=== PATIENT | female | born 1950 | race Hispanic/Latino ===

== ENCOUNTER 2018-01-26 02:34 | Emergency (ER) | payer BC, OTHER ==
--- OUTSIDE RECORDS SUMMARY | 2018-01-26 02:36 | XMS REPORT ---
:1950 [facility] Address [address] [place] [address] Dr. Roth [address] [place] [address] Care Team Providers Name Role Phone Nilay Robbins Unavailable Unavailable Problems This patient has no known problems. Allergies, Adverse Reactions, Alerts This patient has no known allergies or adverse reactions. Medications This patient has no known medications. Encounters Start End Encounter Admission Attending Care Care Encounter Date/Time Date/Time Type Type Clinicians Facility Department ID 2018-01-10 2018-01-10 Outpatient PALLAVI Robbins [id number] 09:13:00 09:13:00 Nilay 2017-04-12 2017-04-12 Outpatient PALLAVI Robbins [id number] 13:46:00 13:46:00 Nilay 2016-07-30 2016-07-30 Outpatient PALLAVI Robbins [id number] 13:19:00 13:19:00 Nilay
--- OUTSIDE RECORDS SUMMARY | 2018-01-26 02:36 | XMS REPORT | Clinical Summary ---
:1950 Author Organization [facility] Address [address] [place] [address] Care Team Providers Name Role Phone Casey Adkins MD Primary Care Provider Allergies Active Allergy Reactions Severity Noted Date Comments Sulfa (Sulfonamide Antibiotics) 07/09/2015 Medications Medication Sig Dispensed Refills Start End Date Status Date COPAXONE 40 mg/mL Inject 1 mL 3 0 Active syringe times a week by 6 subcutaneous route levothyroxine Take 1 tablet by 30 tablet 5 Active (SYNTHROID, mouth once daily 6 LEVOTHROID) 50 MCG on an empty tabletIndications: stomach Acquired hypothyroidism carvedilol (COREG) Take 1 tablet (25 180 tablet 3 Active 25 MG mg total) by 6 tabletIndications: mouth 2 (two) Essential times a day with hypertension meals. lisinopril Take 1 tablet (20 180 tablet 3 Active (PRINIVIL,ZESTRIL) mg total) by 6 20 MG mouth 2 (two) tabletIndications: times a day. Essential hypertension PARoxetine (PAXIL) Take 1 tablet(s) 90 tablet 3 Active 20 MG every day by oral 6 tabletIndications: route. Depression mometasone [place] 2 spray(s) 51 g 3 Active (NASONEX) 50 every day by 6 mcg/actuation nasal intranasal route. sprayIndications: Allergic rhinitis, unspecified allergic rhinitis type ondansetron Take 4 mg by 0 Active (ZOFRAN) 4 MG mouth every 8 tablet (eight) hours as needed for nausea or vomiting. CETIRIZINE HCL Take 1 tablet by 0 Active (ALLERGY RELIEF, mouth daily. CETIRIZINE, ORAL) esomeprazole 0 Active (NexIUM) 40 MG 8 capsule simethicone (GAS-X Take 1 tablet by 0 Active EXTRA STRENGTH mouth daily. ORAL) glycopyrrolate TAKE 1 TABLET BY 0 11/24/19 Discontinued (ROBINUL) 2 MG MOUTH TWICE A DAY 18 tablet cephalexin (KEFLEX) Take 500 mg by 0 11/24/19 Discontinued 500 MG capsule mouth 3 (three) 18 times a day. omeprazole Take 40 mg by 1 11/24/19 Discontinued (PriLOSEC) 40 MG mouth once daily. 7 18 capsule Active Problems Not on file Encounters Date Type Specialty Care Team Description 12/22/2017 Telephone Gastroenterology Sriram Holbrook MD 12/02/2017 Orders Only Gastroenterology Sriram Holbroko MD 11/28/2017 Telephone Gastroenterology Sriram Holbrook MD 11/25/2017 Telephone Gastroenterology Meseret Donis MA 11/23/2017 Lab Lab Sriram Holbrook, Diarrhea, unspecified MD type 11/23/2017 Office Visit Gastroenterology Sriram Holbrook, Diarrhea, unspecified MD type (Primary Dx) 03/23/2017 Office Visit Gastroenterology Sriram Holbrook PUD (peptic ulcer MD disease) (Primary Dx) after 01/25/2017 Family History Medical History Relation Name Comments No Known Problems Brother No Known Problems Father No Known Problems Maternal Aunt No Known Problems Maternal Grandfather No Known Problems Maternal Grandmother No Known Problems Maternal Uncle No Known Problems Mother No Known Problems Paternal Aunt No Known Problems Paternal Grandfather No Known Problems Paternal Grandmother No Known Problems Paternal Uncle No Known Problems Sister Relation Name Status Comments Brother Father Maternal Aunt Maternal Grandfather Maternal Grandmother Maternal Uncle Mother Paternal Aunt Paternal Grandfather Paternal Grandmother Paternal Uncle Sister Social History Tobacco Use Types Packs/Day Years Used Date Never Smoker Smokeless Tobacco: Never Used Alcohol Use Drinks/Week oz/Week Comments No Sex Assigned at Date Recorded Not on file Job Start Date Occupation Industry Not on file Not on file Not on file Travel History Travel Start Travel End No recent travel history available. 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 Respiratory Rate - - Oxygen Saturation - - Inhaled Oxygen Concentration - - Weight 59.9 kg (132 lb) 11/23/2017 1:34 PM CDT Height 152.4 cm (5') 11/23/2017 1:34 PM CDT Body Mass Index 25.78 11/23/2017 1:34 PM CDT Plan of Treatment Health Maintenance Due Date Last Done Comments BREAST CANCER SCREENING 1998 SHINGRIX VACCINE (1 of 2) 1998 ZOSTER VACCINE 2008 PNEUMOCOCCAL POLYSACCHARIDE VACCINE AGE 65 AND OVER 2013 PNEUMOCOCCAL-13 2013 INFLUENZA VACCINE 09/21/2017 COLON CANCER SCREENING 09/18/2025 09/19/2015 Procedures Procedure Name Priority Date/Time Associated Comments Diagnosis TEST IN QUESTION - NO Routine 12/02/2017 10:16 Results for this TEST FOR CONTAINER AM CDT procedure are in the results section. PDGFRA MUTATION Routine 12/02/2017 10:16 Results for this ANALYSIS AM CDT procedure are in the results section. C-REACTIVE PROTEIN Routine 11/23/2017 1:51 Diarrhea, Results for this PM CDT unspecified type procedure are in the results section. SEDIMENTATION RATE Routine 11/23/2017 1:51 Diarrhea, Results for this PM CDT unspecified type procedure are in the results section. BASIC METABOLIC PANEL Routine 11/23/2017 1:51 Diarrhea, Results for this PM CDT unspecified type procedure are in the results section. CBC HEMOGRAM Routine 11/23/2017 1:51 Diarrhea, Results for this PM CDT unspecified type procedure are in the results section. after 01/25/2017 Results PDGFRA mutation analysis (12/02/2017 10:16 AM CDT) PDGFRA MUTATION ANALYSIS [facility] Comment: [facility] * Test not performed.* * No suitable specimen received. * Narrative Performed At FASTING: [facility]KNOWN [facility] Resulting Agency Comment Performing Organization Information: Site ID: [id number] Name: [facility] [place], Address: [address] [place] [phone] Director: Ni Stoner MD,PhD,RAJIV Performing Organization Address City/[facility] Cent[facility] Phone Number [facility] [address] [place] [address] [phone] [facility] [place] TEST IN QUESTION - NO TEST FOR CONTAINER (12/02/2017 10:16 AM CDT) TEST IN QUESTION - NO [facility] TEST FOR CONTAINER Comment: NO TEST(S) ARE INDICATED ON THE REQUISITION FOR THE FOLLOWING SPECIMEN(S). SPECIMEN(S) RECEIVED: RAW STOOL [facility] Comment [facility] Comment: To prevent further delays in testing, please complete information above and fax to [phone] to resolve this order. NO COLLECTION DATE RECEIVED. WE HAVE USED THE DATE THE SPECIMEN WAS RECEIVED BY THIS LABORATORY THE COLLECTION DATE. IF THIS IS INCORRECT, PLEASE CONTACT CLIENT SERVICES. PHONE NUMBER: [phone] Narrative Performed At FASTING: [facility] Resulting Agency Comment Performing Organization Information: Site ID: [id number] Name: [facility] Address: [address] [place] [phone] Director: Regi Zamudio Performing Organization Address [facility] Phone Number [facility] [address] [address] Sedimentation rate (11/23/2017 1:51 PM CDT) Sedimentation rate 9 < OR=30 mm/h [facility] [place] Specimen Blood Resulting Agency Comment Performing Organization Information: Site ID: [id number] Name: [facility] Address: [address] [place] [phone] Director: Regi Zamudio Performing Organization Address [facility] Phone Number [facility] [address] [address] CBC hemogram (11/23/2017 1:51 PM CDT) WBC 5.9 3.8 - 10.8 Thousand/uL [facility] [place] RBC 4.68 3.80 - 5.10 Million/uL [facility] [place] HGB 14.0 11.7 - 15.5 g/dL [facility] HCT 42.4 35.0 - 45.0 % [facility] [place] MCV 90.6 80.0 - 100.0 fL [facility] [place] MCH 29.9 27.0 - 33.0 pg [facility] [place] MCHC 33.0 32.0 - 36.0 g/dL [facility] [place] RDW 12.3 11.0 - 15.0 % [facility] [place] Platelet count 268 140 - 400 Thousand/uL [facility] [place] MPV 10.6 7.5 - 12.5 fL [facility] [place] Specimen Blood Resulting Agency Comment Performing Organization Information: Site ID: [id number] Name: [facility] Address: [address] [place] [phone] Director: Regi Zamudio Performing Organization Address City/[facility] Phone Number [facility] [address] [address] C-reactive protein (11/23/2017 1:51 PM CDT) CRP 1.0 <8.0 mg/L [facility] [place] Specimen Blood Resulting Agency Comment Performing Organization Information: Site ID: [id number] Name: [facility] Address: [address] [place] [phone] Director: Regi Zamudio Performing Organization Address City/[facility] Phone Number [facility] [address] [address] Basic metabolic panel (11/23/2017 1:51 PM CDT) Glucose 88 65 - 99 mg/dL [facility] Comment: [place] Fasting reference interval BUN, whole blood 16 7 - 25 mg/dL [facility] [place] Creatinine 0.57 0.50 - 0.99 [facility] Comment: mg/dL [place] For patients >49 years of age, the reference limit for Creatinine is approximately 13% higher for people identified as -Australian. EGFR Non-Afr. Australian 95 > OR=60 [facility] mL/min/1.73m2 [place] EGFR 110 > OR=60 [facility] mL/min/1.73m2 [place] BUN/creatinine ratio NOT APPLICABLE 6 - 22 (calc) [facility] [place] Sodium 144 135 - 146 mmol/L [facility] Potassium 4.7 3.5 - 5.3 mmol/L [facility] [place] Chloride 106 98 - 110 mmol/L [facility] [place] CO2 30 20 - 32 mmol/L [facility] [place] Calcium 9.5 8.6 - 10.4 mg/dL [facility] [place] Specimen Blood Resulting Agency Comment Performing Organization Information: Site ID: [id number] Name: [facility] Address: [address] [place] [phone] Director: Regi Zamudio Performing Organization Address City/State/[facility]ode Phone Number [facility] [address] [place] [address] after 01/25/2017 Insurance Payer Benefit Plan / Group Subscriber ID Type Phone Address BCBS BCBS CHOICE PPO/FEDERAL EMPL PPO xxxxxxxxxxxx PPO
--- OUTSIDE RECORDS SUMMARY | 2018-01-26 02:36 | XMS REPORT | Clinical Summary ---
:1950 Author Organization [facility] Address [address] [place] [address] Care Team Providers Name Role Phone Unavailable Primary Care Provider Unavailable Allergies Active Allergy Reactions Severity Noted Date Comments Sulfa (Sulfonamide Antibiotics) Hives 09/18/2015 Medications Medication Sig Dispensed Refills Start Date End Date Status lisinopril Take 20 mg by 0 Active (PRINIVIL,ZESTRIL) 20 mouth daily. MG tablet carvedilol (COREG) 12.5 Take 12.5 mg by 0 Active MG tablet mouth 2 (two) times daily with breakfast and dinner. glycopyrrolate Take 2 mg by 0 Active (ROBINUL) 2 MG tablet mouth 3 (three) times daily. glatiramer (COPAXONE) Inject 0 Active 40 mg/mL Syrg subcutaneously. Active Problems Not on file Social History Tobacco Use Types Packs/Day Years Used Date Former Smoker Quit: 09/17/1977 Alcohol Use Drinks/Week oz/Week Comments No Sex Assigned at Date Recorded Not on file Job Start Date Occupation Industry Not on file Not on file Not on file Travel History Travel Start Travel End No recent travel history available. Last Filed Vital Signs Not on file Plan of Treatment Not on file Results Not on fileafter 01/25/2017 Insurance Payer Benefit Plan / Group Subscriber ID Type Phone Address [employer] - [employer] HMO POS QPOS xxxxxxxxxx HMO/POS
[2018-01-26 03:41] LABS: Absolute Lymphocytes (CBC) 1.6 K/uL (0.7-4.9); Absolute Monocytes 0.4 K/uL (0.1-1.3); Absolute Neutrophil 8.1 K/uL (1.8-8.0); Basophils % 0.8 % (0-1.3); Eosinophils % 0.4 % (0-4.4); Hematocrit 42.5 % (36.0-45.0); Lymphocytes % 15.8 % (15.3-44.8); MCH 30.8 pg (27.0-35.0); MCV 89.5 fL (80-100); Monocytes % 4.3 % (3.3-12.3); RBC Red Blood Cell Count 4.75 M/uL (3.86-4.86)
[2018-01-26 04:06] LABS: ALT/SGPT 33 U/L (12-78); AST/SGOT 18 U/L (15-37); Albumin 3.8 g/dL (3.4-5.0); Alkaline Phosphatase 136 U/L (45-117); BUN Blood Urea Nitrogen 14 mg/dL (7-18); Bicarbonate 27 mmol/L (21-32); Bilirubin Direct 0.1 mg/dL (0-0.2); Bilirubin Total 0.4 mg/dL (0.2-1.0); Glucose Level 151 mg/dL (74-106); Lipase 200 U/L (73-393); Potassium 3.4 mmol/L (3.5-5.1); Protein, Total 7.7 g/dL (6.4-8.2); Sodium Level 137 mmol/L (136-145)
--- NOTE | 2018-01-26 05:38 | ER ---
Nurse's Notes [facility] Name: Ramandeep Gooden Age: 67 yrs Sex: Female : 1950 Arrival Date: 01/26/2018 Time: 02:35 Bed 18 Private MD: Casey Adkins Diagnosis: Anal fissure, unspecified;Left sided colitis Presentation: 01/26 03:14 Presenting complaint: Patient states: rectal pain and bleeding after straining to have aa1 a bowel movement yesterday morning. Reports being seen by Dr. Guerrero and was told to come to the ED if her pain became worse. Pt reports bright red blood mixed with stool. Transition of care: patient was not received from another setting of care. Onset of symptoms was January 25, 2018 at 10:30. Risk Assessment: Do you want to hurt yourself or someone else? Patient reports no desire to harm self or others. Initial Sepsis Screen: Does the patient meet any 2 criteria? No. Patient's initial sepsis screen is negative. Does the patient have a suspected source of infection? No. Patient's initial sepsis screen is negative. Care prior to arrival: None. 03:14 Method Of Arrival: Ambulatory aa1 03:14 Acuity: BLAINE 3 aa1 Historical: - Allergies: 03:23 Sulfa (Sulfonamide Antibiotics); aa1 - Home Meds: 03:23 Lisinopril Oral [Active]; Paxil Oral [Active]; levothyroxine oral [Active]; aa1 - PMHx: 03:23 Diabetes - NIDDM; Multiple Sclerosis; Hypertension; Hypothyroidism; aa1 - PSHx: 03:23 Hysterectomy; Appendectomy; Cholecystectomy; aa1 - Immunization history:: Flu vaccine is up to date. - Social history:: Smoking status: Patient/guardian denies using tobacco. - Ebola Screening: : No symptoms or risks identified at this time. Screenin:24 Abuse screen: Denies threats or abuse. Denies injuries from another. Nutritional aa1 screening: No deficits noted. Tuberculosis screening: No symptoms or risk factors identified. Fall Risk None identified. Assessment: 03:24 General: Appears in no apparent distress. comfortable, Behavior is calm, cooperative, aa1 appropriate for age. Pain: Complains of pain in anus. Neuro: Level of Consciousness is awake, alert, obeys commands, Oriented to person, place, time, situation, Moves all extremities. Respiratory: Airway is patent Respiratory effort is even, unlabored, Respiratory pattern is regular, symmetrical. GI: Abdomen is non-distended, Bowel sounds present X 4 quads. Abd is soft X 4 quads Reports lower abdominal pain, rectal bleeding, bloody stool. : No signs and/or symptoms were reported regarding the genitourinary system. EENT: No signs and/or symptoms were reported regarding the EENT system. Derm: Skin is intact, is healthy with good turgor, Skin is pink, warm \T\ dry. Musculoskeletal: Circulation, motion, and sensation intact. Capillary refill < 3 seconds. 05:16 Reassessment: Patient appears in no apparent distress at this time. Patient and/or aa1 family updated on plan of care and expected duration. Pain level reassessed. Patient is alert, oriented x 3, equal unlabored respirations, skin warm/dry/pink. Awaiting CT results. 06:00 Reassessment: Patient appears in no apparent distress at this time. Patient is alert, aa1 oriented x 3, equal unlabored respirations, skin warm/dry/pink. Discussed d/c \T\ f/u instructions with pt; denies questions or concerns at this time Patient states feeling better. Vital Signs: 03:23 BP 178 / 98; Pulse 88; Resp 18; Temp 98.0; Pulse Ox 98% ; Weight 59.87 kg; Height 5 ft. aa1 0 in. (152.40 cm); 04:42 BP 167 / 88; Pulse 76; Resp 16; Pulse Ox 99% on R/A; aa1 05:14 BP 157 / 91; Pulse 92; Resp 18; Pulse Ox 98% on R/A; aa1 06:00 BP 167 / 89; Pulse 71; Resp 18; Temp 98.1; Pulse Ox 98% on R/A; Pain 0/10; aa1 03:23 Body Mass Index 25.78 (59.87 kg, 152.40 cm) aa1 ED Course: 02:35 Patient arrived in ED. es 02:36 Casey Adkins MD is Private Physician. es 03:01 Arias Marin MD is Attending Physician. gs 03:12 Jasmin Samuels RN is Primary Nurse. aa1 03:15 Served as a toy packer during rectal exam. aa1 03:18 Triage completed. aa1 03:23 Arm band placed on right wrist. aa1 03:24 Patient has correct armband on for positive identification. Placed in gown. Bed in low aa1 position. Call light in reach. Pulse ox on. NIBP on. Warm blanket given. 03:24 Initial lab(s) drawn, by ED staff, sent to lab. Inserted saline lock: 18 gauge in left aa1 antecubital area, using aseptic technique. ,using aseptic technique. by Brandt Quinn RN Blood collected. 03:33 Radiology exam delayed due to lab results not completed at this time. (BUN/Creatinine). 04:50 CT completed. Patient tolerated procedure well. Patient moved to CT via wheelchair. Patient moved back from CT. 05:35 Nicho Guerrero MD is Referral Physician. 06:02 IV discontinued, intact, bleeding controlled, No redness/swelling at site. Pressure aa1 dressing applied. 06:19 CT Abd/Pelvis - W/Contrast In Process Unspecified. EDMS Administered Medications: No medications were administered Outcome: 05:38 Discharge ordered by . 06:02 Discharged to home ambulatory. aa1 06:02 Condition: good 06:02 Discharge instructions given to patient, Instructed on discharge instructions, follow up and referral plans. medication usage, Demonstrated understanding of instructions, follow-up care, medications, Prescriptions given X 1. 06:03 Patient left the ED. aa1 Signatures: Dispatcher [employer] EDMS Jasmin Samuels RN RN aa1 Maryam Peguero Ervin Arias Marin MD MD
--- NOTE | 2018-01-26 05:39 | EDPHYS ---
Physician Documentation [facility] Name: Ramandeep Gooden Age: 67 yrs Sex: Female : 1950 Arrival Date: 01/26/2018 Time: 02:35 Bed 18 Private MD: Casey Adkins ED Physician Arias Marin HPI: 01/26 05:24 This 67 yrs old Female presents to ER via Ambulatory with complaints of Rectal gs Pain, Rectal Bleeding. 05:24 The patient presents to the emergency department with bleeding from the rectum/anus, gs pain in the rectal area. Onset: The symptoms/episode began/occurred today. 05:24 Associate signs and symptoms: Pertinent positives: abdominal pain in the left lower gs quadrant, constipation. The patient has experienced similar episodes in the past, a few times. The patient has been recently seen by a physician: Dr. mcneal. Historical: - Allergies: 03:23 Sulfa (Sulfonamide Antibiotics); aa1 - Home Meds: 03:23 Lisinopril Oral [Active]; Paxil Oral [Active]; levothyroxine oral [Active]; aa1 - PMHx: 03:23 Diabetes - NIDDM; Multiple Sclerosis; Hypertension; Hypothyroidism; aa1 - PSHx: 03:23 Hysterectomy; Appendectomy; Cholecystectomy; aa1 - Immunization history:: Flu vaccine is up to date. - Social history:: Smoking status: Patient/guardian denies using tobacco. - Ebola Screening: : No symptoms or risks identified at this time. ROS: 05:24 All other systems are negative. gs Exam: 05:24 Head/Face: Normocephalic, atraumatic. Eyes: Pupils equal round and reactive to light, gs extra-ocular motions intact. Lids and lashes normal. Conjunctiva and sclera are non-icteric and not injected. Cornea within normal limits. Periorbital areas with no swelling, redness, or edema. ENT: Nares patent. No nasal discharge, no septal abnormalities noted. Tympanic membranes are normal and external auditory canals are clear. Oropharynx with no redness, swelling, or masses, exudates, or evidence of obstruction, uvula midline. Mucous membranes moist. Neck: Trachea midline, no thyromegaly or masses palpated, and no cervical lymphadenopathy. Supple, full range of motion without nuchal rigidity, or vertebral point tenderness. No Meningismus. Chest/axilla: Normal chest wall appearance and motion. Nontender with no deformity. No lesions are appreciated. Cardiovascular: Regular rate and rhythm with a normal S1 and S2. No gallops, murmurs, or rubs. Normal PMI, no JVD. No pulse deficits. Respiratory: Lungs have equal breath sounds bilaterally, clear to auscultation and percussion. No rales, rhonchi or wheezes noted. No increased work of breathing, no retractions or nasal flaring. Skin: Warm, dry with normal turgor. Normal color with no rashes, no lesions, and no evidence of cellulitis. MS/ Extremity: Pulses equal, no cyanosis. Neurovascular intact. Full, normal range of motion. Neuro: Awake and alert, GCS 15, oriented to person, place, time, and situation. Cranial nerves II-XII grossly intact. Motor strength 5/5 in all extremities. Sensory grossly intact. Cerebellar exam normal. Normal gait. 05:24 Constitutional: The patient appears alert, awake. 05:24 Abdomen/GI: Palpation: mild abdominal tenderness, in the left lower quadrant, rebound tenderness, is not appreciated, Rectal exam: tenderness, that is mild, large fissure, the exam is chaperoned by the nurse. Vital Signs: 03:23 BP 178 / 98; Pulse 88; Resp 18; Temp 98.0; Pulse Ox 98% ; Weight 59.87 kg; Height 5 ft. aa1 0 in. (152.40 cm); 04:42 BP 167 / 88; Pulse 76; Resp 16; Pulse Ox 99% on R/A; aa1 05:14 BP 157 / 91; Pulse 92; Resp 18; Pulse Ox 98% on R/A; aa1 06:00 BP 167 / 89; Pulse 71; Resp 18; Temp 98.1; Pulse Ox 98% on R/A; Pain 0/10; aa1 03:23 Body Mass Index 25.78 (59.87 kg, 152.40 cm) aa1 MDM: 03:07 Patient medically screened. 05:24 Differential diagnosis: hemorrhoids, fissure, diverticulitis. Data reviewed: vital gs signs, nurses notes. Response to treatment: the patient's symptoms have markedly improved after treatment, and as a result, I will discharge patient. 01/26 03:08 Order name: Basic Metabolic Panel 01/26 03:08 Order name: CBC with Diff 01/26 03:08 Order name: Creatinine for Radiology 01/26 03:08 Order name: Hepatic Function 01/26 03:08 Order name: Lipase 01/26 04:02 Order name: CBC with Automated Diff; Complete Time: 05:33 EDMS 01/26 03:08 Order name: IV Saline Lock; Complete Time: 03:28 01/26 03:08 Order name: Labs collected and sent; Complete Time: 03:28 01/26 03:08 Order name: CT Abd/Pelvis - W/Contrast 01/26 04:03 Order name: Creatinine (Radiology Only); Complete Time: 05:33 EDMS 01/26 04:07 Order name: Basic Metabolic Panel; Complete Time: 05:33 EDMS 01/26 04:07 Order name: Liver (Hepatic) Function; Complete Time: 05:33 EDMS 01/26 04:07 Order name: Lipase; Complete Time: 05:33 EDMS Administered Medications: No medications were administered Disposition: 01/26/18 05:38 Discharged to Home. Impression: Anal fissure, unspecified, Left sided colitis. - Condition is Stable. - Discharge Instructions: Anal Fissure, Adult, [id number], Colitis. - Prescriptions for Flagyl 500 mg Oral Tablet - take 1 tablet by ORAL route every 12 hours for 7 days; 14 tablet. - Medication Reconciliation Form, Thank You Letter, Antibiotic Education, Prescription Opioid Use form. - Follow up: Nicho Mcneal MD; When: 2 - 3 days; Reason: Re-evaluation by your physician. Signatures: Dispatcher [employer] EDMS Jasmin Samuels RN RN aa1 Arias Marin MD MD Corrections: (The following items were deleted from the chart) 06:03 05:38 01/26/2018 05:38 Discharged to Home. Impression: Anal fissure, unspecified; Left aa1 sided colitis. Condition is Stable. Forms are Medication Reconciliation Form, Thank You Letter, Antibiotic Education, Prescription Opioid Use. Follow up: Nicho Mcneal; When: 2 - 3 days; Reason: Re-evaluation by your physician.
[2018-01-26 06:11] VITALS: O2SAT 98
[2018-01-26 06:12] VITALS: BP 167/89; TEMP 98.1
--- NOTE | 2018-01-26 07:28 | RAD REPORT ---
EXAM DESCRIPTION: CT - Abdomen Pelvis W Contrast - 01/26/2018 5:31 am CLINICAL HISTORY: Abdominal pain, pelvic pain, rectal pain with bloody stool ; prior hysterectomy, a ppendectomy and cholecystectomy. A preliminary report was provided at the time of the study and reviewed prior to final report. COMPARISON: CT study May 2010 TECHNIQUE: Biphasic, helical CT imaging of the abdomen and pelvis was performed following 100 ml non -ionic IV contrast. Oral contrast was given. All CT scans are performed using dose optimization technique as appropriate and may include automated exposure control or mA/KV adjustment according to patient size. FINDINGS: No infiltrate, pleural effusion or acute lung base finding. A 5 millimeter noncalcified no dule is present in the posterior right lung base not clearly seen on the 2010 comparison. No follow-u p is needed if the patient is considered low risk. For a high risk patient, CT study could be perform ed in 12 months. The liver, spleen, and pancreas show no suspicious findings. Cholecystectomy clips are present with n o abnormal biliary tree dilatation. Symmetric renal function is seen with no hydronephrosis or suspicious renal mass. No pyelonephritis o r acute renal parenchymal process. Mostly contracted urinary bladder shows no suspicious findings. Ut erus is absent. Ovaries are absent or atrophic. No gastric dilatation or wall thickening. Stomach is distended but not dilated by retained fluid. Thi s may be a gastro paresis secondary to subsequently detailed colon findings. Gastric outlet is not pinto spected. No acute small bowel finding. Moderate stool volume is seen in the right-side of the colon. No suspicious finding in the right-side of the colon. Transverse colon is mostly decompressed. There is an 11 millimeter rounded low-density area in the mid transverse colon. This is probably focal flui d. A hypodense polyp would be possible and can be correlated with any recent or pending colonoscopy. At the splenic flexure wall thickening and edema are seen in the colon. The circumferential wall thic kening and edema progress along the course of the descending colon sigmoid colon and rectum. Congesti on or edema is seen in the adjacent fatty tissues. No one focal area of masslike density seen. No free air, free fluid or pneumatosis. No mass or bulky lymphadenopathy. Small periumbilical fat onl y hernia seen. This has not change from 2011. No omental thickening. No adrenal abnormality. No suspicious bony findings. IMPRESSION: Nonspecific moderate severity colitis pattern from splenic flexure to distal rectum. Sev erity is less than what was seen in 2011. No focal colon mass identified. Low-density area in the mid transverse colon is probably focal fluid. Mid transverse colon hypodense polyp would be possible and can be correlated with any prior or pendi ng colonoscopy. No abscess, free air or surgically emergent finding. Fluid distended stomach likely a gastro paresis related to the colitis. Gastric outlet obstruction or mass not suspected. Small 5 mm right lung base pulmonary nodule warranting no further follow-up if the patient is low ris k. High risk patient can be re-evaluated with CT in 12 months.
== END 2018-01-26 06:03 | disposition home or self-care (01) ==
LOC: ER 02:34
DX: K60.2 Anal fissure, unspecified (principal); K51.50 Left sided colitis without complications; I10 Essential (primary) hypertension; E11.9 Type 2 diabetes mellitus without complications; E03.9 Hypothyroidism, unspecified; Z88.2 Allergy status to sulfonamides
CPT/HCPCS: 36415; 74177; 80048; 80076; 83690; 85025; 99284; Q9967

== ENCOUNTER 2018-01-26 18:07 | Observation (INO) | payer BC, OTHER ==
--- OUTSIDE RECORDS SUMMARY | 2018-01-26 18:09 | XMS REPORT ---
:1950 [facility] Address [address] [place] [address] Dr. Roth [address] [place] [id number] Care Team Providers Name Role Phone Nilay Robbins Unavailable Unavailable Problems This patient has no known problems. Allergies, Adverse Reactions, Alerts This patient has no known allergies or adverse reactions. Medications This patient has no known medications. Encounters Start End Encounter Admission Attending Care Care Encounter Date/Time Date/Time Type Type Clinicians Facility Department ID 2018-01-10 2018-01-10 Outpatient PALLAVI Robbins [id number] 09:13:00 09:13:00 Nilay 2017-04-12 2017-04-12 Outpatient PALLAVI Robbins [id number] 13:46:00 13:46:00 Nilay 2016-07-30 2016-07-30 Outpatient PALLAVI Robbins [id number] 13:19:00 13:19:00 Nilay
--- OUTSIDE RECORDS SUMMARY | 2018-01-26 18:09 | XMS REPORT | Clinical Summary ---
:1950 Author Organization [facility] Address [address] [place] [id number] Care Team Providers Name Role Phone Unavailable [...]
--- OUTSIDE RECORDS SUMMARY | 2018-01-26 18:09 | XMS REPORT | Clinical Summary ---
:1950 Author Organization [facility] Address [address] [place] [address] Care Team Providers Name Role Phone Casey [...] by oral 6 tabletIndications: route. 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 * Narrative Performed At FASTING: [facility]KNOWN [facility] Resulting Agency Comment Performing Organization Information: Site ID: [id number] Name: [facility], Address: [address] [place] [id number] Director: Ni Stoner MD,PhD,RAJIV Performing Organization Address [facility] Phone Number [facility] [address] [place] [address] [facility] TEST IN [facility] - NO TEST FOR CONTAINER (12/02/2017 10:16 AM CDT) TEST IN [facility] - NO [facility] TEST FOR CONTAINER Comment: NO TEST(S) ARE INDICATED ON THE REQUISITION FOR THE FOLLOWING SPECIMEN(S). SPECIMEN(S) RECEIVED: RAW STOOL [facility] Comment [facility] Comment: To prevent further delays in testing, please complete information above and fax to [phone] to resolve this order. NO COLLECTION DATE RECEIVED. WE HAVE USED THE DATE THE SPECIMEN WAS RECEIVED BY THIS LABORATORY THE COLLECTION DATE. IF THIS IS INCORRECT, PLEASE CONTACT CLIENT SERVICES. PHONE NUMBER: [phone] Narrative Performed At FASTING: [facility] Resulting Agency Comment Performing Organization Information: Site ID: [id number] Name: [facility] Address: [address] [place] [phone] Director: Regi Zamudio Performing Organization Address [facility] Phone Number [facility] [address] [address] Sedimentation rate (11/23/2017 1:51 PM CDT) Sedimentation rate 9 < OR=30 mm/h [facility] Specimen Blood Resulting Agency Comment Performing Organization Information: Site ID: [id number] Name: [facility] Address: [address] [place] [phone] Director: Regi Zamudio Performing Organization Address [facility] Phone Number [facility] [facility] [address] [address] CBC hemogram (11/23/2017 1:51 PM CDT) WBC 5.9 3.8 - 10.8 Thousand/uL [facility] RBC 4.68 3.80 - 5.10 Million/uL [facility] HGB 14.0 11.7 - 15.5 g/dL [facility] HCT 42.4 35.0 - 45.0 % [facility] MCV 90.6 80.0 - 100.0 fL [facility] MCH 29.9 27.0 - 33.0 pg [facility] MCHC 33.0 32.0 - 36.0 g/dL [facility] RDW 12.3 11.0 - 15.0 % [facility] [place] Platelet count 268 140 - 400 Thousand/uL [facility] MPV 10.6 7.5 - 12.5 fL [facility] Specimen Blood Resulting Agency Comment Performing Organization Information: Site ID: [id number] Name: [facility] Address: [address] [place] [phone] Director: Regi Zamudio Performing Organization Address [facility] Phone Number [employer] [address] [address] C-reactive protein (11/23/2017 1:51 PM CDT) CRP 1.0 <8.0 mg/L [facility] Specimen Blood Resulting Agency Comment Performing Organization Information: Site ID: [id number] Name: [facility] Address: [address] [place] [phone] Director: Regi Zamudio Performing Organization Address [facility] Phone Number [facility] [address] [address] Basic metabolic panel (11/23/2017 1:51 PM CDT) Glucose 88 65 - 99 mg/dL [facility] Comment: [facility] Fasting reference interval BUN, whole blood 16 7 - 25 mg/dL [facility] Creatinine 0.57 0.50 - 0.99 [facility] Comment: mg/dL [facility] For patients >49 years of age, the reference limit for Creatinine is approximately 13% higher for people identified as -Maldivian. EGFR Non-Afr. Maldivian 95 > OR=60 [facility] mL/min/1.73m2 [place] EGFR 110 > OR=60 [facility] mL/min/1.73m2 [place] BUN/creatinine ratio NOT APPLICABLE 6 - 22 (calc) [facility] Sodium 144 135 - 146 mmol/L [facility] Potassium 4.7 3.5 - 5.3 mmol/L [facility] [place] Chloride 106 98 - 110 mmol/L [facility] CO2 30 20 - 32 mmol/L [facility] [place] Calcium 9.5 8.6 - 10.4 mg/dL [facility] Specimen Blood Resulting Agency Comment Performing Organization Information: Site ID: [id number] Name: [facility] Address: [address] [place] [phone] Director: Regi Zamudio Performing Organization Address City/[facility] Phone Number [facility] [place] [address] [place] [address] after 01/25/2017 Insurance Payer Benefit Plan / Group Subscriber ID Type Phone Address BCBS BCBS CHOICE PPO/FEDERAL EMPL PPO xxxxxxxxxxxx PPO
[2018-01-26] MEDS ORDERED: MORPHINE 2 MG/ML SYR ONE (19:14)
[2018-01-26] MEDS ORDERED: NA CHLORIDE 0.9% 1,000 ML ONE (19:14)
[2018-01-26 19:32] LABS: ALT/SGPT 36 U/L (12-78); AST/SGOT 18 U/L (15-37); Albumin 3.9 g/dL (3.4-5.0); Alkaline Phosphatase 130 U/L (45-117); BUN Blood Urea Nitrogen 12 mg/dL (7-18); Bicarbonate 27 mmol/L (21-32); Bilirubin Direct < 0.1 mg/dL (0-0.2); Bilirubin Total 0.3 mg/dL (0.2-1.0); Glucose Level 130 mg/dL (74-106); Lipase 204 U/L (73-393); Potassium 3.7 mmol/L (3.5-5.1); Protein, Total 7.8 g/dL (6.4-8.2); Sodium Level 139 mmol/L (136-145)
[2018-01-26 20:07] LABS: Absolute Lymphocytes (CBC) 1.8 K/uL (0.7-4.9); Absolute Monocytes 0.6 K/uL (0.1-1.3); Basophils % 0.6 % (0-1.3); Eosinophils % 0.5 % (0-4.4); Hematocrit 47.1 % (36.0-45.0); Lymphocytes % 17.2 % (15.3-44.8); MCH 30.7 pg (27.0-35.0); MCV 91.9 fL (80-100); MPV 8.6 fL (7.6-11.3); Monocytes % 5.4 % (3.3-12.3); RBC Red Blood Cell Count 5.13 M/uL (3.86-4.86)
[2018-01-26 20:27] LABS: Protime INR 1.01
[2018-01-26 21:02] LABS: Urine Blood 1+ (NEG); Urine Glucose NEGATIVE (NEG); Urine Protein NEGATIVE (NEG)
[2018-01-26] MEDS ORDERED: METRONIDAZOLE 500mg IVPB 500 MG/100 ML BAG IV ONE (21:20)
--- NOTE | 2018-01-26 21:39 | ER ---
Nurse's Notes [facility] Name: Ramandeep Gooden Age: 67 yrs Sex: Female : 1950 Arrival Date: 01/26/2018 Time: 18:08 Bed 27 Private MD: Nicho Guerrero H Diagnosis: Other abdominal pain;Colitis;Gastrointestinal hemorrhage, unspecified Presentation: 01/26 18:40 Presenting complaint: Patient states: PATIENT HAVE A BLOODY STOOL WHICH STARTED rv YESTERDAY. SHE WENT TO CLINIC BUT SENT HERE IN ED. DIAGNOSTICS WERE DONE AND WAS DISCHARGE AT 0600H. SHE TOOK FIRST DOSE OF PRESCRIBED MEDS. SHE STILL COMPLAINS OF ABDOMINAL PAIN AND BLOODY STOOL. Transition of care: patient was not received from another setting of care. Onset of symptoms was January 25, 2018 at 08:00. Risk Assessment: Do you want to hurt yourself or someone else? Patient reports no desire to harm self or others. Initial Sepsis Screen: Does the patient meet any 2 criteria? No. Patient's initial sepsis screen is negative. Does the patient have a suspected source of infection? No. Patient's initial sepsis screen is negative. Care prior to arrival: None. 18:40 Method Of Arrival: Ambulatory rv 18:40 Acuity: BLAINE 3 rv Historical: - Allergies: 18:44 Sulfa (Sulfonamide Antibiotics); rv 18:44 MILK PRODUCTS; rv - Home Meds: 18:44 levothyroxine oral [Active]; lisinopril Oral [Active]; Paxil Oral [Active]; rv - PMHx: 18:44 Diabetes - NIDDM; Hypertension; Hypothyroidism; Multiple Sclerosis; rv - PSHx: 18:44 Hysterectomy; Cholecystectomy; rv - Immunization history:: Adult Immunizations up to date, Flu vaccine is up to date. - Social history:: Smoking status: Patient/guardian denies using tobacco, never smoked. - Ebola Screening: : Patient negative for fever greater than or equal to 101.5 degrees Fahrenheit, and additional compatible Ebola Virus Disease symptoms Patient denies exposure to infectious person Patient denies travel to an Ebola-affected area in the 21 days before illness onset. Screenin:45 Abuse screen: Denies threats or abuse. Denies injuries from another. Nutritional rv screening: No deficits noted. Tuberculosis screening: No symptoms or risk factors identified. Fall Risk None identified. 18:45 Fall Risk No fall in past 12 months (0 pts). Secondary diagnosis (15 points) impaired rv mobility, No IV (0 pts). Ambulatory Aid- Crutches/Cane/Walker (15 pts). Gait- Impaired (20 pts.). Mental Status- Oriented to own ability (0 pts). Total Trinh Fall Scale indicates High Risk Score (45 or more points). Fall prevention measures have been instituted. Side Rails Up X 2 Placed Close to Nursing Station Frequent Obs/Assessments Occuring As available patient and family educated on Fall Prevention Program and Strategies. Assessment: 18:45 General: Appears in no apparent distress. uncomfortable, Behavior is calm, cooperative. rv Pain: Complains of pain in abdomen. Neuro: Level of Consciousness is awake, alert, obeys commands, Oriented to person, place, time, situation. Cardiovascular: Capillary refill < 3 seconds. Respiratory: Airway is patent. GI: Bowel sounds present X 4 quads. Abd is soft and non tender X 4 quads. : No signs and/or symptoms were reported regarding the genitourinary system. EENT: No signs and/or symptoms were reported regarding the EENT system. Derm: Skin is intact. Musculoskeletal: No signs and/or symptoms reported regarding the musculoskeletal system. 20:08 Reassessment: Patient appears in no apparent distress at this time. PAIN HAS IMPROVED rv AFTER MORPHINE. 21:07 Reassessment: Patient appears in no apparent distress at this time. rv 22:14 Reassessment: Patient appears in no apparent distress at this time. Patient is alert, rv oriented x 3, equal unlabored respirations, skin warm/dry/pink. Vital Signs: 18:44 BP 146 / 97; Pulse 89; Resp 16; Pulse Ox 99% on R/A; Weight 55.34 kg (R); rv 18:48 Temp 97.9(O); rv 19:00 BP 133 / 90; Pulse 87; Resp 16; Pulse Ox 97% on R/A; rv 19:30 BP 149 / 94; Pulse 90; Resp 17; Pulse Ox 98% on R/A; rv 20:00 BP 162 / 89; Pulse 92; Resp 15 S; Pulse Ox 98% on R/A; rv 20:30 BP 164 / 99; Pulse 91; Resp 17; Pulse Ox 99% on R/A; rv 21:00 BP 162 / 93; Pulse 94; Resp 16; Pulse Ox 100% on R/A; rv 22:00 BP 158 / 94; Pulse 95; Resp 17; Pulse Ox 100% on R/A; rv 22:13 BP 164 / 89; Pulse 86; Resp 16; Pulse Ox 97% on R/A; rv ED Course: 18:08 Patient arrived in ED. sb2 18:08 Nicho Guerrero MD is Private Physician. sb2 18:30 Patient has correct armband on for positive identification. Bed in low position. Call jp3 light in reach. Side rails up X 1. Side rails up X2. Pulse ox on. NIBP on. 18:30 Warm blanket given. Pillow given. jp3 18:35 Lorenzo Gray PA is PHCP. cp 18:35 Anish Thomas MD is Attending Physician. cp 18:42 Triage completed. rv 18:57 Urine collected: clean catch specimen, clear, estefania colored, Amount Voided: 60mL. jp3 19:00 Inserted saline lock: 20 gauge in right antecubital area, using aseptic technique. rv Blood collected. 19:20 Arias Marin MD is Attending Physician. cp 19:22 Basic Metabolic Panel Sent. rv 19:22 CBC with Diff Sent. rv 19:22 Creatinine for Radiology Sent. rv 19:22 Hepatic Function Sent. rv 19:22 Lipase Sent. rv 19:24 Urine Dipstick--Ancillary (enter results) Sent. rv 19:24 Magnesium Sent. rv 20:09 Patient notified of wait time Emesis basin given. rv 21:34 Casey Adkins MD is Hospitalizing Provider. cp 23:01 No provider procedures requiring assistance completed. Patient admitted, IV remains in rv place. intact. Administered Medications: 19:05 Drug: morphine 2 mg Route: IVP; Site: right antecubital; rv 22:11 Follow up: Response: Pain is decreased rv 19:05 Drug: NS 0.9% 1000 ml Route: IV; Rate: 125 ml/hr; Site: right antecubital; rv 21:20 Drug: metroNIDAZOLE 500 mg Volume: 100 ml; Route: IVPB; Infused Over: 30 mins; Site: rv right antecubital; 21:59 Follow up: IV Status: Completed infusion rv 22:11 Drug: Cipro 400 mg Volume: 200 ml; Route: IVPB; Infused Over: 60 mins; Site: right rv antecubital; Outcome: 21:38 Decision to Hospitalize by Provider. blaise 23:01 Admitted to Med/surg accompanied by tech, via wheelchair, room 228, with chart, Report rv called to VERONICA STEIN 23:01 Condition: good 23:01 Instructed on the need for admit. 23:08 Patient left the ED. rv Signatures: Lorenzo Gray PA PA cp Billeau, Sheri sb2 Jewel Castro, RN RN rv Av Hung jp3
--- NOTE | 2018-01-26 21:39 | EDPHYS ---
Physician Documentation [facility] Name: Ramandeep Gooden Age: 67 yrs Sex: Female : 1950 Arrival Date: 01/26/2018 Time: 18:08 Bed 27 Private MD: Nicho Guerrero H ED Physician Arias Marin HPI: 01/26 19:00 This 67 yrs old Female presents to ER via Ambulatory with complaints of Abd cp Pain > 50 y/o. 19:00 The patient presents with abdominal pain in the left lower quadrant. Associated signs cp and symptoms: Pertinent positives: blood in stools, Pertinent negatives: chest pain, constipation, diarrhea, fever, headache, vomiting. The symptoms are described as waxing/waning. Modifying factors: the symptoms are aggravated by pressure. The patient has been recently seen at the [facility] Emergency Department, yesterday, for similar complaints labs were performed, CT scan was performed, diagnosed with colitis and had f/u with DR Guerrero today. Patient reports she was referred to ED for admission. Historical: - Allergies: 18:44 Sulfa (Sulfonamide Antibiotics); rv 18:44 MILK PRODUCTS; rv - Home Meds: 18:44 levothyroxine oral [Active]; lisinopril Oral [Active]; Paxil Oral [Active]; rv - PMHx: 18:44 Diabetes - NIDDM; Hypertension; Hypothyroidism; Multiple Sclerosis; rv - PSHx: 18:44 Hysterectomy; Cholecystectomy; rv - Immunization history:: Adult Immunizations up to date, Flu vaccine is up to date. - Social history:: Smoking status: Patient/guardian denies using tobacco, never smoked. - Ebola Screening: : Patient negative for fever greater than or equal to 101.5 degrees Fahrenheit, and additional compatible Ebola Virus Disease symptoms Patient denies exposure to infectious person Patient denies travel to an Ebola-affected area in the 21 days before illness onset. ROS: 19:05 Constitutional: Negative for body aches, chills, fever, poor PO intake. cp 19:05 Eyes: Negative for injury, pain, redness, and discharge. cp 19:05 ENT: Negative for drainage from ear(s), ear pain, sore throat, difficulty swallowing, difficulty handling secretions. 19:05 Cardiovascular: Negative for chest pain, edema, palpitations. 19:05 Respiratory: Negative for cough, shortness of breath, wheezing. 19:05 Abdomen/GI: Positive for abdominal pain, nausea, rectal bleeding, Negative for vomiting, diarrhea, constipation. 19:05 Back: Negative for pain at rest, pain with movement, radiated pain. 19:05 : Negative for urinary symptoms, vaginal bleeding. 19:05 Skin: Negative for cellulitis, rash. 19:05 Neuro: Negative for altered mental status, headache, syncope, weakness. 19:05 All other systems are negative. Exam: 19:10 Constitutional: The patient appears in no acute distress, alert, awake, non-toxic, well cp developed, well nourished. 19:10 Head/Face: Normocephalic, atraumatic. cp 19:10 Eyes: Periorbital structures: appear normal, Conjunctiva: normal, no exudate, no injection, Sclera: no appreciated abnormality, Lids and lashes: appear normal, bilaterally. 19:10 ENT: External ear(s): are unremarkable, Nose: is normal, Mouth: Lips: moist, Oral mucosa: pink and intact, moist, Posterior pharynx: is normal, airway is patent, no erythema, no exudate. 19:10 Neck: ROM/movement: is normal, is supple, without pain, no range of motions limitations, no nuchal rigidity. 19:10 Chest/axilla: Inspection: normal, Palpation: is normal, no crepitus, no tenderness. 19:10 Cardiovascular: Rate: normal, Rhythm: regular, Edema: is not appreciated, JVD: is not appreciated. 19:10 Respiratory: the patient does not display signs of respiratory distress, Respirations: normal, no use of accessory muscles, no retractions, no splinting, no tachypnea, labored breathing, is not present, Breath sounds: are clear throughout, no decreased breath sounds, no stridor, no wheezing. 19:10 Abdomen/GI: Inspection: abdomen appears normal, Bowel sounds: active, all quadrants, Palpation: soft, in all quadrants, moderate abdominal tenderness, in the left lower quadrant, rebound tenderness, is not appreciated, voluntary guarding, is not appreciated, involuntary guarding, is not appreciated. 19:10 Back: pain, is absent, ROM is normal. 19:10 Skin: cellulitis, is not appreciated, no rash present. Vital Signs: 18:44 BP 146 / 97; Pulse 89; Resp 16; Pulse Ox 99% on R/A; Weight 55.34 kg (R); rv 18:48 Temp 97.9(O); rv 19:00 BP 133 / 90; Pulse 87; Resp 16; Pulse Ox 97% on R/A; rv 19:30 BP 149 / 94; Pulse 90; Resp 17; Pulse Ox 98% on R/A; rv 20:00 BP 162 / 89; Pulse 92; Resp 15 S; Pulse Ox 98% on R/A; rv 20:30 BP 164 / 99; Pulse 91; Resp 17; Pulse Ox 99% on R/A; rv 21:00 BP 162 / 93; Pulse 94; Resp 16; Pulse Ox 100% on R/A; rv 22:00 BP 158 / 94; Pulse 95; Resp 17; Pulse Ox 100% on R/A; rv 22:13 BP 164 / 89; Pulse 86; Resp 16; Pulse Ox 97% on R/A; rv MDM: 18:35 Patient medically screened. cp 19:00 Differential diagnosis: diverticulitis, pancreatitis, Peptic Ulcer Disease, Perf. cp Duodenal Ulcer, Perf. Gastric Ulcer, Ureterolithiasis, urinary tract infection, colitis. 21:00 Data reviewed: vital signs, nurses notes, old medical records, lab test result(s). 21:25 Counseling: I had a detailed discussion with the patient and/or guardian regarding: the cp historical points, exam findings, and any diagnostic results supporting the discharge/admit diagnosis, lab results, radiology results. 21:25 Response to treatment: the patient's symptoms have markedly improved after treatment. Physician consultation: Casey Adkins MD was called at 21:25, was contacted at 21:25, regarding admission, to the telemetry unit. patient's condition. 01/26 18:46 Order name: Basic Metabolic Panel; Complete Time: 19:40 cp 01/26 19:40 Interpretation: Normal except: GLUC 130. 01/26 18:46 Order name: CBC with Diff; Complete Time: 20:36 cp 01/26 20:36 Interpretation: Normal except: RBC 5.13; HGB 15.7; HCT 47.1; REGINE% 76.3. cp 01/26 18:46 Order name: Creatinine for Radiology; Complete Time: 19:40 cp 01/26 18:46 Order name: Hepatic Function; Complete Time: 19:40 cp 01/26 19:40 Interpretation: Normal except: ALK 130; GLOB 3.9; A/G 1.0. cp / 18:46 Order name: Lipase; Complete Time: 19:40 cp 01/26 18:46 Order name: PT-INR; Complete Time: 20:36 cp 01/26 18:46 Order name: Ptt, Activated; Complete Time: 20:36 cp 01/26 18:48 Order name: Type And Screen; Complete Time: 20:36 cp 01/26 18:48 Order name: Stool Culture 01/26 18:48 Order name: CDIFF 01/26 19:09 Order name: Magnesium; Complete Time: 19:40 EDOK 01/26 19:12 Order name: Urine Dipstick--Ancillary (enter results); Complete Time: 21:10 gm 01/26 21:10 Interpretation: Normal except: UBLD 1+. 01/26 21:47 Order name: Basic Metabolic Panel EDOK 01/26 18:46 Order name: IV Saline Lock; Complete Time: 19:22 cp 01/26 18:46 Order name: Labs collected and sent; Complete Time: 19:22 cp 01/26 21:47 Order name: CONS Physician Consult EDOK 01/26 21:47 Order name: Basic Metabolic Panel EDMS 01/26 21:47 Order name: CBC with Automated Diff EDMS 01/26 21:47 Order name: CBC with Automated Diff EDMS 01/26 21:47 Order name: Lipase EDMS 01/26 21:47 Order name: Lipase EDMS 01/26 21:47 Order name: Liver (Hepatic) Function EDMS 01/26 21:47 Order name: Liver (Hepatic) Function EDMS 01/26 21:49 Order name: Clear Liquid EDMS 01/26 21:53 Order name: ABO/RH no charge EDMS 01/26 18:46 Order name: Urine Dipstick-Ancillary (obtain specimen); Complete Time: 19:23 cp Administered Medications: 19:05 Drug: morphine 2 mg Route: IVP; Site: right antecubital; rv 22:11 Follow up: Response: Pain is decreased rv 19:05 Drug: NS 0.9% 1000 ml Route: IV; Rate: 125 ml/hr; Site: right antecubital; rv 21:20 Drug: metroNIDAZOLE 500 mg Volume: 100 ml; Route: IVPB; Infused Over: 30 mins; Site: rv right antecubital; 21:59 Follow up: IV Status: Completed infusion rv 22:11 Drug: Cipro 400 mg Volume: 200 ml; Route: IVPB; Infused Over: 60 mins; Site: right rv antecubital; Disposition: 01/26/18 21:38 Hospitalization ordered by Casey Adkins for Inpatient Admission. Preliminary diagnosis are Other abdominal pain, Colitis, Gastrointestinal hemorrhage, unspecified. - Bed requested for Telemetry/MedSurg (Inpatient). - Status is Inpatient Admission. rv - Condition is Stable. - Problem is new. - Symptoms have improved. UTI on Admission? No Addendum: 01/30/2018 10:28 Co-signature as Attending Physician, Arias Marin MD. g s Signatures: Dispatcher [employer] EDMS Kalli Marx RN RN fc Lorenzo Gray PA PA cp Arias Marin MD MD Jewel Castro RN RN rv Corrections: (The following items were deleted from the chart) 01/26 19:09 18:49 MAGNESIUM+C.LAB.BRZ ordered. EDMS EDMS 20:36 20:36 Normal except: RBC 5.13; HGB 15.7; HCT 47.1. cp cp 22:27 21:38 Hospitalization Ordered by Casey Adkins MD for Inpatient Admission. Preliminary fc diagnosis is Other abdominal pain. Bed requested for Telemetry/MedSurg (Inpatient). Status is Inpatient Admission. Condition is Stable. Problem is new. Symptoms have improved. UTI on Admission? No. cp 22:28 22:27 01/26/2018 21:38 Hospitalization Ordered by Casey Adkins MD for Inpatient cp Admission. Preliminary diagnosis is Other abdominal pain. Bed requested for Telemetry/MedSurg (Inpatient). Status is Inpatient Admission. Condition is Stable. Problem is new. Symptoms have improved. UTI on Admission? No. fc 23:08 22:28 01/26/2018 21:38 Hospitalization Ordered by Casey Adkins MD for Inpatient rv Admission. Preliminary diagnosis is Other abdominal pain; Colitis; Gastrointestinal hemorrhage, unspecified. Bed requested for Telemetry/MedSurg (Inpatient). Status is Inpatient Admission. Condition is Stable. Problem is new. Symptoms have improved. UTI on Admission? No. cp
[2018-01-26] MEDS ORDERED: MORPHINE 4 MG/ML SYR IV PRN (21:44)
[2018-01-26] MEDS ORDERED: ONDANSETRON 4 MG/2 ML VIAL IV PRN (21:44)
[2018-01-26] MEDS ORDERED: ACETAMINOPHEN 500 MG TAB PO PRN (21:44)
[2018-01-27] MEDS: D5 0.45 NS 1,000 ML IV SCH ×4 (00:31→21:22)
[2018-01-27] MEDS: METRONIDAZOLE 500mg IVPB 500 MG/100 ML BAG IV SCH ×5 (00:52→23:02)
[2018-01-27 01:08] VITALS: BMI 25.2
[2018-01-27 05:11] LABS: Absolute Lymphocytes (CBC) 1.9 K/uL (0.7-4.9); Absolute Monocytes 0.6 K/uL (0.1-1.3); Absolute Neutrophil 6.5 K/uL (1.8-8.0); Basophils % 0.7 % (0-1.3); Eosinophils % 0.7 % (0-4.4); Hematocrit 39.7 % (36.0-45.0); Lymphocytes % 21.4 % (15.3-44.8); MCH 30.9 pg (27.0-35.0); MCV 90.6 fL (80-100); MPV 8.9 fL (7.6-11.3); Monocytes % 6.1 % (3.3-12.3); RBC Red Blood Cell Count 4.38 M/uL (3.86-4.86)
[2018-01-27 05:29] LABS: ALT/SGPT 30 U/L (12-78); AST/SGOT 15 U/L (15-37); Alkaline Phosphatase 97 U/L (45-117); BUN Blood Urea Nitrogen 9 mg/dL (7-18); Bicarbonate 25 mmol/L (21-32); Bilirubin Direct 0.1 mg/dL (0-0.2); Bilirubin Total 0.4 mg/dL (0.2-1.0); Glucose Level 120 mg/dL (74-106); Lipase 184 U/L (73-393); Potassium 3.9 mmol/L (3.5-5.1); Protein, Total 6.1 g/dL (6.4-8.2); Sodium Level 141 mmol/L (136-145)
[2018-01-27] MEDS: CIPROFLOXACIN 400mg IV 400 MG/200 ML BAG IV SCH ×2 (09:47→21:22)
[2018-01-27] MEDS ORDERED: SODIUM CHLORIDE 0.9% 10ML INJ IV PRN (16:12)
[2018-01-28 00:30] VITALS: O2SAT 96
[2018-01-28] MEDS: D5 0.45 NS 1,000 ML IV SCH ×2 (04:00→12:01)
[2018-01-28 05:24] LABS: Absolute Lymphocytes (CBC) 1.8 K/uL (0.7-4.9); Absolute Monocytes 0.5 K/uL (0.1-1.3); Absolute Neutrophil 3.8 K/uL (1.8-8.0); Basophils % 1.1 % (0-1.3); Eosinophils % 2.8 % (0-4.4); Hematocrit 37.1 % (36.0-45.0); Lymphocytes % 27.8 % (15.3-44.8); MCH 30.5 pg (27.0-35.0); MCV 90.9 fL (80-100); MPV 9.1 fL (7.6-11.3); Monocytes % 8.3 % (3.3-12.3); RBC Red Blood Cell Count 4.08 M/uL (3.86-4.86)
[2018-01-28 05:41] LABS: BUN Blood Urea Nitrogen 10 mg/dL (7-18); Bicarbonate 26 mmol/L (21-32); Glucose Level 122 mg/dL (74-106); Potassium 3.6 mmol/L (3.5-5.1); Sodium Level 143 mmol/L (136-145)
[2018-01-28] MEDS: METRONIDAZOLE 500mg IVPB 500 MG/100 ML BAG IV SCH ×2 (06:34→12:00)
[2018-01-28] MEDS: CIPROFLOXACIN 400mg IV 400 MG/200 ML BAG IV SCH (08:01)
[2018-01-28] MEDS ORDERED: PANTOPRAZOLE 40 MG INJ IVP SCH (09:00)
[2018-01-28 12:25] VITALS: BP 161/77; TEMP 97.4
--- NOTE | 2018-01-28 17:14 | PN ---
Date of Progress Note: 01/27/2018 The patient states she feels significantly better today. She has had some gas formation, mainly lowe r abdomen. She states when she passes the gas, there is some small amount of bleeding. Her H and H; however, seem stable. Abdominal examination is within normal limits. Therefore, we will advance he r diet and if tolerated, probably go home in the morning. HR/MODL Voice ID: [id number] Report ID: [id number]
--- NOTE | 2018-01-29 03:07 | HP ---
Date of Admission: 01/26/2018 Chief Complaint: Abdominal pain. History Of Present Illness: Patient was seen in the emergency room the day before this admission. A t that time, she had some abdominal pain. A CT scan revealed possibility of colitis. She was then s een by her yard coupler and she was still having symptoms. She was sent back to the ER and was therefore admitted for more intensive care. Past Medical History: Patient has numerous medical problems over the years, most predominant of whic h is MS, which has been under fair control, she was seen by Neurology. She had some GI problems in t he past as well. Family History: Noncontributory. Social History: Nonsmoker, nondrinker. Physical Examination: General: Patient is an elderly female, in no acute distress. Vital Signs: Stable vital signs. HEENT: Normocephalic. Pupils equal and reactive to light and accommodation. Fundi negative. ENT ne gative. Neck: Trachea midline. Thyroid not palpable. Chest: Clear to P and A. Cardiovascular: PMI in midclavicular line. Heart sounds normal. Peripheral pulses present and equa l bilaterally. Abdomen: No organomegaly. Bowel sounds hyperactive. Minimal tenderness in low abnormal area. No g uarding, rebound, tenderness, or rigidity. Extremities: Good tone and movement bilaterally. Reflexes physiologic. Mildly dehydrated. Rectal: Deferred. Pelvic: Deferred. Impression: Acute colitis, multiple sclerosis by history. Plan: Patient will be admitted, placed on IV antibiotics, IV fluids, dietary control, GI consult jesenia l also be obtained. HR/MODL Voice ID: [id number]
--- NOTE | 2018-01-30 09:17 | PN ---
Date of Progress Note: 01/28/2018 The patient decided to leave the hospital. She did not sign a form. She stated that she felt much b marco and had lost to do and she was leaving, which she then proceeded to do, helped by shlomo barnett nursing staff. HR/CRISTELA Voice ID: [id number] Report ID: [id number]
== END 2018-01-28 14:00 | disposition left against medical advice (07) ==
LOC: ER 18:07 → ERHOLD 21:44 → INTOOBSV 21:44 → 2ND 23:03
PROVIDERS: ADMIT Family Medicine; ATTEND Family Medicine
DX: K52.9 Noninfective gastroenteritis and colitis, unspecified (principal); G35 Multiple sclerosis
CPT/HCPCS: 36415; 74177; 80048; 80076; 81003; 83690; 83735; 85025; 85610; 85730; 86850; 86900; 86901; 96365; 96375; 99284; 99285; C9113; G0378; J0744; J2270; J2405; J7030; Q9967

== ENCOUNTER 2020-02-04 16:27 | Emergency (ER) | payer BC ==
--- OUTSIDE RECORDS SUMMARY | 2020-02-04 16:40 | XMS REPORT | Summary of Care ---
:1950 Author Organization [facility] Address [address] [place] [address] Care Team Providers Name Role Phone Casey Adkins Primary Care Provider Reason for Visit Reason Comments POST-OP Encounter Details Date Type Department Care Team Description 11/08/2019 Office Visit [facility] Maulik Ugarte, Donna ophakia of left [place] JAQUEZ eye (Primary Dx) [facility]. [address] [place] [address] [phone] Allergies Active Allergy Reactions Severity Noted Date Comments Sulfa (Sulfonamide Antibiotics) Rash 7 documented as of this encounter (statuses as of 11/08/2019) Medications Medication Sig Dispensed Refills Start Date End Date Status LISINOPRIL ORAL Take by mouth. 0 Active levothyroxine 50 mcg Take 50 mcg by 0 08/12/2016 Active tablet mouth daily. glycopyrrolate 1 mg TAKE 1 TO 2 0 08/16/2016 Active tablet TABLETS BY MOUTH 2-3 TIMES A DAY glycopyrrolate 2 mg Take 2 mg by 1 08/17/2016 Active tablet mouth daily. carvedilol 25 mg Take 25 mg by 0 08/12/2016 Active tablet mouth daily. glatiramer (COPAXONE) inject 40 mg 36 Syringe 3 10/13/2018 Active 40 mg/mL Syrg under the skin every other day. No more than 3 times a week. bimatoprost (LUMIGAN) Place 1 Drop in 0 Active 0.01 % ophthalmic each eye at drops bedtime. carvediloL (COREG) 25 0 Active mg tablet omeprazole 40 mg 0 05/23/2019 Ac tive capsule mometasone (NASONEX) spray 2 spray by 0 07/09/2015 Active 50 mcg/actuation nasal intranasal route spray every day in each nostril fexofenadine 60 mg 0 A ctive tablet PAROXETINE 20 mg TAKE 1 TABLET BY 30 tablet 3 09/25/2019 Active tablet MOUTH EVERY DAY moxifloxacin 0.5 % Place 1 Drop in 3 mL 0 10/04/2019 Active ophthalmic left eye 4 (four) dropsIndications: times daily. Nuclear senile cataract of both eyes prednisoLONE acetate 1 Place 1 Drop in 5 mL 1 10/04/2019 Active % ophthalmic left eye 4 (four) suspension times daily. dropsIndications: Nuclear senile cataract of both eyes ketorolac 0.5 % Place 1 Drop in 3 mL 0 10/04/2019 Active ophthalmic left eye 4 (four) solutionIndications: times daily. Nuclear senile cataract of both eyes levoFLOXacin 500 mg Take 500 mg by 0 Active tablet mouth every 24 (twenty-four) hours. sacubitriL-valsartan Take 1 tablet by 0 Active (ENTRESTO) 24-26 mg mouth 2 (two) tablet times daily. documented as of this encounter (statuses as of 11/08/2019) Active Problems Problem Noted Date Nuclear senile cataract of both eyes 04/20/2019 Overview: Added automatically from request for elkin campbell [id number] documented as of this encounter (statuses as of 11/08/2019) Social History Tobacco Use Types Packs/Day Years Used Date Former Smoker Smokeless Tobacco: Never Used Alcohol Use Drinks/Week oz/Week Comments No Sex Assigned at Date Recorded Not on file COVID-19 Exposure Response Date Recorded In the last month, have you been in contact with No / Unsure 11/06/2019 10:33 AM CDT someone who was confirmed or suspected to have Coronavirus / COVID-19? documented as of this encounter Last Filed Vital Signs Not on filedocumented in this encounter Patient Instructions Patient InstructionsMaulik Ugarte MD - 11/08/2019 10:00 AM CDTPt educated and instructed on the use of drops. Pt to continue drops as prescribed. Pt to call the office and/or check in the ED if decreased vision, pain or other vision related symptoms arise. Otherwise pt to return in 1 week documented in this encounter Progress Notes Maulik Ugarte MD - 11/08/2019 10:00 AM CDT Cc: POST-OP Ramandeep Beckman is a 69 year old female. HPI Past Medical History: Diagnosis Date Cataract Glaucoma Hypertension Hypothyroidism Multiple sclerosis Review of Systems Reviewed ROS done by the remediation technician during this encounter and there are no changes. Assessment ICD-10-CM ICD-9-CM 1. Pseudophakia of left eye Z96.1 V43.1 Plan Ramandeep was seen today for post-op. Diagnoses and all orders for this visit: Pseudophakia of left eye S/p CEIOL OS POD1. Looks excellent. Start with Vigamox, PF and Ketorolac QID OS. RD precautions Review in 1 week for IOP check documented in this encounter Plan of Treatment Date Type Specialty Care Team Description 11/19/2019 Office Visit Ophthalmology Leah Ugarte MD [address] [place] [address] 77 [phone] 11/30/2019 Office Visit Obstetrics & Gynecology Jeffrey Mata MD [address] [place] [address] [phone] Health Maintenance Due Date Last Done Comments HEPATITIS C (HCV) SCREEN 1950 DTaP,Tdap,and Td Vaccines (1 - Tdap) 11/05/1967 Breast Cancer Screening (MAMMOGRAM) 1988 COLON CANCER SCREENING ANNUAL FIT/FOBT 1998 COLON CANCER SCREENING FIT DNA EVERY 3 YEARS 1998 COLON CANCER SCREENING SIGMOIDOSCOPY EVERY 5 YEARS 1998 COLONOSCOPY 1998 Colorectal Cancer Screening 1998 Zoster Recombinant Vaccine (SHINGRIX) (1 of 2) 1998 LUNG CANCER SCREEN: Recommended for age 55-80 with 30 11/05/2003 + pack year history Medicare Wellness Visit 2013 Osteoporosis Screening 2013 PNEUMOCOCCAL VACCINES 65+ (1 of 1 - PPSV23) 2013 INFLUENZA VACCINE (#1) 2019 Depression Screening 11/06/2020 11/07/2019 documented as of this encounter Implants Implanted Type Area Vegetable Tester Device Shelf Model / Serial Identifier Expiration / Lot Date Lens, Ab #[id number] - [id number] LENS Right: Ab 01/20/2023 [id number] / Implanted: Qty: 1 on 09/26/2019 by Maulik William MD at [facility] Eye [id number] / 0000 Lens, Ab #[id number] - [id number] LENS Left: Eye Ab 11/21/2023 [id number] / Implanted: Qty: 1 on 11/07/2019 by Maulik William MD at [facility] [id number] / 0000 documented as of this encounter Results Not on filedocumented in this encounter Visit Diagnoses Diagnosis Pseudophakia of left eye - Primary Lens replaced by other means documented in this encounter Insurance Payer Benefit Plan Subscriber ID Effective Phone Address Typ e / Group Dates [facility] [id number] 2016-Prese [phone] [address] PPO/POS - OUT OF 87 [id number] [place] [address] MEDICARE MEDICARE PART [id number] 1996-Pres [phone] [address] X Medicare A & B ent 82 [id number] [place] [phone] (Work) documented as of this encounter
--- OUTSIDE RECORDS SUMMARY | 2020-02-04 16:40 | XMS REPORT | Summary of Care ---
:1950 Author Organization [facility] Address [address] [place] [address] Care Team Providers Name Role Phone Casey Adkins Primary Care Provider Reason for Visit Reason Comments POST-OP Encounter Details Date Type Department Care Team Description 11/08/2019 Office Visit [facility] Eye Maulik Ugarte, Donna ophakia of left [place] JAQUEZ eye (Primary Dx) [address] [facility]. [address] [place] [address] 77 [phone] Allergies Active Allergy Reactions Severity Noted Date [...] 04/20/2019 Overview: Added automatically from request for elikn campbell [id number] documented as of this encounter (statuses as [...] of Systems Reviewed ROS done by the registered pharmacy technician during this encounter and there are [...] 11/19/2019 Office Visit Ophthalmology Leah Ugarte MD [address] [place] [address] [phone] 11/30/2019 Office Visit Obstetrics & Gynecology Jeffrey Mata MD [address] [place] [address] 77 [phone] Health Maintenance Due Date Last [...] of this encounter Implants Implanted Type Area Paediatrician Device Shelf Model / Serial Identifier Expiration / Lot Date Lens, Ab #[id number] - [id number] LENS Right: Ab 01/20/2023 [id number] / Implanted: Qty: 1 on 09/26/2019 by Maulik William MD at [facility] Eye [id number] / 0000 Lens, Ab #[id number] - [id number] LENS Left: Eye Ab 11/21/2023 SN60WF / Implanted: Qty: 1 on 11/07/2019 by Maulik William MD at [facility] [id number] / 0000 documented as of this encounter Results Not on filedocumented in this encounter Visit Diagnoses Diagnosis Pseudophakia of left eye - Primary Lens replaced by other means documented in this encounter Insurance Payer Benefit Plan Subscriber ID Effective Phone Address Typ e / Group Dates [facility] [id number] 2016-Prese [phone] [address] PPO/POS - OUT OF 87 [id number] [place] [address] MEDICARE MEDICARE PART [id number] 1996-Pres [phone] [address] A[address] X Medicare A & B ent 82 [id number] [place] [phone] (Work) documented as of this encounter
--- OUTSIDE RECORDS SUMMARY | 2020-02-04 16:40 | XMS REPORT | Clinical Summary ---
:1950 Author Organization [facility] Address [address] [place] [address] Care Team Providers Name Role Phone Casey Adkins MD Primary Care Provider Allergies Active Allergy Reactions Severity Noted Date Comments Paroxetine 10/26/2018 Sulfa (Sulfonamide Antibiotics) 6 Medications Medication Sig Dispensed Refills Start Date End Date Status COPAXONE 40 mg/mL Inject 1 mL 3 0 06/17/2015 Active syringe times a week by subcutaneous route levothyroxine Take 1 tablet by 30 tablet 5 07/09/2015 Active (SYNTHROID, mouth once daily LEVOTHROID) 50 MCG on an empty tabletIndications: stomach Acquired hypothyroidism carvedilol (COREG) 25 Take 1 tablet (25 180 tablet 3 6 Active MG tabletIndications: mg total) by mouth Essential 2 (two) times a hypertension day with meals. lisinopril Take 1 tablet (20 180 tablet 3 07/09/2015 Active (PRINIVIL,ZESTRIL) 20 mg total) by mouth MG tabletIndications: 2 (two) times a Essential day. hypertension PARoxetine (PAXIL) 20 Take 1 tablet(s) 90 tablet 3 07/09/2015 Active MG tabletIndications: every day by oral Depression route. mometasone (NASONEX) [place] 2 spray(s) 51 g 3 07/09/2015 Active 50 mcg/actuation every day by nasal intranasal route. sprayIndications: Allergic rhinitis, unspecified allergic rhinitis type ondansetron (ZOFRAN) Take 4 mg by mouth 0 Active 4 MG tablet every 8 (eight) hours as needed for nausea or vomiting. CETIRIZINE HCL Take 1 tablet by 0 Active (ALLERGY RELIEF, mouth daily. CETIRIZINE, ORAL) esomeprazole (NexIUM) 0 11/12/2017 Active 40 MG capsule simethicone (GAS-X Take 1 tablet by 0 Active EXTRA STRENGTH ORAL) mouth daily. Active Problems Not on file Surgical History Surgery Date Site/Laterality Comments APPENDECTOMY HYSTERECTOMY COLONOSCOPY CHOLECYSTECTOMY Medical History Medical History Date Comments Depression Hypertension Pre-diabetes Hypothyroid Multiple sclerosis (HCC) Anxiety Family History Medical History Relation Name Comments [...] Assigned at Date Recorded Not on file Last Filed Vital Signs Not on file Plan of Treatment Health Maintenance Due Date Last Done Comments BREAST CANCER SCREENING 1998 COLONOSCOPY SCREENING 1998 SHINGLES VACCINES (#1) 1998 65+ PNEUMOCOCCAL VACCINE (1 of 1 - PPSV23) 2013 INFLUENZA VACCINE 09/22/2019 Results Not on fileafter 02/03/2019 Insurance Payer Benefit Plan / Subscriber ID Effective Dates Phone Addre ss Type Group BCBS BCBS CHOICE [id number] 2016-Present PPO PPO/FEDERAL EMPL PPO MEDICARE MEDICARE PART A [id number] 1996-Present [place], [place] Medicare AND B
--- OUTSIDE RECORDS SUMMARY | 2020-02-04 16:40 | XMS REPORT | Summary of Care ---
:1950 Author Organization [facility] - Health Address [address] [place] [address] Care Team Providers Name Role Phone Casey Adkins Primary Care Provider Encounter Details Date Type Department Care Team Description 11/07/2019 Orders Only [facility] Doctor Unassigned, No 301 [facility] [address] [address] [place] [address] Allergies Active Allergy Reactions Severity Noted Date Comments Sulfa (Sulfonamide Antibiotics) Rash 7 documented as of this encounter (statuses as of 11/14/2019) Medications Medication Sig Dispensed Refills Start Date [...] as of this encounter (statuses as of 11/14/2019) Active Problems Problem Noted Date Nuclear senile cataract of both eyes 04/20/2019 Overview: Added automatically from request for elkin campbell [id number] documented as of this encounter (statuses as of 11/14/2019) Social History Tobacco Use Types Packs/Day Years [...] Signs Not on filedocumented in this encounter Plan of Treatment Date Type Specialty Care Team Description 11/19/2019 Office Visit Ophthalmology Leah Ugarte MD [address] [place] [address] 77 555 11/30/2019 Office Visit Obstetrics & Gynecology Jeffrey Mata MD [address] [place] [address] 77 555 Health Maintenance Due Date Last [...] of this encounter Implants Implanted Type Area Whizzer Device Shelf Model / Serial Identifier Expiration / Lot Date Lens, Ab #Sn60wf - [id number] LENS Right: Ab 01/20/2023 SN60WF / Implanted: Qty: 1 on 09/26/2019 by Maulik William MD at [facility] Eye [id number] / 0000 Lens, Ab #Sn60wf - [id number] LENS Left: Eye Ab 11/21/2023 SN60WF / Implanted: Qty: 1 on 11/07/2019 by Maulik William MD at [facility] [id number] / 0000 documented as of this encounter Procedures Procedure Name Priority Date/Time Associated Diagnosis Comme DAY SURGERY - [place] Routine 11/07/2019 12:01 AM CDT documented in this encounter Results Not on filedocumented in this encounter Additional Health Concerns Infection Onset Date Last Indicated Resolved Time COVID-19 Rule Out 11/07/2019 11/07/2019 11/07/2019 10: 32 AM CDT documented as of this encounter Insurance Payer Benefit Plan Subscriber ID Effective Phone Address Typ e / Group Dates [facility] [id number] 2016-Tracie [phone] [address] PPO/POS - OUT OF 87 [id number] [place] [address] MEDICARE MEDICARE PART [id number] 1996-Pres [phone] [address] A[address]NTH X Medicare A & B [facility] [id number] [place] [phone] documented as of this encounter
--- OUTSIDE RECORDS SUMMARY | 2020-02-04 16:40 | XMS REPORT | Clinical Summary ---
:1950 Author Organization [facility] Address [address] [place] [address] Care Team Providers Name Role Phone Unavailable Primary Care Provider Unavailable Allergies Active Allergy Reactions Severity Noted Date Comments Sulfa (Sulfonamide Antibiotics) Hives 6 Medications Medication Sig Dispensed Refills Start Date End Date Status lisinopril Take 20 mg by 0 Activ e (PRINIVIL,ZESTRIL) 20 mouth daily. MG tablet carvedilol (COREG) 12.5 Take 12.5 mg by 0 Active MG tablet mouth 2 (two) times daily with breakfast and dinner. glycopyrrolate Take 2 mg by 0 Ac tive (ROBINUL) 2 MG tablet mouth 3 (three) times daily. glatiramer (COPAXONE) Inject 0 Active 40 mg/mL Syrg subcutaneously. Active Problems Not on file Social History Tobacco Use Types Packs/Day Years Used Date Former Smoker Quit: 09/17/18 78 Alcohol Use Drinks/Week oz/Week Comments No Sex Assigned at Date Recorded Not on file Last Filed Vital Signs Not on file Plan of Treatment Not on file Results Not on fileafter 02/03/2019 Insurance Payer Benefit Plan / Subscriber ID Effective Dates Phone Addre ss Type Group AETNA - MGD AETNA HMO POS [id number] 2014-Present HMO/POS CARE QPOS
--- OUTSIDE RECORDS SUMMARY | 2020-02-04 16:40 | XMS REPORT | Summary of Care ---
:1950 Author Organization [facility] Address [address] [place] [address] Care Team Providers Name Role Phone Casey Adkins Primary Care Provider Reason for Visit Reason Onset Date Comments POST-OP 11/07/2019 Encounter Details Date Type Department Care Team Description 11/07/2019 Nurse Triage [facility] Kathya Templeton, POST-OP 301 [facility] [place] [address] 301 [facility] [phone] [place] [address] Allergies Active Allergy Reactions Severity Noted Date Comments Sulfa (Sulfonamide Antibiotics) Rash 7 documented as of this encounter (statuses as of 11/07/2019) Medications Medication Sig Dispensed Refills Start Date [...] as of this encounter (statuses as of 11/07/2019) Active Problems Problem Noted Date Nuclear senile cataract of both eyes 04/20/2019 Overview: Added automatically from request for elkin campbell [id number] documented as of this encounter (statuses as of 11/07/2019) Social History Tobacco Use Types Packs/Day Years [...] Signs Not on filedocumented in this encounter Miscellaneous Notes Telephone Encounter - Kathya Templeton RN - 11/07/2019 8:36 PM JOSE RAFAELTSmarlene Beckman is a 69 year old female [facility] Center Nurse Note: Patient is calling post cataract surgery today with concern of pain 7-8/10, constant watering of the eye, and the feeling that something is in the eye. Pain is unrelieved by Ibuprofen. Advised that I will call the wire preparation machine tender provider. 2049: Page to ophthalmology wire preparation machine tender 2056: Call returned by Dr. Acosta, report of above information given, he will contact patient to discuss symptoms and recommendations. Kathya Templeton RN Triage Nurse Reason for Disposition [1] Caller has URGENT question AND [2] triager unable to answer question Protocols used: POST-OP SYMPTOMS AND [id number] Telephone Encounter - Kathya Templeton RN - 11/07/2019 8:36 PM CDTAdult Triage Assessment Last Clinic Visit: Today cataract surgery Primary Symptom: pain, "I feel like something is in it" Onset / Duration: Since discharge Location / Description: left eye Pain / Severity: 7-8/10 Associated Symptoms: Constant watering "dripping" Fever / Method: None Hydration: Drinking and urinating as normal Treatment so far: Motrin 400 mg 1700 Effect on ADL's: Very painful LMP: NA Pre-existing condition / Immunocompromised: None elephone Encounter - Kathya Templeton RN - 11/07/2019 8:36 PM CDTRegarding: left eye surgery today, feels like there's something still in her eye and pain with everyblink ----- Message from Amanda Ordonez sent at 11/07/2019 8:35 PM CDT ----- Ramandeep Becmkan is a 69 year old female documented in this encounter Plan of Treatment Date Type Specialty Care Team Description 11/08/2019 Office Visit Ophthalmology Leah Ugarte MD [address] [place] [address] 77 555 11/19/2019 Office Visit Ophthalmology Leah Ugarte MD [address] [place] [address] 77 555 Health Maintenance Due Date Last [...] of this encounter Implants Implanted Type Area Conduit Worker Device Shelf Model / Serial Identifier Expiration / Lot Date Lens, Ab #Sn60wf - [id number] LENS Right: Ab 01/20/2023 SN60WF / Implanted: Qty: 1 on 09/26/2019 by Maulik William MD at [facility] Eye [id number] / 0000 Lens, Ab #Sn60wf - [id number] LENS Left: Eye Ab 11/21/2023 SN60WF / Implanted: Qty: 1 on 11/07/2019 by Maulik William MD at [facility] [id number] / 0000 documented as of this encounter Results Not on filedocumented in this encounter Additional Health Concerns Infection Onset Date Last Indicated Resolved Time COVID-19 Rule Out 11/07/2019 11/07/2019 11/07/2019 10: 32 AM CDT documented as of this encounter Insurance Payer Benefit Plan Subscriber ID Effective Phone Address Typ e / Group Dates [facility] [id number] 2016-Tracie [phone] [address] PPO/POS - OUT OF nt 87 [id number] [place] [address] MEDICARE MEDICARE PART [id number] 1996-Pres [phone] P[address] ANANTH X Medicare A & B ent 82 [id number] [place] [address] documented as of this encounter
--- OUTSIDE RECORDS SUMMARY | 2020-02-04 16:40 | XMS REPORT | Continuity of Care Document ---
:1950 Author Organization [facility] t Address [address] [place] [address] Care Team Providers Name Role Phone Lucille JAQUEZ Primary Care Physician Alesia DNP, SPOT WELDER LINE, CNP-BC, N Attending Clinician Rola Robbins Attending Clinician Unavailable Problems This patient has no known problems. Allergies, Adverse Reactions, Alerts Allergy Allergy Status Severity Reaction(s) Onset Inactive Treating Comm ents Source Name Type Date Date Clinician Paroxeti Propensi Active Deeto n ne ty to 9-05 Methodi adverse 00:00: st reaction 00 s to drug Sulfa Drug Active Hives [facility] (Sulfona Allergy 7-28 [facility] 00:[facility]: Medical Antibiot 00 Center ics) Sulfa Propensi Active [place] (Sulfona ty to 5-18 Methodi mide adverse 00:00: st Antibiot reaction 00 ics) s to drug Family History Family Member Diagnosis Comments Start Date Stop Date Source Natural brother No Known Problems [facility] Natural father No Known Problems [place] [facility] Maternal aunt No Known Problems [place] [employer] Maternal grandfather No Known Problems [place] [employer] Maternal grandmother No Known Problems [place] [employer] Maternal uncle No Known Problems [place] stoana [employer] Natural mother No Known Problems [place] stoana [facility] Paternal aunt No Known Problems [place] [employer] Paternal grandfather No Known Problems [place] [employer] Paternal grandmother No Known Problems [place] [employer] Paternal uncle No Known Problems [place] Bealist Natural sister No Known Problems [place] coronado [facility] Social History Social Habit Start Date Stop Date Quantity Comments Source Sex Assigned At [facility] ethodist Tobacco use and 2018-10-26 2018-10-26 Never used [facility] ethodist exposure 00:00:00 00:00:00 Alcohol intake 2018-10-26 2018-10-26 Current [facility] thodist 00:00:00 00:00:00 non-drinker of alcohol (finding) History of 1977-09-[address] [facility] - tobacco use 00:00:00 Medical Jovanni r Smoking Status Start Date Stop Date Source Never smoker [place] Rachel t Former smoker 2015-09-19 00:00:00 2015-09-19 00:00:[address] [facility] Medications Ordered Filled Start Stop Current Ordering Indication Dosage Frequency Signature Comments Components Source Medication Medication Date Date Medication? Clinician (SIG) Name Name sean 2017-02 Yes 1{tbl} QD Take 1 [place] (GAS-X 0-03 tablet by [facility] EXTRA 13:34: mouth st STRENGTH 50 daily. ORAL) ondansetron 2017-02 Yes 4mg Q8H Take 4 mg [place] (ZOFRAN) 4 0-03 by mouth Metho di MG tablet 13:32: every 8 st 14 (eight) hours as needed for nausea or vomiting. CETIRIZINE 2017-02 Yes 1{tbl} QD Take 1 [place] st[place] HCL 0-03 tablet by Methodi (ALLERGY 13:32: mouth st RELIEF, 14 daily. CETIRIZINE, ORAL) esomeprazol Yes [place] (NexIUM) 9-22 [facility] 40 MG 00:00: st capsule 00 lisinopril Yes 20mg QD Take [address] (PRINIVIL,Z 7-29 by mouth Luke s - ESTRIL) 20 09:14: daily. Medic al MG tablet 23 Center carvedilol Yes 12.5mg Take 12.[address] (COREG) 7-29 mg by [facility] - 12.5 MG 09:14: mouth 2 Medical tablet 23 (two) Center times daily with breakfast and dinner. glycopyrrol Yes 2mg Q.[id number] Take [address] ate 09-18 [id number] by mouth 3 Yaa es - (ROBINUL) 2 09:14: 3D (three) Med ical MG tablet 23 times Center daily. glatiramer Yes Inject [facility] t (COPAXONE) 09-18 subcutaneo Yaa es - 40 mg/mL 09:14: usly. Medical Syrg 23 Center levothyroxi Yes Acquired Take 1 [place] ne 5-18 hypothyroid tablet by Met gregorio (SYNTHROID, 00:00: ism mouth once st LEVOTHROID) 00 daily on 50 MCG an empty tablet stomach carvedilol Yes Essential 25mg Q.5D Take 1 [place] (COREG) 25 5-18 hypertensio tablet (25 Methodi MG tablet 00:00: n mg total) st 00 by mouth 2 (two) times a day with meals. lisinopril Yes Essential 20mg Q.5D Take 1 [place] (PRINIVIL,Z 5-18 hypertensio tablet (20 Methodi ESTRIL) 20 00:00: n mg total) st MG tablet 00 by mouth 2 (two) times a day. PARoxetine Yes Depression Take 1 [place] (PAXIL) 20 5-18 tablet(s) Meth david MG tablet 00:00: every day st 00 by oral route. mometasone Yes Allergic [place] 2 [place] (NASONEX) 5-18 rhinitis, spray(s) M ethodi 50 00:00: unspecified every day s t mcg/actuati 00 allergic by on nasal rhinitis intranasal spray type route. COPAXONE 40 Yes Inject 1 [place] mg/mL 4-26 mL 3 times [facility] syringe 00:00: a week by st 00 subcutaneo us route Procedures This patient has no known procedures. Plan of Care Planned Activity Planned Date Details Comments Source Future Scheduled 2019-09-22 INFLUENZA VACCINE [place] [facility] 00:00:00 [code = INFLUENZA VACCINE] Future Scheduled 2013 65+ PNEUMOCOCCAL [place] [facility] 00:00:00 VACCINE (1 of 1 - PPSV23) [code = 65+ PNEUMOCOCCAL VACCINE (1 of 1 - PPSV23)] Future Scheduled 1998 BREAST CANCER [facility] thodist Test 00:00:00 SCREENING [code = BREAST CANCER SCREENING] Future Scheduled 1998 COLONOSCOPY SCREENING [facility] 00:00:00 [code = COLONOSCOPY SCREENING] Future Scheduled 1998 SHINGLES VACCINES (#1) [facility] 00:00:00 [code = SHINGLES VACCINES (#1)] Encounters Start End Encounter Admission Attending Care Care Encounter Source Date/Time Date/Time Type Type Clinicians Facility Department ID 2020-01-07 2020-01-07 Office Alesia [facility] [id number] 13:33:39 15:30:37 Visit [facility] [id number] [place] [id number] [place] [address] [id number] [place] 394018 Office Building 2018-01-10 2018-01-10 Outpatient PALLAVI Robbins [id number] [facility] 09:13:00 09:13:00 Nilay Hodge 2017-04-12 2017-04-12 Outpatient PALLAVI Robbins [id number] [facility] 13:46:00 13:46:00 Nilay Hodge 2016-07-30 2016-07-30 Outpatient PALLAVI Robbins [id number] [facility] 13:19:00 13:19:00 Nilay Hodge Results This patient has no known results.
--- OUTSIDE RECORDS SUMMARY | 2020-02-04 16:41 | XMS REPORT | Summary of Care ---
:1950 Author Organization [facility] - Health Address [address] [place] [address] Care Team Providers Name Role Phone Casey Adkins Primary Care Provider Encounter Details Date Type Department Care Team Description 12/03/2019 Orders Only [facility] Doctor Unassigned, No 301 [facility] [place] [address] [address] [place] [address] Allergies Active Allergy Reactions Severity Noted Date Comments Sulfa (Sulfonamide Antibiotics) Rash 7 documented as of this encounter (statuses as of 12/03/2019) Medications Medication Sig Dispensed Refills Start Date [...] as of this encounter (statuses as of 12/03/2019) Active Problems Problem Noted Date Nuclear senile cataract of both eyes 04/20/2019 Overview: Added automatically from request for elkin campbell [id number] documented as of this encounter (statuses as of 12/03/2019) Social History Tobacco Use Types Packs/Day Years Used Date Former Smoker Smokeless Tobacco: Never Used Alcohol Use Drinks/Week oz/Week Comments No Sex Assigned at Date Recorded Not on file COVID-19 Exposure Response Date Recorded In the last month, have you been in contact with Yes 11/20/2019 11:18 AM CDT someone who was confirmed or suspected to have Coronavirus / COVID-19? documented as of this encounter Last Filed Vital Signs Not on filedocumented in this encounter Plan of Treatment Date Type Specialty Care Team Description 12/28/2019 Office Visit Obstetrics & Gynecology Robert Dumas DNP, MICHAEL, JARED -BC [address] [place] [address] 01/04/2020 Office Visit Obstetrics & Gynecology Robert Dumas DNP, MICHAEL, JARED -BC [address] [place] [phone] Health Maintenance Due Date Last Done Comments [...] of this encounter Implants Implanted Type Area Bus Driver School Device Shelf Model / Serial Identifier Expiration / Lot Date Lens, Ab #Sn60wf - [id number] LENS Right: Ab 01/20/2023 SN60WF / Implanted: Qty: 1 on 09/26/2019 by Maulik William MD at [facility] Eye [id number] / 0000 Lens, Ab #Sn60wf - [id number] LENS Left: Eye Ab 11/21/2023 SN60WF / Implanted: Qty: 1 on 11/07/2019 by Maulik William MD at [facility] [id number] / 0000 documented as of this encounter Procedures Procedure Name Priority Date/Time Associated Diagnosis Comme nts EXTERNAL PROVIDER Routine 12/03/2019 12:01 AM CDT RECORDS documented in this encounter Results Not on filedocumented in this encounter Insurance Payer Benefit Plan Subscriber ID Effective Phone Address Typ e / Group Dates [facility] [id number] 2016-Prese [phone] [address] PPO/POS - OUT OF nt 87 [id number] [place] [address] MEDICARE MEDICARE PART [id number] 1996-Pres [phone] P[address] O[address] ANANTH X Medicare A & B ent 82 [id number] [place] [address] documented as of this encounter
--- OUTSIDE RECORDS SUMMARY | 2020-02-04 16:41 | XMS REPORT | Summary of Care ---
:1950 Author Organization [facility] - Health Address [address] [place] [address] Care Team Providers Name Role Phone Casey Adkins Primary Care Provider Encounter Details Date Type Department Care Team Description 11/20/2019 Letter (Out) [facility] [employer] Message s Doctor Unassigned, No 301 [facility] [place] [place] [address] 301 [facility] [phone] [place] [address] Allergies Active Allergy Reactions Severity Noted Date Comments Sulfa (Sulfonamide Antibiotics) Rash 7 documented as of this encounter (statuses as of 11/20/2019) Medications Medication Sig Dispensed Refills Start Date [...] as of this encounter (statuses as of 11/20/2019) Active Problems Problem Noted Date Nuclear senile cataract of both eyes 04/20/2019 Overview: Added automatically from request for elkin campbell [id number] documented as of this encounter (statuses as of 11/20/2019) Social History Tobacco Use Types Packs/Day Years [...] Treatment Date Type Specialty Care Team Description 11/20/2019 Laboratory Only [facility] Lab, Adc Americo Pob I 11/30/2019 Office Visit Obstetrics & Gynecology Jeffrey Mata MD [address] [place] [address] 555 Health Maintenance Due Date Last Done [...] of this encounter Implants Implanted Type Area Mainframe Developer Device Shelf Model / Serial Identifier Expiration / Lot Date Lens, Ab #Sn60wf - [id number] LENS Right: Ab 01/20/2023 SN60WF / Implanted: Qty: 1 on 09/26/2019 by Maulik William MD at [facility] Eye [id number] / 0000 Lens, Ab #Sn60wf - [id number] LENS Left: Eye Ab 11/21/2023 SN60WF / Implanted: Qty: 1 on 11/07/2019 by Maulik William MD at [facility] [id number] / 0000 documented as of this encounter Results Not on filedocumented in this encounter Insurance Payer Benefit Plan Subscriber ID Effective Phone Address Typ e / Group Dates [facility] [id number] 2016-Prese [phone] [address] PPO/POS - OUT OF nt 87 [id number] [place] [address] MEDICARE MEDICARE PART [id number] 1996-Pres [phone] P. O. ANANTH X Medicare A & B ent 82 [id number] [place] [phone] documented as of this encounter
--- OUTSIDE RECORDS SUMMARY | 2020-02-04 16:41 | XMS REPORT | Summary of Care ---
:1950 Author Organization [facility] Address [address] [place] [address] Care Team Providers Name Role Phone Casey Adkins Primary Care Provider Reason for Visit Reason Comments Rx Concern/Question Notification Encounter Details Date Type Department Care Team Description 11/19/2019 Telephone [facility] Eye Maulik Ugarte, Rx Co ncern/Question; [facility] Notification [address] [facility]. [address] [place] [address] 77 555 [phone] Allergies Active Allergy Reactions Severity Noted Date Comments Sulfa (Sulfonamide Antibiotics) Rash 7 documented as of this encounter (statuses as of 11/21/2019) Medications Medication Sig Dispensed Refills Start Date [...] as of this encounter (statuses as of 11/21/2019) Active Problems Problem Noted Date Nuclear senile cataract of both eyes 04/20/2019 Overview: Added automatically from request for elkin campbell [id number] documented as of this encounter (statuses as of 11/21/2019) Social History Tobacco Use Types Packs/Day Years [...] this encounter Miscellaneous Notes Telephone Encounter - Agata Dutta - 11/21/2019 11:36 AM CDTTelevisit scheduled with Dr. Ugarte for 11/29/19 at 3:330PM elephone Encounter - Denisha Stubbs - 11/19/2019 2:29 PM CDTRouting to PSS to schedule. Denisha Stubbs 11/19/2019 2:30 PM Telephone Encounter - Maulik Ugarte MD - 11/19/2019 2:25 PM CDTYes, please reschedule. I can do a telehealth visit next week with her. elephone Encounter - Denisha Stubbs - 11/19/2019 1:[address] Ugarte. Denisha Stubbs 11/19/2019 1:51 PM Telephone Encounter - Sandra Dumas - 11/19/2019 12:22 PM CDTSanthonyjesus Beckman is a 69 year old female calling stating her spouse has fever/covid symptoms and is scheduled to get tested. Pt is scheduled for 1 wk po on today 11/19/19 and will need to r/s due to possible covid-19 exposure. Please contact to advise: [phone] (home). documented in this encounter Plan of Treatment Date Type Specialty Care Team Description 11/29/2019 Telemedicine Visit Ophthalmology Maulik Ugarte MD [address] [place] [address] 77 555 11/30/2019 Office Visit Obstetrics & Gynecology Jeffrey Mata MD [address] [place] [address] 77 555 Health Maintenance Due Date Last [...] of this encounter Implants Implanted Type Area Relay Technician Device Shelf Model / Serial Identifier Expiration / Lot Date Lens, Ab #Sn60wf - [id number] LENS Right: Ab 01/20/2023 SN60WF / Implanted: Qty: 1 on 09/26/2019 by Maulik William MD at [facility] Eye [id number] / 0000 Lens, Ab #Sn60wf - [id number] LENS Left: Eye Ab 11/21/2023 SN60WF / Implanted: Qty: 1 on 11/07/2019 by Maulik William MD at [facility] [id number] / 0000 documented as of this encounter Results Not on filedocumented in this encounter Additional Health Concerns Infection Onset Date Last Indicated Resolved Time COVID-19 Rule Out 11/20/2019 11/20/2019 11/21/2019 12: 25 AM CDT documented as of this encounter Insurance Payer Benefit Plan Subscriber ID Effective Phone Address Typ e / Group Dates [facility] [id number] 2016-Prese [phone] [address] PPO/POS - OUT OF 87 [id number] [place], [place] [address] MEDICARE MEDICARE PART [id number] 1996-Pres [phone] P[address] O[address] ANANTH X Medicare A & B ent 82 [id number] [place] [address] documented as of this encounter
--- OUTSIDE RECORDS SUMMARY | 2020-02-04 16:41 | XMS REPORT | Summary of Care ---
:1950 Author Organization [facility] Address [address] [place] [address] Care Team Providers Name Role Phone LucilleCasey Primary Care Provider Reason for Visit Reason Comments LAB covid Encounter Details Date Type Department Care Team Description 11/20/2019 Laboratory Only [facility] Family AnneGracie FNP [address] [place] [id number] Suspected Covid-19 [facility], Adc Fam Pob I Virus Infection [address] [place] [address] (Primary D x) [place] [address] Allergies Active Allergy Reactions Severity Noted Date [...] Added automatically from request for elkin campbell [id number] documented as of this encounter (statuses as [...] Signs Not on filedocumented in this encounter Nursing Notes May Muhammad RN - 11/20/2019 11:20 AM Raya Beckman is a 69 year old female here for COVID Screening with a Nasopharyngeal Swab All droplet and contact precautions taken with appropriate PPE worn while interacting with patient. ? Goggles ? N95 Mask ? Gloves ? Gown RR 16 Pulse Ox 97% Patient educated on plan of care for visit, swabbing technique, risks and benefits of test and length of time to receive results. Verbal consent obtained to perform test. CDC Fact Sheet for Patients nCoV Diagnostic Panel dated 05/06/2019 and Factsheet What to Do if Sick with COVID 19 04/16/19 provided. Patient swabbed per appropriate nasopharyngeal technique, and patient tolerated well. Patient was discharged from the testing clinic in stable condition. May Muhammad RN 11/20/2019 11:19 AM documented in this encounter Plan of Treatment Date Type Specialty Care Team Description 11/30/2019 Office Visit Obstetrics & Gynecology Jeffrey Mata MD [address] [place] [address] 555 Name Type Priority Associated Diagnoses Order S chedule COVID-19 (PCR MOLECULAR LAB Routine Suspected Covid-1 9 Virus Expected: 11/20/2019, TESTING) Infection Expires: 2020 Health Maintenance Due Date Last Done Comments [...] of this encounter Implants Implanted Type Area Interior Horticulturist Device Shelf Model / Serial Identifier Expiration / Lot Date Lens, Ab #Sn60wf - [id number] LENS Right: Ab 01/20/2023 SN60WF / Implanted: Qty: 1 on 09/26/2019 by Maulik William MD at [facility] [id number] / 0000 Lens, Ab #[id number] - [id number] LENS Left: Eye Ab 11/21/2023 SN60WF / Implanted: Qty: 1 on 11/07/2019 by Maulik William MD at [facility] [id number] / 0000 documented as of this encounter Results Not on filedocumented in this encounter Visit Diagnoses Diagnosis Suspected COVID-19 virus infection - [facility] documented in this encounter Insurance Payer Benefit Plan Subscriber ID Effective Phone Address Typ e / Group Dates [facility] [id number] 2016-Prese [phone] [address] PPO/POS - OUT OF nt [id number] [place] [address] MEDICARE MEDICARE PART [id number] 1996-Pres [phone] [address] A[address] X Medicare A & B ent 82 [id number] [place] [phone] (Work) documented as of this encounter
--- OUTSIDE RECORDS SUMMARY | 2020-02-04 16:41 | XMS REPORT | Summary of Care ---
:1950 Author Organization [facility] Address [address] [place] [address] Care Team Providers Name Role Phone Casey Adkins Primary Care Provider Reason for Visit Reason Comments Incontinence fecal and bowel Encounter Details Date Type Department Care Team Description 11/30/2019 Office Visit [facility] Pelvic Jeffrey Mata MD Incontinence of feces, unspecified fecal incontinence type (Primary Dx); [facility]- [address] [place] [address] lvd Mixed stress [place] [address] [place] [address] [facility] [place] [address] Allergies Active Allergy Reactions Severity Noted Date [...] Added automatically from request for elkin campbell [id number] documented as of this encounter (statuses as [...] of this encounter Last Filed Vital Signs Vital Sign Reading Time Taken Comments Blood Pressure 140/90 11/30/2019 2:03 PM CDT Pulse 74 11/30/2019 2:00 PM CDT Temperature - - Respiratory Rate 18 11/30/2019 2:00 PM CDT Oxygen Saturation 99% 11/30/2019 2:00 PM CDT Inhaled Oxygen Concentration - - Weight 57.8 kg (127 lb 6.4 oz) 11/30/2019 2:00 PM CDT Height 152.4 cm (5') 11/30/2019 2:00 PM CDT Body Mass Index 24.88 11/30/2019 2:00 PM CDT documented in this encounter Progress Notes Nesha Olivas MD - 11/30/2019 1:30 PM CDT 11/30/2019 Visit Type: Clinic Note / History and Physical Primary M.D.: Casey Beckman is a 69 year old female with complaints of fecal incontinence and urinary incontinence. She reports that her main issue is with fecal incontinence. She has PMHx of multiple sclerosis. She reports that her previous partner used her with anal intercourse. She subsequently found a new partner and has been happily for the past 25 years. During that time she has two children () and has been having issues with fecal incontinence throughout all this time. She reports having a surgery by a physician in [facility] approximately 2 years ago for what sounds like sphincte roplasty but reports there was no improvement. She did not like this physician and decided not to goback to him. She reports having to wear pads due to fecal incontinence. She reports seeing leakage in her pads throughout the day. She takes lomotil to the point of having constipation to avoid having leakage. She reports her bowel movements are soft and occur frequently. She has been evaluated with colonoscopy in the past. Her first colonoscopy found 3 polyps that were benign. She then had a follow up colonoscopy 5 years later that was negative. She is now due to another colonoscopy for which she is scheduled for in the next few weeks. She does report having a bladder suspension at the time of her hysterectomy about 30 years ago. She reports that after this time, she has had issues with leakage of urine with coughing and laughing. She reports having a strong urge to urinate and goes to the bathroom about 12x/day. She states that about 1-2x/day she leaks urine on the way to the bathroom. She reports having to use the restroom at night about 3-4x/night. She reports having to change her pads during the day about 5 times and 1-2 timesat night. She reports drinking about 8 cups of water per day and reports she specifically drinks decaf coffee and avoids caffeine at all costs to avoid further urinary or fecal incontinence. She denies having any contents coming out of the vagina or having to replace anything back into the vagina. She denies feeling pelvic pressures. She denies having dysuria or hematuria. She is not currently sexually active and does not desire to be. She does report vaginal dryness and using vaginal estrogen in the past when she was sexually active due to dyspareunia. MEDICATIONS Patient's Medications START taking these medications No medications on file CONTINUE taking these medications which have NOT CHANGED BIMATOPROST (LUMIGAN) 0.01 % OPHTHALMIC DROPS Place 1 Drop in each eye at bedtime. CARVEDILOL (COREG) 25 MG TABLET CARVEDILOL 25 MG TABLET Take 25 mg by mouth daily. FEXOFENADINE 60 MG TABLET GLATIRAMER (COPAXONE) 40 MG/ML SYRG inject 40 mg under the skin every other day. No more than 3 times a week. GLYCOPYRROLATE 1 MG TABLET TAKE 1 TO 2 TABLETS BY MOUTH 2-3 TIMES A DAY GLYCOPYRROLATE 2 MG TABLET Take 2 mg by mouth daily. KETOROLAC 0.5 % OPHTHALMIC SOLUTION Place 1 Drop in left eye 4 (four) times daily. LEVOFLOXACIN 500 MG TABLET Take 500 mg by mouth every 24 (twenty-four) hours. LEVOTHYROXINE 50 MCG TABLET Take 50 mcg by mouth daily. LISINOPRIL ORAL Take by mouth. MOMETASONE (NASONEX) 50 MCG/ACTUATION NASAL SPRAY spray 2 spray by intranasal route every day in each nostril MOXIFLOXACIN 0.5 % OPHTHALMIC DROPS Place 1 Drop in left eye 4 (four) times daily. OMEPRAZOLE 40 MG CAPSULE PAROXETINE 20 MG TABLET TAKE 1 TABLET BY MOUTH EVERY DAY PREDNISOLONE ACETATE 1 % OPHTHALMIC SUSPENSION DROPS Place 1 Drop in left eye 4 (four) times daily. SACUBITRIL-VALSARTAN (ENTRESTO) 24-26 MG TABLET Take 1 tablet by mouth 2 (two) times daily. START taking Modified Medications as Prescribed No medications on file STOP taking these medications No medications on file HISTORY Allergies Allergen Reactions Sulfa (Sulfonamide Antibiotics) Rash Social History Tobacco Use Smoking status: Former Smoker Smokeless tobacco: Never Used Substance Use Topics Alcohol use: No Drug use: No No family history on file. Past Medical History: Diagnosis Date Cataract Glaucoma Hypertension Hypothyroidism Multiple sclerosis Past Surgical History: Procedure Laterality Date PHACOEMULSIFICATION OF CATARACT WITH INTRAOCULAR LENS IMPLANT Right 09/26/2019 Surgeon: Maulik Ugarte MD; Location: [facility] OR Location PHACOEMULSIFICATION OF CATARACT WITH INTRAOCULAR LENS IMPLANT Left 11/07/2019 Surgeon: Maulik Ugarte MD; Location: [facility] OR Location Review of Systems Constitutional: Negative for chills, fatigue, fever, weight gain and weight loss. HENT: Negative for trouble swallowing. Eyes: Negative for photophobia. Respiratory: Negative for cough, choking, chest tightness and shortness of breath. Breasts: Negative for discharge, mass and pain. Cardiovascular: Positive for palpitations. Negative for chest pain and leg swelling. Gastrointestinal: Positive for constipation and diarrhea. Negative for abdominal distention, abdominal pain, nausea and vomiting. Genitourinary: Positive for bladder incontinence, urgency, frequency and nocturia. Negative for dysuria, hematuria, flank pain, decreased urine volume, vaginal bleeding, vaginal discharge, difficulty urinating, genital sores, vaginal pain and pelvic pain. Musculoskeletal: Negative for back pain. Skin: Negative for pallor. Neurological: Positive for weakness. Negative for facial asymmetry, speech difficulty, light-headedness, numbness and headaches. Psychiatric/Behavioral: Positive for dysphoric mood. The patient is not nervous/anxious. Hematological: Negative for cold intolerance and heat intolerance. Does not bruise/bleed easily. Endocrine: Negative for hair loss, cold intolerance, heat intolerance, weight gain and weight loss. Vitals: 11/30/19 1400 11/30/19 1403 BP: (!) 163/96 (!) 140/90 Pulse: 74 Resp: 18 SpO2: 99% Weight: 127 lb 6.4 oz (57.8 kg) Height: 5' (1.524 m) Physical Exam Vitals reviewed. Constitutional: She is oriented to person, place, and time. She appears well- developed, well-nourished and well-groomed. Her body habitus is normal. Cardiovascular: No peripheral edema present. Pulmonary/Chest: Normal inspiratory effort. Abdominal: Abdomen is soft. No mass palpated. No tenderness present. There is no hepatosplenomegaly.There is no rigidity and no guarding. Neuro/Psychiatric: She has a normal mood and affect. She is oriented to person, place, and time. Rectal: Rectal exam with abnormal anal tone. Anus orifice has baseline loss of tone. Minimal to no tone when asked to strain. Dried feces present around the anus and along the buttock from previous incontinence prior to exam. External genitalia: Normal hair distribution. No labial lesion. Urethral meatus: Normal urethral meatus size, location and no lesion. No prolapse present. Normal urethral meatus Urethra: Normal urethra. No urethral tenderness, no mass and no urethral scarring palpated. Vagina:No lesion inspected. Abnormal estrogen effect. No abnormal vaginal discharge found. No lesions in the vagina. Vaginal atrophy and dryness noted. Decreased size in perineal body and genital hiatus. No prolapse appreciable Cervix: Cervix absent. Uterus: Uterus absent. PVR: 36 cc POP-Q EXAM Not Done ASSESSMENT/PLAN Incontinence of feces, unspecified fecal incontinence type (primary encounter diagnosis) Comment: patient reports taking anti-diarrheal medications to the point of having constipation all to avoid fecal incontinence. She has previously had sphincteroplasty approximately 2 years that did not help with her symptoms. She has significant decrease in quality of life due to her fecal incontinence that requires her to change out her pads multiple times a day and affects her daily life. She has been evaluated for colonoscopy in the past and was negative for malignancy and will have another in the next few weeks for which she will bring her records of the results. Also discussed with the patient her multiple sclerosis most likely has a very large role to play in both her urinary and bowel symptoms along with the anal intercourse and vaginal deliveries in the past. Plan: Discussed with the patient that she has failed medical and surgical management in the past andthus would be a great candidate for PNE (peripheral nerve evaluation). Discussed the risks and benefits of this procedure and patient was happy to hear that something could be done for her symptoms. She was given pamphlets of information for her to look over and discussed filling out both the bowel and urinary diaries prior to her appointment date set for December 27. Discussed with the patient thata temporary treatment would occur and to record symptoms after treatment and if 50% improvement or greater, would move forward for more assisted therapy. Mixed stress and urge urinary incontinence Comment: patient reporting both symptoms of leakage with coughing or laughing as well as having issues making it to the bathroom in time before leaking. She states requiring to wear pads due to this leakage and has significant decrease in quality of life due to this. Plan: Discussed with patient that PNE would also help with these symptoms and plan to move forward with this treatment modality Return to clinic on December 27 to see BENITEZ Dumas for PNE. Request of records from physician who performed sphincteroplasty. Record bladder and bowel symptoms 3 days prior to PNE appointment to compare symptoms after treatment. Total time of visit: 60 minutes I spent more than 50% of the visit counseling with the patient regarding fecal and urinary incontinence, treatment options, testing, and follow up. I actively participated in the decision-making process. Please see the resident's note for additional details. Jeffrey Mata MD 12/03/2019 12:19 PM documented in this encounter Plan of Treatment Date Type Specialty Care Team Description 12/28/2019 Office Visit Obstetrics & Gynecology Robert Dumas, MAVERICK, MICHAEL, [facility] - [address] [place] [address] [phone] 01/04/2020 Office Visit Obstetrics & Gynecology Robert Dumas DNP, MICHAEL, [facility] - [address] [place] [address] [phone] Health Maintenance Due Date Last Done Comments [...] of this encounter Implants Implanted Type Area Right Of Way Manager Device Shelf Model / Serial Identifier Expiration / Lot Date Lens, Ab #Sn60wf - [id number] LENS Right: Ab 01/20/2023 SN60WF / Implanted: Qty: 1 on 09/26/2019 by Maulik William MD at [facility] [id number] / 0000 Lens, Ab #[id number] - [id number] LENS Left: Eye Ab 11/21/2023 SN60WF / Implanted: Qty: 1 on 11/07/2019 by Maulik William MD at [facility] [id number] / 0000 documented as of this encounter Results Not on filedocumented in this encounter Visit Diagnoses Diagnosis Incontinence of feces, unspecified fecal incontinence type - Primary Mixed stress and urge urinary incontinen ce Mixed incontinence urge and stress (male )(female) documented in this encounter Insurance Payer Benefit Plan Subscriber ID Effective Phone Address Typ e / Group Dates [facility] [id number] 2016-Tracie [phone] [address] PPO/POS - OUT OF 87 [id number] [place] [address] MEDICARE MEDICARE PART [id number] 1996-Pres [phone] [address] A[address] X Medicare A & B ent [id number] [place] [phone] (Work) documented as of this encounter
--- OUTSIDE RECORDS SUMMARY | 2020-02-04 16:41 | XMS REPORT | Summary of Care ---
:1950 Author Organization [facility] Address [address] [place] [address] Care Team Providers Name Role Phone Casey Adkins Primary Care Provider Reason for Visit Reason Comments Incontinence fecal and bowel Encounter Details Date Type Department Care Team Description 11/30/2019 Office Visit [facility] Pelvic Jeffrey Mata MD Incontinence of feces, unspecified fecal incontinence type (Primary Dx); [facility]- [address] [place] [address] lvd Mixed stress [place] [address] [place] [address] [facility] [place] [address] Allergies Active Allergy Reactions Severity [...] Added automatically from request for elkin campbell [id number] documented as of this encounter (statuses as [...] having a surgery by a physician in [facility] approximately 2 years ago for what sounds [...] Right 09/26/2019 Surgeon: Maulik Ugarte MD; Location: [facility] OR Location PHACOEMULSIFICATION OF CATARACT WITH INTRAOCULAR LENS IMPLANT Left 11/07/2019 Surgeon: Maulik Ugarte MD; Location: [facility] OR Location Review of Systems Constitutional: Negative [...] or greater, would move forward for more long-term therapy. Mixed stress and urge urinary incontinence [...] Obstetrics & Gynecology Robert Dumas, MAVERICK, MICHAEL, [facility] - [address] [place] [address] [phone] 01/04/2020 Office Visit Obstetrics & Gynecology Robert Dumas DNP, MICHAEL, [facility] - [address] [place] [address] [phone] Health Maintenance Due Date Last Done Comments [...] of this encounter Implants Implanted Type Area Wedding Decorator Device Shelf Model / Serial Identifier Expiration / Lot Date Lens, Ab #Sn60wf - [id number] LENS Right: Ab 01/20/2023 SN60WF / Implanted: Qty: 1 on 09/26/2019 by Maulik William MD at [facility] [id number] / 0000 Lens, Ab #Sn60wf - [id number] LENS Left: Eye Ab 11/21/2023 SN60WF / Implanted: Qty: 1 on 11/07/2019 by Maulik William MD at [facility] [id number] / 0000 documented as of this encounter Results Not on filedocumented in this encounter Visit Diagnoses Diagnosis Incontinence of feces, unspecified fecal incontinence type - Primary Mixed stress and urge urinary incontinen ce Mixed incontinence urge and stress (male )(female) documented in this encounter Insurance Payer Benefit Plan Subscriber ID Effective Phone Address Typ e / Group Dates [facility] [id number] 2016-Tracie [phone] [address] PPO/POS - OUT OF 87 [id number] [place] [address] MEDICARE MEDICARE PART [id number] 1996-Pres [phone] [address] X Medicare A & B ent 82 [id number] [place] [phone] (Work) documented as of this encounter
--- OUTSIDE RECORDS SUMMARY | 2020-02-04 16:41 | XMS REPORT | Summary of Care ---
:1950 Author Organization [facility] Address [address] [place] [address] Care Team Providers Name Role Phone Lucille Casey Primary Care Provider Reason for Visit Reason Comments POST-OP Encounter Details Date Type Department Care Team Description 11/29/[address] [facility] [place], Pseudo phakia of right eye (Primary Dx); Clinic- [facility] [place] Pseudophakia of left eye; [facility] [address] [place] [address] [facility], [place] [phone] Allergies Active Allergy Reactions Severity Noted Date Comments Sulfa (Sulfonamide Antibiotics) Rash 7 documented as of this encounter (statuses as of 11/29/2019) Medications Medication Sig Dispensed Refills Start Date [...] as of this encounter (statuses as of 11/29/2019) Active Problems Problem Noted Date Nuclear senile cataract of both eyes 04/20/2019 Overview: Added automatically from request for elkin campbell [id number] documented as of this encounter (statuses as of 11/29/2019) Social History Tobacco Use Types Packs/Day Years [...] Patient Instructions Patient InstructionsMaulik Ugarte MD - 11/29/2019 3:30 PM CDTPt educated and instructed on the use of drops. Pt to continue drops as prescribed. Pt to call the office and/or check in the ED if decreased vision, pain or other vision related symptoms arise. Otherwise pt to return in 3 months. documented in this encounter Progress Notes Maulik Ugarte MD - 11/29/2019 3:30 PM CDT Cc: POST-OP Ramandeep Beckman is a 69 year old female. HPI Past Medical History: Diagnosis Date Cataract Glaucoma Hypertension Hypothyroidism Multiple sclerosis Review of Systems Reviewed ROS done by the water treatment technician during this encounter and there are no changes. Assessment ICD-10-CM ICD-9-CM 1. Pseudophakia of right eye Z96.1 V43.1 2. Pseudophakia of left eye Z96.1 V43.1 3. Dry eye H04.129 375.15 Shantel Sabillon was seen today for post-op. Diagnoses and all orders for this visit: Pseudophakia of right eye S/p CEIOL OD . Patient doing fine, very pleased with vision Taper off eye drops as recommended Pseudophakia of left eye RD precautions Dry eye AT's PRN OU TELEHEALTH NOTE Verbal consent obtained from Patient: Ramandeep Beckman due to the COVID-19 pandemic for telehealth services provided below. Communication with patient was conducted via Telephone due to patient unable to obtain video call option. Location of Patient: Home Location of Provider: Clinic Date of Service: 11/29/2019 Chief Complaint: s/p CEIOL OD HPI: Ramandeep Beckman is a 69 year old female with Past Medical History: Diagnosis Date Cataract Glaucoma Hypertension Hypothyroidism Multiple sclerosis MEDICATIONS: Current Outpatient Medications Medication Sig Dispense Refill levoFLOXacin 500 mg tablet Take 500 mg by mouth every 24 (twenty-four) hours. sacubitriL-valsartan (ENTRESTO) 24-26 mg tablet Take 1 tablet by mouth 2 (two) times daily. ketorolac 0.5 % ophthalmic solution Place 1 Drop in left eye 4 (four) times daily. 3 mL 0 moxifloxacin 0.5 % ophthalmic drops Place 1 Drop in left eye 4 (four) times daily. 3 mL 0 prednisoLONE acetate 1 % ophthalmic suspension drops Place 1 Drop in left eye 4 (four) times daily. 5 mL 1 PAROXETINE 20 mg tablet TAKE 1 TABLET BY MOUTH EVERY DAY 30 tablet 3 fexofenadine 60 mg tablet carvediloL (COREG) 25 mg tablet mometasone (NASONEX) 50 mcg/actuation nasal spray spray 2 spray by intranasal route every day in each nostril omeprazole 40 mg capsule bimatoprost (LUMIGAN) 0.01 % ophthalmic drops Place 1 Drop in each eye at bedtime. glatiramer (COPAXONE) 40 mg/mL Syrg inject 40 mg under the skin every other day. No more than 3 times a week. 36 Syringe 3 carvedilol 25 mg tablet Take 25 mg by mouth daily. 0 glycopyrrolate 1 mg tablet TAKE 1 TO 2 TABLETS BY MOUTH 2-3 TIMES A DAY 0 glycopyrrolate 2 mg tablet Take 2 mg by mouth daily. 1 levothyroxine 50 mcg tablet Take 50 mcg by mouth daily. 0 LISINOPRIL ORAL Take by mouth. No current facility-administered medications for this visit. ROS S/p CEIOL both eyes, doing great as per patient TELEHEALTH EXAM Unable today, patients states vision is great over the phone and eyes are comfortable ASSESSMENT/ PLAN Ramandeep Beckman is a 69 year old female with PMH as above presenting with: 1. Pseudophakia of right eye RD precautions 2. Pseudophakia of left eye RD precautions 3. Dry eye AT's PRN OU After visit summary (AVS ) documentation will be available [facility] this encounter. A total of 10 minutes was spent on the Telephone due to patient unable to obtain video call option. Maulik Ugarte MD Review in 2-3 months for IOP check and DFE both eyes documented in this encounter Plan of Treatment Date Type Specialty Care Team Description 11/30/2019 Office Visit Obstetrics & Gynecology Jeffrey Mata MD [address] [place] [address] 555 Health Maintenance Due Date Last Done [...] of this encounter Implants Implanted Type Area Crossbar Switch Adjuster Device Shelf Model / Serial Identifier Expiration / Lot Date Lens, Ab #Sn60wf - [id number] LENS Right: Ab 01/20/2023 SN60WF / Implanted: Qty: 1 on 09/26/2019 by Maulik William MD at [facility] Eye [id number] / 0000 Lens, Ab #[id number] - [id number] LENS Left: Eye Ab 11/21/2023 SN60WF / Implanted: Qty: 1 on 11/07/2019 by Maulik William MD at [facility] [id number] / 0000 documented as of this encounter Results Not on filedocumented in this encounter Visit Diagnoses Diagnosis Pseudophakia of right eye - Primary Lens replaced by other means Pseudophakia of left eye Lens replaced by other means Dry eye documented in this encounter Insurance Payer Benefit Plan Subscriber ID Effective Phone Address Typ e / Group Dates [facility] [id number] 2016-Tracie [phone] [address] PPO/POS - OUT OF nt 87 [id number] [place] [address] MEDICARE MEDICARE PART [id number] 1996-Pres [phone] [address] X Medicare A & B ent 82 [id number] [place] [phone] (Work) documented as of this encounter
--- OUTSIDE RECORDS SUMMARY | 2020-02-04 16:42 | XMS REPORT | Summary of Care ---
:1950 Author Organization [facility] Address [address] [place] [address] Care Team Providers Name Role Phone Janusz Adkinsey Primary Care Provider Reason for Visit Reason Onset Date Comments POST-OP 12/31/2019 vomiting Encounter Details Date Type Department Care Team Description 12/31/2019 Nurse Triage [facility] Stephanie Dempsey RN POST-OP (vomiting) [address] [place] [phone] Allergies Active Allergy Reactions Severity Noted Date Comments Sulfa (Sulfonamide Antibiotics) Rash 7 documented as of this encounter (statuses as of 12/31/2019) Medications Medication Sig Dispensed Refills Start Date [...] as of this encounter (statuses as of 12/31/2019) Active Problems Problem Noted Date Nuclear senile cataract of both eyes 04/20/2019 Overview: Added automatically from request for elkin campbell [id number] documented as of this encounter (statuses as of 12/31/2019) Social History Tobacco Use Types Packs/Day Years Used Date Former Smoker Smokeless Tobacco: Never Used Alcohol Use Drinks/Week oz/Week Comments No Sex Assigned at Date Recorded Not on file documented as of this encounter Last Filed Vital Signs Not on filedocumented in this encounter Miscellaneous Notes Telephone Encounter - Stephanie Dempsey RN - 12/31/2019 8:51 PM CSTAdult Triage Assessment Last Clinic Visit: 12/31/2019 - PNE procedure Primary Symptom: Nausea, vomited x1, chills Onset / Duration: Began after procedure. Patient states she went out for lunch after leaving the doctors office. Location / Description: Vomiting x1, chills Pain / Severity: 0/10 Associated Symptoms: Chills and vomiting x1. Denies shortness or breath. Fever / Method: Denies Hydration: Drinking water well today Treatment so far: nothing done Effect on ADL's: some LMP: n/a Pre-existing condition / Immunocompromised: HTN, MS Reason for Disposition [1] Vomiting AND [2] present < 4 hours Protocols used: POST-OP SYMPTOMS AND [id number]-SP Patient calls stating that she had a PNE procedure done today and when she left the procedure she went to lunch. Patient states when she got home she vomited x1 and was unsure if it was related to theprocedure. RN reviews Post-Op Symptoms And Questions-Adult Protocol and gives patient some home care advice as well as call back warnings. Patient states she is having some diarrhea as well and is going to take Imodium tonight as directed by her doctor. RN notifies patient that she is going to route this encounter to the clinic for follow-up in the morning and patient is agreeable. elephone Encounter - Stephanie Dempsey RN - 12/31/2019 8:51 PM CSTRegarding: PNE procedure in uro/superintendent nonselling clinic today, now has chills, nausea and vomited once ----- Message from Betty Palma sent at 12/31/2019 8:49 PM MASTER BAKER ----- Ramandeep Beckman is a 69 year old female PT is calling stating she had a procedure - PNE - in the uro[facility]superintendent nonselling clinic and ever since has been feeling nauseas, vomited once and has the chills and is wanting to to know if this has something to do with the PNE documented in this encounter Plan of Treatment Date Type Specialty Care Team Description 01/07/2020 Office Visit Obstetrics & Gynecology Robert Dumas, DNP, DRY PRESS OPERATOR, WHCNP -BC [address] [place] [address] Health Maintenance Due Date Last Done Comments [...] of this encounter Implants Implanted Type Area Podiatric Assistant Device Shelf Model / Serial Identifier Expiration / Lot Date Lens, Ab #Sn60wf - [id number] LENS Right: Ab 01/20/2023 SN60WF / Implanted: Qty: 1 on 09/26/2019 by Maulik William MD at [facility] Eye [id number] / 0000 Lens, Ab #Sn60wf - [id number] LENS Left: Eye Ab 11/21/2023 SN60WF / Implanted: Qty: 1 on 11/07/2019 by Maulik William MD at [facility] [id number] / 0000 documented as of this encounter Results Not on filedocumented in this encounter Insurance Payer Benefit Plan Subscriber ID Effective Phone Address Typ e / Group Dates [facility] [place] [id number] 2016-Prese [phone] [address] PPO/POS - OUT OF nt 87 [id number] [place] [address] MEDICARE MEDICARE PART [id number] 1996-Pres [phone] [address] A[address] X Medicare A & B ent 82 [id number] [place] [phone] documented as of this encounter
--- OUTSIDE RECORDS SUMMARY | 2020-02-04 16:42 | XMS REPORT | Summary of Care ---
:1950 Author Organization [facility] Address [address] [place] [address] Care Team Providers Name Role Phone Casey Adkins Primary Care Provider Reason for Visit Reason Comments Follow-up PNE Encounter Details Date Type Department Care Team Description 12/31/2019 Office Visit [facility] Women[facility] Jan Dumas In continence of feces, unspecified fecal incontinence type (Primary Dx); Health Care, Clear N, DNP, SECURITY ASSURANCE SPECIALIST, Mixed st ress and urge [facility] [address] [place] [address] [address] [place] [phone] Allergies Active Allergy Reactions Severity Noted Date [...] Overview: Added automatically from request for elkin shannan [id number] documented as of this encounter (statuses as of 12/31/2019) Social History Tobacco Use Types Packs/Day Years Used Date Former Smoker Smokeless Tobacco: Never Used Alcohol Use Drinks/Week oz/Week Comments No Sex Assigned at Date Recorded Not on file documented as of this encounter Last Filed Vital Signs Vital Sign Reading Time Taken Comments Blood Pressure 139/85 12/31/2019 3:15 PM GROUND SOURCE HEAT PUMP TECHNICIAN Pulse 61 12/31/2019 3:15 PM GROUND SOURCE HEAT PUMP TECHNICIAN Temperature 36.7 C (98 F) 12/31/2019 3:15 PM GROUND SOURCE HEAT PUMP TECHNICIAN Respiratory Rate 18 12/31/2019 3:15 PM GROUND SOURCE HEAT PUMP TECHNICIAN Oxygen Saturation 97% 12/31/2019 3:15 PM GROUND SOURCE HEAT PUMP TECHNICIAN Inhaled Oxygen Concentration - - Weight 58.2 kg (128 lb 6.4 oz) 12/31/2019 3:15 PM GROUND SOURCE HEAT PUMP TECHNICIAN Height 152.4 cm (5') 12/31/2019 3:15 PM GROUND SOURCE HEAT PUMP TECHNICIAN Body Mass Index 25.08 12/31/2019 3:15 PM GROUND SOURCE HEAT PUMP TECHNICIAN documented in this encounter Progress Notes Jan Dumas, DNP, SECURITY ASSURANCE SPECIALIST, WHCNP-BC - 12/31/2019 2:00 PM Danyelle Beckman is a 69 year old female here for Basic Evaluation (PNE) without fluoroscopy. Patient has fecal incontinence and urge incontinence Patient was properly identified and placed in prone position. Pillows were placed under the abdomen to flatten sacrum and under shins to allow the toes to dangle freely. A ground pad was placed on the bottom of the patients foot and the long test stimulation cable was connected to the ground pad and the external test stimulator. Patient was prepped and draped in usual sterile fashion. The sciatic notches and sacral midline were identified via palpation. The level of S3 was identifiedby measuring 9 cm from the tip of the coccyx. Local injection of 0.5 ml was administered at the foramen needle entry point located 2 cm lateral to the sacral midline and 2 cm cephalad of sciatic notch level. A (3.5) foramen needle was introduced at an approximate 60 degree angle, feeling for the foraminal margins until S3 was identified. Proper needle position was confirmed by the patient identifying location of stimulation sensation; and direct observation of the lifting of the perineum of bellowing , and plantar flexion of the great toe utilizing the j-hook patient cable and the external test stimulator. The foramen needle stylet was removed and a percutaneous lead was inserted to proper depth identified by markers on the lead. The lead was tested by connecting the j-hook patient cable to the proximal lead electrode and the external test stimulator. Upon response confirmation, the foramen needle was re moved by sliding over the percutaneous lead. The foramen needle and lead stylet were removed while securing lead location. Retesting to confirm appropriate lead response was completed. The same procedure was unsuccessful on the left side. The leads were connected to the short test stimulation cables which were connected to ground pads placed on the patients lower back. Patient was cleaned and external cabling was secured covering with transparent/paper dressing. Estimated blood was minimal. Post procedure, the patient was programmed with the external test stimulator to optimum sensation via the lead and provided utilization instructions prior to discharge. Patient will complete a voiding diary during testing period to help document results of this procedure. Incontinence of feces, unspecified fecal incontinence type (primary encounter diagnosis) Comment: PNE performed unilaterally today on patient right side. Patient given demonstration and instructions on how to use controller. Plan: RTC in one week for results. Mixed stress and urge urinary incontinence Comment: see above Plan: see above documented in this encounter Plan of Treatment Date Type Specialty Care Team Description 01/07/2020 Office Visit Obstetrics & Gynecology Robert Dumas DNP, MICHAEL, JARED -RICO [address] [place] [phone] Health Maintenance Due Date Last Done Comments [...] of this encounter Implants Implanted Type Area Museum Informatics Specialist Device Shelf Model / Serial Identifier Expiration / Lot Date Lens, Ab #Sn60wf - [id number] LENS Right: Ab 01/20/2023 SN60WF / Implanted: Qty: 1 on 09/26/2019 by Maulik William MD at [facility] Eye [id number] / 0000 Lens, Ab #Sn60wf - [id number] LENS Left: Eye Ab 11/21/2023 SN60WF / Implanted: Qty: 1 on 11/07/2019 by Maulik William MD at [facility] [id number] / 0000 documented as of this encounter Results Not on filedocumented in this encounter Visit Diagnoses Diagnosis Incontinence of feces, unspecified fecal incontinence type - Primary Mixed stress and urge urinary incontinen ce Mixed incontinence urge and stress (male )(female) documented in this encounter Insurance Payer Benefit Plan Subscriber ID Effective Phone Address Typ e / Group Dates [facility] [id number] 2016-Prese [phone] [address] PPO/POS - OUT OF 87 [id number] [place] [address] MEDICARE MEDICARE PART [id number] 1996-Pres [phone] [address] A[address] X Medicare A & B ent 82 [id number] [place] [phone] (Work) documented as of this encounter
--- OUTSIDE RECORDS SUMMARY | 2020-02-04 16:42 | XMS REPORT | Summary of Care ---
:1950 Author Organization [facility] Address [address] [place] [address] Care Team Providers Name Role Phone Casey Adkins Primary Care Provider Reason for Visit Reason Comments Follow-up PNE Encounter Details Date Type Department Care Team Description 12/31/2019 Office Visit [facility] Jan Dumas In continence of feces, unspecified fecal incontinence type (Primary Dx); Health Care, Clear N, DNP, PARCEL POST TRUCK DRIVER, Mixed st ress and urge [facility] [address] [place] [address] [address] [place] [phone] Allergies Active Allergy Reactions [...] Added automatically from request for elkin shannan [id number] documented as of this encounter (statuses as of 12/31/2019) Social History Tobacco Use Types Packs/Day Years Used Date Former Smoker Smokeless Tobacco: Never Used Alcohol Use Drinks/Week oz/Week Comments No Sex Assigned at Date Recorded Not on file documented as of this encounter Last Filed Vital Signs Vital Sign Reading Time Taken Comments Blood Pressure 139/85 12/31/2019 3:15 PM DIE REPAIRER STAMPING Pulse 61 12/31/2019 3:15 PM DIE REPAIRER STAMPING Temperature 36.7 C (98 F) 12/31/2019 3:15 PM DIE REPAIRER STAMPING Respiratory Rate 18 12/31/2019 3:15 PM DIE REPAIRER STAMPING Oxygen Saturation 97% 12/31/2019 3:15 PM DIE REPAIRER STAMPING Inhaled Oxygen Concentration - - Weight 58.2 kg (128 lb 6.4 oz) 12/31/2019 3:15 PM DIE REPAIRER STAMPING Height 152.4 cm (5') 12/31/2019 3:15 PM DIE REPAIRER STAMPING Body Mass Index 25.08 12/31/2019 3:15 PM DIE REPAIRER STAMPING documented in this encounter Progress Notes Jan uDmas, DNP, PARCEL POST TRUCK DRIVER, WHCNP-BC - 12/31/2019 2:00 PM Danyelle Beckman [...] MICHAEL, JARED -RICO [address] [place] [phone] Health Maintenance Due Date Last Done Comments [...] of this encounter Implants Implanted Type Area Fleet Dispatch Manager Device Shelf Model / Serial Identifier Expiration / Lot Date Lens, Ab #Sn60wf - [id number] LENS Right: Ab 01/20/2023 SN60WF / Implanted: Qty: 1 on 09/26/2019 by Maulik William MD at [facility] Eye [id number] / 0000 Lens, Ab #Sn60wf - [id number] LENS Left: Eye Ab 11/21/2023 SN60WF / Implanted: Qty: 1 on 11/07/2019 by Maulik William MD at [facility] [id number] / 0000 documented as of this encounter Results Not on filedocumented in this encounter Visit Diagnoses Diagnosis Incontinence of feces, unspecified fecal incontinence type - Primary Mixed stress and urge urinary incontinen ce Mixed incontinence urge and stress (male )(female) documented in this encounter Insurance Payer Benefit Plan Subscriber ID Effective Phone Address Typ e / Group Dates [facility] [id number] 2016-Prese [phone] [address] PPO/POS - OUT OF 87 [id number] [place] [address] MEDICARE MEDICARE PART [id number] 1996-Pres [phone] P[address] ANANTH X Medicare A & B ent 82 [id number] [place] [phone] (Work) documented as of this encounter
--- OUTSIDE RECORDS SUMMARY | 2020-02-04 16:42 | XMS REPORT | Summary of Care ---
:1950 Author Organization [facility] Address [address] [place] [address] Care Team Providers Name Role Phone Casey Adkins Primary Care Provider Reason for Visit Reason Comments Letters Encounter Details Date Type Department Care Team Description 12/12/2019 Telephone [facility] Family Medicine - Lab, Adc Fa m Pob I Letters [address] [place] [address] Allergies Active Allergy Reactions Severity Noted Date Comments Sulfa (Sulfonamide Antibiotics) Rash 7 documented as of this encounter (statuses as of 12/12/2019) Medications Medication Sig Dispensed Refills Start Date [...] as of this encounter (statuses as of 12/12/2019) Active Problems Problem Noted Date Nuclear senile cataract of both eyes 04/20/2019 Overview: Added automatically from request for elkin campbell [id number] documented as of this encounter (statuses as of 12/12/2019) Social History Tobacco Use Types Packs/Day Years [...] this encounter Miscellaneous Notes Telephone Encounter - Raymundo Pierre RN - 12/12/2019 12:28 PM CDTCalled patient "I need a letter of my covid results from last month" Informed patient of negative covid result Patient requesting letter mailed to home. Confirmed mailing address on file with patient ALESHA Palmer, RN [facility] Access Center elephone Encounter - Isela Lee - 12/12/2019 12:06 PM JOSE RAFAELBuzz Beckman is a 69 year old female Pt calling requesting a letter regarding her COVID 19 results she took last month, Patient states no one never called her nor did she receive a letter in the mail. Please contact patient [phone] (home) documented in this encounter Plan of Treatment Date Type Specialty Care Team Description 12/21/2019 Office Visit Obstetrics & Gynecology DrydenRobert, MAVERICK, CUSTOMER SUPPORT MANAGER, [facility] -[facility] [address] [place] [address] 12/28/2019 Office Visit Obstetrics & Gynecology DrydenRobert DNP, CUSTOMER SUPPORT MANAGER, [facility] [address] [place] [address] Health Maintenance Due Date Last [...] of this encounter Implants Implanted Type Area Lifestyle Block Farmer Device Shelf Model / Serial Identifier Expiration / Lot Date Lens, Ab #Sn60wf - [id number] LENS Right: Ab 01/20/2023 SN60WF / Implanted: Qty: 1 on 09/26/2019 by Maulik William MD at [facility] Eye [id number] / 0000 Lens, Ab #Sn60wf - [id number] LENS Left: Eye Ab 11/21/2023 SN60WF / Implanted: Qty: 1 on 11/07/2019 by Maulik William MD at [facility] [id number] / 0000 documented as of this encounter Results Not on filedocumented in this encounter Insurance Payer Benefit Plan Subscriber ID Effective Phone Address Typ e / Group Dates [facility] [id number] 2016-Tracie [phone] [address] PPO/POS - OUT OF 87 [id number] [place] [address] MEDICARE MEDICARE PART [id number] 1996-Pres [phone] P[address] ANANTH X Medicare A & B [facility] 82 [id number] [place] [phone] documented as of this encounter
--- OUTSIDE RECORDS SUMMARY | 2020-02-04 16:42 | XMS REPORT | Summary of Care ---
:1950 Author Organization [facility] Address [address] [place] [address] Care Team Providers Name Role Phone Casey Adkins Primary Care Provider Encounter Details Date Type Department Care Team Description 12/13/2019 Letter (Out) ACCESS CENTER Asmita Sahni RN [address] [place] [phone] [place] [address] Allergies Active Allergy Reactions Severity Noted Date Comments Sulfa (Sulfonamide Antibiotics) Rash 7 documented as of this encounter (statuses as of 12/13/2019) Medications Medication Sig Dispensed Refills Start Date [...] as of this encounter (statuses as of 12/13/2019) Active Problems Problem Noted Date Nuclear senile cataract of both eyes 04/20/2019 Overview: Added automatically from request for elkin campbell [id number] documented as of this encounter (statuses as of 12/13/2019) Social History Tobacco Use Types Packs/Day Years [...] Description 12/21/2019 Office Visit Obstetrics & Gynecology Robert Dumas DNP, MICHAEL, JARED -BC [address] [place] [phone] 12/28/2019 Office Visit Obstetrics & Gynecology Robert Dumas DNP, MICHAEL, WHCNP -BC [address] [place] [address] [phone] Health Maintenance Due Date Last Done Comments [...] of this encounter Implants Implanted Type Area Lining Inserter Device Shelf Model / Serial Identifier Expiration / Lot Date Lens, Ab #Sn60wf - [id number] LENS Right: Ab 01/20/2023 SN60WF / Implanted: Qty: 1 on 09/26/2019 by Maulik William MD at [facility] Eye [id number] / 0000 Lens, Ab #[id number] - [id number] LENS Left: Eye Ab 11/21/2023 SN60WF / Implanted: Qty: 1 on 11/07/2019 by Maulik William MD at [facility] [id number] / 0000 documented as of this encounter Results Not on filedocumented in this encounter Insurance Payer Benefit Plan Subscriber ID Effective Phone Address Typ e / Group Dates [facility] [id number] 2016-Tracie [phone] [address] PPO/POS - OUT OF nt 87 [id number] [place] [address] MEDICARE MEDICARE PART [id number] 1996-Pres [phone] P. O. BO X Medicare A & B [facility] [id number] [place] [address] documented as of this encounter
--- OUTSIDE RECORDS SUMMARY | 2020-02-04 16:42 | XMS REPORT | Summary of Care ---
:1950 Author Organization [facility] Address [address] [place] [address] Care Team Providers Name Role Phone Casey Adkins Primary Care Provider Reason for Visit Reason Comments Follow-up PNE Encounter Details Date Type Department Care Team Description 12/31/2019 Office Visit [facility] Jan Dumas In continence of feces, unspecified fecal incontinence type (Primary Dx); Health Care, Clear N, DNP, ENROLLMENT ELIGIBILITY REPRESENTATIVE, Mixed st ress and urge [facility] [address] [place] [address] [address] [place] [phone] Allergies Active Allergy Reactions [...] Added automatically from request for elkin shannan [id number] documented as of this encounter (statuses as of 12/31/2019) Social History Tobacco Use Types Packs/Day Years Used Date Former Smoker Smokeless Tobacco: Never Used Alcohol Use Drinks/Week oz/Week Comments No Sex Assigned at Date Recorded Not on file documented as of this encounter Last Filed Vital Signs Vital Sign Reading Time Taken Comments Blood Pressure 139/85 12/31/2019 3:15 PM STEAMTABLE WORKER Pulse 61 12/31/2019 3:15 PM STEAMTABLE WORKER Temperature 36.7 C (98 F) 12/31/2019 3:15 PM STEAMTABLE WORKER Respiratory Rate 18 12/31/2019 3:15 PM STEAMTABLE WORKER Oxygen Saturation 97% 12/31/2019 3:15 PM STEAMTABLE WORKER Inhaled Oxygen Concentration - - Weight 58.2 kg (128 lb 6.4 oz) 12/31/2019 3:15 PM STEAMTABLE WORKER Height 152.4 cm (5') 12/31/2019 3:15 PM STEAMTABLE WORKER Body Mass Index 25.08 12/31/2019 3:15 PM STEAMTABLE WORKER documented in this encounter Progress Notes Ana Rader RN - 12/31/2019 2:00 PM CSTAssisted provider with PNE placement. an Dumas, MAVERICK, ENROLLMENT ELIGIBILITY REPRESENTATIVE, WHCNP-BC - 12/31/2019 2:00 PM Danyelle Beckman [...] MICHAEL, JARED -RICO [address] [place] [address] Health Maintenance Due Date Last Done Comments [...] of this encounter Implants Implanted Type Area Agricultural Pilot Device Shelf Model / Serial Identifier Expiration / Lot Date Lens, Ab #Sn60wf - [id number] LENS Right: Ab 01/20/2023 SN60WF / Implanted: Qty: 1 on 09/26/2019 by Maulik William MD at [facility] Eye [id number] / 0000 Lens, Ab #Sn60wf - [id number] LENS Left: Eye Ab 11/21/2023 SN60WF / Implanted: Qty: 1 on 11/07/2019 by Maulik William MD at [facility] [id number] / 0000 documented as of this encounter Results Not on filedocumented in this encounter Visit Diagnoses Diagnosis Incontinence of feces, unspecified fecal incontinence type - Primary Mixed stress and urge urinary incontinen ce Mixed incontinence urge and stress (male )(female) documented in this encounter Insurance Payer Benefit Plan Subscriber ID Effective Phone Address Typ e / Group Dates [facility] [id number] 2016-Prese [phone] [address] PPO/POS - OUT OF 87 [id number] [place] [address] MEDICARE MEDICARE PART [id number] 1996-Pres [phone] P. O. ANANTH X Medicare A & B ent 82 [id number] [place] [phone] (Work) documented as of this encounter
--- OUTSIDE RECORDS SUMMARY | 2020-02-04 16:42 | XMS REPORT | Summary of Care ---
:1950 Author Organization [facility] Address [address] [place] [address] Care Team Providers Name Role Phone Janusz Adkinsey Primary Care Provider Encounter Details Date Type Department Care Team Description 12/18/2019 Letter (Out) ACCESS CENTER Vinny Badillo MD [address] [place] [phone] [place], [place] [phone] Allergies Active Allergy Reactions Severity Noted Date Comments Sulfa (Sulfonamide Antibiotics) Rash 7 documented as of this encounter (statuses as of 12/18/2019) Medications Medication Sig Dispensed Refills Start Date [...] as of this encounter (statuses as of 12/18/2019) Active Problems Problem Noted Date Nuclear senile cataract of both eyes 04/20/2019 Overview: Added automatically from request for elkin campbell [id number] documented as of this encounter (statuses as of 12/18/2019) Social History Tobacco Use Types Packs/Day Years [...] 12/21/2019 Office Visit Obstetrics & Gynecology Robert Dumas, DNP, MANAGER OF MEDICAL, CNP -BC [address] [place] [phone] 12/28/2019 Office Visit Obstetrics & Gynecology Robert Dumas, DNP, MANAGER OF MEDICAL, WHCNP -BC [address] [place] [address] Health Maintenance Due Date Last [...] of this encounter Implants Implanted Type Area Director Of Anesthesia Services Device Shelf Model / Serial Identifier Expiration / Lot Date Lens, Ab #Sn60wf - [id number] LENS Right: Ab 01/20/2023 SN60WF / Implanted: Qty: 1 on 09/26/2019 by Maulik William MD at [facility] Eye [id number] / 0000 Lens, Ab #Sn60wf - [id number] LENS Left: Eye Ab 11/21/2023 SN60WF / Implanted: Qty: 1 on 11/07/2019 by Maulik William MD at [facility] [id number] / 0000 documented as of this encounter Results Not on filedocumented in this encounter Insurance Payer Benefit Plan Subscriber ID Effective Phone Address Typ e / Group Dates [facility] [id number] 2016-Tracie [phone] [address] PPO/POS - OUT OF nt 87 [id number] [place] [address] MEDICARE MEDICARE PART [id number] 1996-Pres [phone] P[address] ANANTH X Medicare A & B [facility] [id number] [place] [address] documented as of this encounter
--- OUTSIDE RECORDS SUMMARY | 2020-02-04 16:42 | XMS REPORT | Summary of Care ---
:[address] [facility] Address [address] [place] [address] Care Team Providers Name Role Phone Janusz Adkinsey Primary Care Provider Reason for Visit Reason Onset Date Comments POST-OP 12/31/2019 vomiting Encounter Details Date Type Department Care Team Description 12/31/2019 Nurse Triage ACCESS CENTER Stephanie Dempsey RN POST-OP (vomiting) [address] [place] [phone] Allergies Active Allergy Reactions Severity Noted Date Comments Sulfa (Sulfonamide Antibiotics) Rash 7 documented as of this encounter (statuses as of 01/01/2020) Medications Medication Sig Dispensed Refills Start Date [...] as of this encounter (statuses as of 01/01/2020) Active Problems Problem Noted Date Nuclear senile cataract of both eyes 04/20/2019 Overview: Added automatically from request for elkin campbell [id number] documented as of this encounter (statuses as of 01/01/2020) Social History Tobacco Use Types Packs/Day Years [...] 4 hours Protocols used: POST-OP SYMPTOMS AND [id number] Patient calls stating that she had a [...] 12/31/2019 8:51 PM CSTRegarding: PNE procedure in uro/climate change risk assessor clinic today, now has chills, nausea and vomited once ----- Message from Betty Palma sent at 12/31/2019 8:49 PM ADVERTISING SPECIALIST ----- Ramandeep Beckman is a 69 year old female PT is calling stating she had a procedure - PNE - in the uro/climate change risk assessor clinic and ever since has been feeling nauseas, vomited once and has the chills and is wanting to to know if this has something to do with the PNE documented in this encounter Plan of Treatment Date Type Specialty Care Team Description 01/07/2020 Office Visit Obstetrics & Gynecology Robert Dumas, DNP, HEALTH CARE / MEDICAL JOB TITLES, WHCNP -BC [address] [place] [address] Health Maintenance Due Date Last [...] of this encounter Implants Implanted Type Area Tire Balancer Device Shelf Model / Serial Identifier Expiration / Lot Date Lens, Ab #Sn60wf - [id number] LENS Right: Ab 01/20/2023 SN60WF / Implanted: Qty: 1 on 09/26/2019 by Maulik William MD at [facility] Eye [id number] / 0000 Lens, Ab #Sn60wf - [id number] LENS Left: Eye Ab 11/21/2023 SN60WF / Implanted: Qty: 1 on 11/07/2019 by Maulik William MD at [facility] [id number] / 0000 documented as of this encounter Results Not on filedocumented in this encounter Insurance Payer Benefit Plan Subscriber ID Effective Phone Address Typ e / Group Dates [facility] [id number] 2016-Prese [phone] [address] PPO/POS - OUT OF nt 87 [id number] [place] [address] MEDICARE MEDICARE PART [id number] 1996-Pres [phone] P. O[address] ANANTH X Medicare A & B ent 82 [id number] [place] [phone] documented as of this encounter
--- OUTSIDE RECORDS SUMMARY | 2020-02-04 16:43 | XMS REPORT | Summary of Care ---
:1950 Author Organization [facility] Address [address] [place] [address] Care Team Providers Name Role Phone Casey Adkins Primary Care Provider Reason for Visit Reason Comments Assessment Encounter Details Date Type Department Care Team Description 01/03/[address] [facility] nda N, Assessment Center- [facility] DNP, STEEL BUFFER, WHCNP- 2240 [facility] [address] [place], [place] [phone] [address] [phone] [place] [address] Allergies Active Allergy Reactions Severity Noted Date Comments Sulfa (Sulfonamide Antibiotics) Rash 7 documented as of this encounter (statuses as of 01/03/2020) Medications Medication Sig Dispensed Refills Start Date [...] as of this encounter (statuses as of 01/03/2020) Active Problems Problem Noted Date Nuclear senile cataract of both eyes 04/20/2019 Overview: Added automatically from request for elkin campbell [id number] documented as of this encounter (statuses as of 01/03/2020) Social History Tobacco Use Types Packs/Day Years Used Date Former Smoker Smokeless Tobacco: Never Used Alcohol Use Drinks/Week oz/Week Comments No Sex Assigned at Date Recorded Not on file documented as of this encounter Last Filed Vital Signs Not on filedocumented in this encounter Miscellaneous Notes Telephone Encounter - Sam Meadows RN - 01/03/2020 10:55 AM CSTRouted to uro bounty trapper pool elephone Encounter - Domonique Fontaine - 01/03/2020 10:45 AM HOME HEALTH AIDE Ramandeep Beckman is a 69 year old female patient calling not sure what she is suppose to do until herappointment on Tuesday. Please call [phone] documented in this encounter Plan of Treatment Date Type Specialty Care Team Description 01/07/2020 Office Visit Obstetrics & Gynecology Robert Dumas, DNP, STEEL BUFFER, WHCNP -BC [address] [facility] [place] [address] Health Maintenance Due Date Last [...] of this encounter Implants Implanted Type Area Surgical Lead Device Shelf Model / Serial Identifier Expiration / Lot Date Lens, Ab #Sn60wf - [id number] LENS Right: Ab 01/20/2023 SN60WF / Implanted: Qty: 1 on 09/26/2019 by Maulik William MD at [facility] Eye [id number] / 0000 Lens, Ab #Sn60wf - [id number] LENS Left: Eye Ab 11/21/2023 SN60WF / Implanted: Qty: 1 on 11/07/2019 by Maulik William MD at [facility] [id number] / 0000 documented as of this encounter Results Not on filedocumented in this encounter Insurance Payer Benefit Plan Subscriber ID Effective Phone Address Typ e / Group Dates [facility] [id number] 2016-Prese [phone] [address] PPO/POS - OUT OF 87 [id number] [place] [address] MEDICARE MEDICARE PART [id number] 1996-Pres [phone] P. O. ANANTH X Medicare A & B [facility] 82 [id number] [place] [phone] documented as of this encounter
--- OUTSIDE RECORDS SUMMARY | 2020-02-04 16:43 | XMS REPORT | Summary of Care ---
:1950 Author Organization [facility] Address [address] [place] [address] Care Team Providers Name Role Phone Casey Adkins Primary Care Provider Encounter Details Date Type Department Care Team Description 12/31/2019 Orders Only [facility] Doctor Unassigned, [address] [facility] [place] [address] [address] [place] [address] Allergies Active Allergy Reactions Severity Noted Date [...] Added automatically from request for elkin shannan [id number] documented as of this encounter (statuses as of 01/03/2020) Social History Tobacco Use Types Packs/Day Years Used Date Former Smoker Smokeless Tobacco: Never Used Alcohol Use Drinks/Week oz/Week Comments No Sex Assigned at Date Recorded Not on file documented as of this encounter Last Filed Vital Signs Not on filedocumented in this encounter Plan of Treatment Date Type Specialty Care Team Description 01/03/2020 Office Visit Obstetrics & Gynecology Robert Dumas DNP, BAGGING MACHINE OPERATOR, [facility] -BC [address] [place] [phone] 01/07/2020 Office Visit Obstetrics & Gynecology Robert Dumas DNP, MICHAEL, [facility] [address] [place] [phone] Health Maintenance Due Date Last Done Comments [...] of this encounter Implants Implanted Type Area Reinsurance Claims Analyst Device Shelf Model / Serial Identifier Expiration / Lot Date Lens, Ab #Sn60wf - [id number] LENS Right: Ab 01/20/2023 SN60WF / Implanted: Qty: 1 on 09/26/2019 by Maulik William MD at [facility] Eye [id number] / 0000 Lens, Ab #Sn60wf - [id number] LENS Left: Eye Ab 11/21/2023 SN60WF / Implanted: Qty: 1 on 11/07/2019 by Maulik William MD at [facility] [id number] / 0000 documented as of this encounter Procedures Procedure Name Priority Date/Time Associated Diagnosis Comme nts DISCLOSURE AND CONSENT, Routine 12/31/2019 12:01 AM MEDICAL AND SURGICAL ORGANIZATIONAL DEVELOPMENT DIRECTOR PROCEDURES documented in this encounter Results Not on filedocumented in this encounter Insurance Payer Benefit Plan Subscriber ID Effective Phone Address Typ e / Group Dates [employer] [place] [employer] [place] [id number] 2016-Tracie [phone] [address] PPO/POS - OUT OF nt 87 [id number] [place] [address] MEDICARE MEDICARE PART [id number] 1996-Pres [phone] P[address] ANANTH X Medicare A & B ent 82 [id number] [place] [phone] documented as of this encounter
--- OUTSIDE RECORDS SUMMARY | 2020-02-04 16:43 | XMS REPORT | Summary of Care ---
:1950 Author Organization [facility] Address [address] [place] [address] Care Team Providers Name Role Phone Casey Adkins Primary Care Provider Reason for Visit Reason Comments Follow-up PNE pull Encounter Details Date Type Department Care Team Description [facility] urge Health Care, Clear N, DNP, ORE MIXER, [facility] [address] [place] [address] [address] [place] [phone] Allergies Active Allergy Reactions Severity Noted Date Comments Sulfa (Sulfonamide Antibiotics) Rash 7 documented as of this encounter (statuses as of 01/16/2020) Medications Medication Sig Dispensed Refills Start Date [...] mg mouth 2 (two) tablet times daily. trospium 20 mg Take 1 tablet by 40 tablet 2 01/07/2020 Active tabletIndications: mouth 2 (two) Mixed stress and urge times daily. urinary incontinence documented as of this encounter (statuses as of 01/16/2020) Active Problems Problem Noted Date Nuclear senile cataract of both eyes 04/20/2019 Overview: Added automatically from request for elkin shannan [id number] documented as of this encounter (statuses as of 01/16/2020) Social History Tobacco Use Types Packs/Day Years Used Date Former Smoker Smokeless Tobacco: Never Used Alcohol Use Drinks/Week oz/Week Comments No Sex Assigned at Date Recorded Not on file COVID-19 Exposure Response Date Recorded In the last month, have you been in contact with No / Unsure 01/07/2020 2:29 PM CAMPUS DIRECTOR someone who was confirmed or suspected to have Coronavirus / COVID-19? documented as of this encounter Last Filed Vital Signs Vital Sign Reading Time Taken Comments Blood Pressure 138/76 01/07/2020 2:30 PM CAMPUS DIRECTOR Pulse 63 01/07/2020 2:30 PM CAMPUS DIRECTOR Temperature 36.4 C (97.6 F) 01/07/2020 2:30 PM CAMPUS DIRECTOR Respiratory Rate 18 01/07/2020 2:30 PM CAMPUS DIRECTOR Oxygen Saturation 98% 01/07/2020 2:30 PM CAMPUS DIRECTOR Inhaled Oxygen Concentration - - Weight 58.2 kg (128 lb 3.2 oz) 01/07/2020 2:30 PM CAMPUS DIRECTOR Height 154.9 cm (5' 1") 01/07/2020 2:30 PM CAMPUS DIRECTOR Body Mass Index 24.22 01/07/2020 2:30 PM CAMPUS DIRECTOR documented in this encounter Progress Notes Jan Dumas DNP, MICHAEL, SOFIA - 01/07/2020 2:30 PM Danyelle Beckman is a 69 year old female here for PNE lead removal. Pt had basic evaluation implant on 12/31/19 with PNE lead placement. Her baseline bladder summary was: Voids per day- 10 Voids per night- 5 Urgency(1-5)- 5 Leaks per day- 5 Pads per day-5 REVIEW OF SYSTEMS: Denies chest pain, shortness of breath, nausea, vomiting, diarrhea, fever or chills PHYSICAL EXAM: Alert, oriented and no apparent distress HEENT: pupils equal, round and reactive to light Respiratory: respirations even and unlabored Abomen: soft, nondistended Extremities: no clubbing, cyanosis or edema Skin: no rash or skin breakdown at lead sites, skin irritation from adhesive to the right of midline Procedure: test kitchen home economist removed without difficulty Band-Aid applied to site. A/P Mixed incontinence Comment: Discussed results of evaluation with patient. Results of Basic evaluation: Voids per day- 5 Voids per night- 5 Urgency(1-5)- 5 Leaks per day- 5 Pads per day- 5 Overall less than than 50 % improvement. Plan: After multiple attempts with granulizing machine operator, patient does not report improvement with PNE. Will not move forward with rechargeable/charge free system. Plan for trial of sanctura 20mg BID. Patient to keep voiding diary and return to clinic in 1 month. Agata Graf - 01/07/2020 2:30 PM CSTPer order Post void residual by bladder scan = 14 ml, results reported to provider. documented in this encounter Plan of Treatment Date Type Specialty Care Team Description 02/04/2020 Office Visit Obstetrics & Gynecology Robert Dumas, DNP, ORE MIXER, WHCNP -BC [address] [place] [address] Health Maintenance Due Date Last [...] of this encounter Implants Implanted Type Area Awning Hanger Helper Device Shelf Model / Serial Identifier Expiration / Lot Date Lens, Ab #Sn60wf - [id number] LENS Right: Ab 01/20/2023 SN60WF / Implanted: Qty: 1 on 09/26/2019 by Maulik William MD at [facility] Eye [id number] / 0000 Lens, Ab #Sn60wf - [id number] LENS Left: Eye Ab 11/21/2023 SN60WF / Implanted: Qty: 1 on 11/07/2019 by Maulik William MD at [facility] [id number] / 0000 documented as of this encounter Procedures Procedure Name Priority Date/Time Associated Diagnosis Comme nts POCT URINALYSIS Routine 01/07/2020 3:05 PM Mixed stress and u rge Results for this CAMPUS DIRECTOR urinary incontinence procedu re are in the results section. documented in this encounter Results POCT URINALYSIS W SPECIFIC GRAVITY (01/07/2020 3:05 PM CAMPUS DIRECTOR) Pathologist Sig nature POCT U SP GRAV 1.005 1.005 - 1.025 mg/dl POCT PH U 7 5 - 8 mg/dl POCT U LEUK EST neg Negative - Negative POCT U NIT neg Negative - Negative POCT U PROT neg Negative - Negative POCT U GLU normal Negative - Negative POCT U KETONE neg Negative - Negative POCT U UROBILI normal 0.2 - 1 mg/dl POCT U BILI neg Negative - Negative POCT U BLD neg Negative - Negative POCT U COLOR colorless POCT U APPEAR clear Specimen Urine - URINE, CLEAN CATCH documented in this encounter Visit Diagnoses Diagnosis Mixed stress and urge urinary incontinen ce - Primary Mixed incontinence urge and stress (male )(female) documented in this encounter Insurance Payer Benefit Plan Subscriber ID Effective Phone Address Typ e / Group Dates [facility] [id number] 2016-Prese [phone] [address] PPO/POS - OUT OF nt [id number] [place] [address] MEDICARE MEDICARE PART [id number] 1996-Pres [phone] P. O[address] ANANTH X Medicare A & B ent 82 [id number] [place] [phone] (Work) documented as of this encounter
--- OUTSIDE RECORDS SUMMARY | 2020-02-04 16:43 | XMS REPORT | Summary of Care ---
:1950 Author Organization [facility] Address [address] [place] [address] Care Team Providers Name Role Phone Casey Adkins Primary Care Provider Reason for Visit Reason Comments Follow-up PNE pull Encounter Details Date Type Department Care Team Description [facility]/07[facility] Health Care, Clear N, DNP, TECHNICAL SUPPORT TECHNICIAN, [facility] [address] [place] [address] [address] [place] [phone] Allergies Active Allergy Reactions [...] Added automatically from request for elkin shannan [id number] documented as of this encounter (statuses as of 01/16/2020) Social History Tobacco Use Types Packs/Day Years Used Date Former Smoker Smokeless Tobacco: Never Used Alcohol Use Drinks/Week oz/Week Comments No Sex Assigned at Date Recorded Not on file COVID-19 Exposure Response Date Recorded In the last month, have you been in contact with No / Unsure 01/07/2020 2:29 PM COMMUNICATION SPECIALIST someone who was confirmed or suspected to have Coronavirus / COVID-19? documented as of this encounter Last Filed Vital Signs Vital Sign Reading Time Taken Comments Blood Pressure 138/76 01/07/2020 2:30 PM COMMUNICATION SPECIALIST Pulse 63 01/07/2020 2:30 PM COMMUNICATION SPECIALIST Temperature 36.4 C (97.6 F) 01/07/2020 2:30 PM COMMUNICATION SPECIALIST Respiratory Rate 18 01/07/2020 2:30 PM COMMUNICATION SPECIALIST Oxygen Saturation 98% 01/07/2020 2:30 PM COMMUNICATION SPECIALIST Inhaled Oxygen Concentration - - Weight 58.2 kg (128 lb 3.2 oz) 01/07/2020 2:30 PM COMMUNICATION SPECIALIST Height 154.9 cm (5' 1") 01/07/2020 2:30 PM COMMUNICATION SPECIALIST Body Mass Index 24.22 01/07/2020 2:30 PM COMMUNICATION SPECIALIST documented in this encounter Progress Notes Jan [...] adhesive to the right of midline Procedure: fuel cell test engineer removed without difficulty Band-Aid applied to site. A/P Mixed incontinence Comment: Discussed results of evaluation with patient. Results of Basic evaluation: Voids per day- 5 Voids per night- 5 Urgency(1-5)- 5 Leaks per day- 5 Pads per day- 5 Overall less than than 50 % improvement. Plan: After multiple attempts with bright cutter, patient does not report improvement with PNE. [...] Visit Obstetrics & Gynecology Robert Dumas, DNP, TECHNICAL SUPPORT TECHNICIAN, WHCNP -BC [address] [place] [address] Health Maintenance Due Date Last [...] of this encounter Implants Implanted Type Area Power Plant Operations Manager Device Shelf Model / Serial Identifier Expiration / Lot Date Lens, Ab #Sn60wf - [id number] LENS Right: Ab 01/20/2023 SN60WF / Implanted: Qty: 1 on 09/26/2019 by Maulik William MD at [facility] Eye [id number] / 0000 Lens, Ab #Sn60wf - [id number] LENS Left: Eye Ab 11/21/2023 SN60WF / Implanted: Qty: 1 on 11/07/2019 by Maulik William MD at [facility] [id number] / 0000 documented as of this encounter Procedures Procedure Name Priority Date/Time Associated Diagnosis Comme nts POCT URINALYSIS Routine 01/07/2020 3:05 PM Mixed stress and u rge Results for this COMMUNICATION SPECIALIST urinary incontinence procedu re are in the results section. documented in this encounter Results POCT URINALYSIS W SPECIFIC GRAVITY (01/07/2020 3:05 PM COMMUNICATION SPECIALIST) Pathologist Sig nature POCT U SP GRAV [...] Phone Address Typ e / Group Dates [facility] [id number] 2016-Prese [phone] [address] PPO/POS - OUT OF nt 87 [id number] [place] [address] MEDICARE MEDICARE PART [id number] 1996-Pres [phone] [address] A[address] X Medicare A & B ent 82 [id number] [place] [phone] (Work) documented as of this encounter
--- OUTSIDE RECORDS SUMMARY | 2020-02-04 16:43 | XMS REPORT | Summary of Care ---
:1950 Author Organization [facility] Address [address] [place] [address] Care Team Providers Name Role Phone Casey Adkins Primary Care Provider Reason for Visit Reason Comments Assessment Encounter Details Date Type Department Care Team Description 01/03/2020 Telephone [facility] nda N, Assessment Center- [facility] DNP, FOUNDATION DIRECTOR, WHCNP- [facility] [address] [place], [place] [phone] IRIS N [phone] [place] [address] Allergies Active Allergy Reactions Severity [...] Added automatically from request for elkin campbell [id number] documented as of this encounter (statuses as of 01/03/2020) Social History Tobacco Use Types Packs/Day Years Used Date Former Smoker Smokeless Tobacco: Never Used Alcohol Use Drinks/Week oz/Week Comments No Sex Assigned at Date Recorded Not on file documented as of this encounter Last Filed Vital Signs Not on filedocumented in this encounter Miscellaneous Notes Telephone Encounter - Ana Rader RN - 01/03/2020 11:21 AM CSTIdentified patient by name and . Patient reports her PNE device is not turning and it started given a communication error. States she went to the bathroom and the cord to the device came off and shetried to connect it back, but unsure if she did it right. Notified provider and instructed for patient to come in today to be evaluated. Informed patient and states she can come into clinic at 3:30pm. S cheduled patient. elephone Encounter - Sam Meadows RN - 01/03/2020 10:55 AM CSTRouted to uro rental clerk tool and equipment pool elephone Encounter - Domonique Fontaine - 01/03/2020 10:45 AM Danyelle Beckman is a 69 year old female patient calling not sure what she is suppose to do until herappointment on Tuesday. Please call [phone] signed by Domonique Fontaine at 01/03/2020 10:47 AM GROUP BURNER MACHINE documented in this encounter Plan of Treatment Date Type Specialty Care Team Description 01/03/2020 Office Visit Obstetrics & Gynecology Robert Dumas, MAVERICK, MICHAEL, [facility] - [address] [place] [phone] 01/07/2020 Office Visit Obstetrics & Gynecology Robert Dumas DNP, MICHAEL, [facility] - [address] [place] [phone] Health Maintenance Due Date Last Done Comments [...] of this encounter Implants Implanted Type Area Sheet Sewer Device Shelf Model / Serial Identifier Expiration / Lot Date Lens, Ab #Sn60wf - [id number] LENS Right: Ab 01/20/2023 SN60WF / Implanted: Qty: 1 on 09/26/2019 by Maulik William MD at [facility] Eye [id number] / 0000 Lens, Ab #Sn60wf - [id number] LENS Left: Eye Ab 11/21/2023 SN60WF / Implanted: Qty: 1 on 11/07/2019 by Maulik William MD at [facility] [id number] / 0000 documented as of this encounter Results Not on filedocumented in this encounter Insurance Payer Benefit Plan Subscriber ID Effective Phone Address Typ e / Group Dates [facility] [id number] 2016-Tracie [phone] [address] PPO/POS - OUT OF 87 [id number] [place] [address] MEDICARE MEDICARE PART [id number] 1996-Pres [phone] [address] ANANTH X Medicare A & B [facility] 82 [id number] [place] [phone] documented as of this encounter
--- OUTSIDE RECORDS SUMMARY | 2020-02-04 16:43 | XMS REPORT | Summary of Care ---
:1950 Author Organization [facility] Address [address] [place] [address] Care Team Providers Name Role Phone Janusz Adkinsey Primary Care Provider Reason for Visit Reason Onset Date Comments POST-OP 12/31/2019 vomiting Encounter Details Date Type Department Care Team Description 12/31/2019 Nurse Triage [facility] Stephanie Dempsey RN POST-OP (vomiting) [address] [place] [phone] Allergies Active Allergy Reactions Severity Noted Date [...] Added automatically from request for elkin campbell [id number] documented as of this encounter (statuses as of 01/01/2020) Social History Tobacco Use Types Packs/Day Years Used Date Former Smoker Smokeless Tobacco: Never Used Alcohol Use Drinks/Week oz/Week Comments No Sex Assigned at Date Recorded Not on file documented as of this encounter Last Filed Vital Signs Not on filedocumented in this encounter Miscellaneous Notes Telephone Encounter - Jan Dumas, DNP, SIX SIGMA PROJECT MANAGER, WHCNP-BC - 12/31/2019 8:51 PM CSTCalled patient and id'd by name and . She reports she felt nauseas. She states she went to lunch and she went home and vomited. She also states she is also having diarrhea until 0100 this morning. She reports she took some imodium and the diarrhea subsided. She also reports she turned the device off and was able to sleep. She states she is feeling better. She states she desires to turn the device back on to assess if her symptoms are being caused by the SNM. Patient also reports having MS and her symptoms may be caused by that. Patient told she can turn the device back on but if N/V sx restart she can come in to clinic to havethe SNM temporary lead removed. Patient verbally understands and agrees. elephone Encounter - Stephanie Dempsey RN - [...] 4 hours Protocols used: POST-OP SYMPTOMS AND [id number] Patient calls stating that she had a [...] 12/31/2019 8:51 PM CSTRegarding: PNE procedure in uro/unarmed security officer clinic today, now has chills, nausea and vomited once ----- Message from Betty Palma sent at 12/31/2019 8:49 PM PUBLISHER ASSISTANT ----- Ramandeep Beckman is a 69 year old female PT is calling stating she had a procedure - PNE - in the uro/unarmed security officer clinic and ever since has been feeling nauseas, vomited once and has the chills and is wanting to to know if this has something to do with the PNE documented in this encounter Plan of Treatment Date Type Specialty Care Team Description 01/07/2020 Office Visit Obstetrics & Gynecology Robert Dumas, DNP, SIX SIGMA PROJECT MANAGER, WHCNP -BC [address] [place] [address] Health Maintenance Due Date Last [...] of this encounter Implants Implanted Type Area Family Preservation Officer Device Shelf Model / Serial Identifier Expiration / Lot Date Lens, Ab #Sn60wf - [id number] LENS Right: Ab 01/20/2023 SN60WF / Implanted: Qty: 1 on 09/26/2019 by Maulik William MD at [facility] Eye [id number] / 0000 Lens, Ab #Sn60wf - [id number] LENS Left: Eye Ab 11/21/2023 SN60WF / Implanted: Qty: 1 on 11/07/2019 by Maulik William MD at [facility] [id number] / 0000 documented as of this encounter Results Not on filedocumented in this encounter Insurance Payer Benefit Plan Subscriber ID Effective Phone Address Typ e / Group Dates [facility] [id number] 2016-Prese [phone] [address] PPO/POS - OUT OF 87 [id number] [place] [address] MEDICARE MEDICARE PART [id number] 1996-Pres [phone] P[address] ANANTH X Medicare A & B ent 82 [id number] [place] [phone] documented as of this encounter
--- OUTSIDE RECORDS SUMMARY | 2020-02-04 16:43 | XMS REPORT | Summary of Care ---
:1950 Author Organization [facility] Address [address] [place] [address] Care Team Providers Name Role Phone Casey Adkins Primary Care Provider Reason for Visit Reason Comments Other PNE Complications Encounter Details Date Type Department Care Team Description 01/04/[address] [facility] AlesiaJan gannon In continence of feces, unspecified fecal incontinence type (Primary Dx); Health Care, Clear N, DNP, EVENT PLANNER, Mixed st ress and urge urinary incontinence [facility] [address] [place] [address] [address] [place] [phone] Allergies Active Allergy Reactions Severity Noted Date Comments Sulfa (Sulfonamide Antibiotics) Rash 7 documented as of this encounter (statuses as of 01/11/2020) Medications Medication Sig Dispensed Refills Start Date [...] as of this encounter (statuses as of 01/11/2020) Active Problems Problem Noted Date Nuclear senile cataract of both eyes 04/20/2019 Overview: Added automatically from request for elkin shannan [id number] documented as of this encounter (statuses as of 01/11/2020) Social History Tobacco Use Types Packs/Day Years Used Date Former Smoker Smokeless Tobacco: Never Used Alcohol Use Drinks/Week oz/Week Comments No Sex Assigned at Date Recorded Not on file COVID-19 Exposure Response Date Recorded In the last month, have you been in contact with No / Unsure 01/07/2020 2:29 PM SENIOR AIR DIRECTOR someone who was confirmed or suspected to have Coronavirus / COVID-19? documented as of this encounter Last Filed Vital Signs Vital Sign Reading Time Taken Comments Blood Pressure 158/90 01/04/2020 9:08 AM SENIOR AIR DIRECTOR Pulse 56 01/04/2020 9:08 AM SENIOR AIR DIRECTOR Temperature 36.6 C (97.8 F) 01/04/2020 9:08 AM SENIOR AIR DIRECTOR Respiratory Rate 18 01/04/2020 9:08 AM SENIOR AIR DIRECTOR Oxygen Saturation 97% 01/04/2020 9:08 AM SENIOR AIR DIRECTOR Inhaled Oxygen Concentration - - Weight 57.4 kg (126 lb 9.6 oz) 01/04/2020 9:08 AM SENIOR AIR DIRECTOR Height 152.4 cm (5') 01/04/2020 9:08 AM SENIOR AIR DIRECTOR Body Mass Index 24.72 01/04/2020 9:08 AM SENIOR AIR DIRECTOR documented in this encounter Progress Notes Jan Dumas DNP, MICHAEL, SOFIA - 01/04/2020 9:00 AM Danyelle Beckman is a 69 year old female here for PNE lead assessment. Patient called and stated she was unable to get device powered back on and she thought she pulled the lead out. Upon assessment, lead in place and dressing intact. External battery disconnected from cord and powered off. Device reconnected and powered on. Patient feeling stimulation in bicycle seat area comfortably. REVIEW OF SYSTEMS: Denies Chest pain, Shortness of breath, nausea, vomiting, diarrhea, fever or chills PHYSICAL EXAM: Alert, oriented and no apparent distress HEENT: pupils equal, round and reactive to light CV: Regular rate and rhythm Respiratory: Respirations even and unlabored Abomen: soft, nondistended Extremities: No clubbing, cyanosis or edema Skin: No rash or skin breakdown at lead sites, A/P Mixed incontinence Comment: SNM remain in place at this time to complete 7 day trial. Plan: RTC on Tuesday for results and POC. Ana Price RN - 01/04/2020 9:00 AM CSTPatient to get Cardiac Clearance from Neonatal Specialist. Patient has appointment scheduled for . Provided Cardiology Clearance letter for patient to provide to Neonatal Specialist. [facility] [address] [email or web address] signed by Ana Rader RN at 01/04/2020 12:08 PM CSTdocumented in this encounter Plan of Treatment Date Type Specialty Care Team Description 02/04/2020 Office Visit Obstetrics & Gynecology Robert Dumas, DNP, EVENT PLANNER, WHCNP -BC [address] [place] [address] Health Maintenance Due Date Last [...] of this encounter Implants Implanted Type Area Silo Operator Device Shelf Model / Serial Identifier Expiration / Lot Date Lens, Ab #Sn60wf - [id number] LENS Right: Ab 01/20/2023 SN60WF / Implanted: Qty: 1 on 09/26/2019 by Maulik William MD at [facility] Eye [id number] / 0000 Lens, Ab #Sn60wf - [id number] LENS Left: Eye Ab 11/21/2023 SN60WF / Implanted: Qty: 1 on 11/07/2019 by Maulik William MD at [facility] [id number] / 0000 documented as of this encounter Results Not on filedocumented in this encounter Visit Diagnoses Diagnosis Incontinence of feces, unspecified fecal incontinence type - Primary Mixed stress and urge urinary incontinen ce Mixed incontinence urge and stress (male )(female) documented in this encounter Insurance Payer Benefit Plan Subscriber ID Effective Phone Address Typ e / Group Dates [facility] [id number] 2016-Prese [phone] [address] PPO/POS - OUT OF nt 87 [id number] [place] [address] MEDICARE MEDICARE PART [id number] 1996-Pres [phone] P[address] ANANTH X Medicare A & B ent 82 [id number] [place] [phone] (Work) documented as of this encounter
--- OUTSIDE RECORDS SUMMARY | 2020-02-04 16:43 | XMS REPORT | Summary of Care ---
:1950 Author Organization [facility] Address [address] [place] [address] Care Team Providers Name Role Phone Casey Adkins Primary Care Provider Reason for Visit Reason Comments Other PNE Complications Encounter Details Date Type Department Care Team Description 01/04/2020 Office Visit [facility] Women's AlesiaJan gannon In continence of feces, unspecified fecal incontinence type (Primary Dx); Health Care, Clear N, DNP, INDEPENDENT DISTRIBUTOR, Mixed st ress and urge [facility]ence [facility] [address] [place] [address] [address] [place] [phone] Allergies Active Allergy Reactions [...] Added automatically from request for elkin shannan [id number] documented as of this encounter (statuses as of 01/11/2020) Social History Tobacco Use Types Packs/Day Years Used Date Former Smoker Smokeless Tobacco: Never Used Alcohol Use Drinks/Week oz/Week Comments No Sex Assigned at Date Recorded Not on file COVID-19 Exposure Response Date Recorded In the last month, have you been in contact with No / Unsure 01/07/2020 2:29 PM RESPIRATORY THERAPY ASSISTANT someone who was confirmed or suspected to have Coronavirus / COVID-19? documented as of this encounter Last Filed Vital Signs Vital Sign Reading Time Taken Comments Blood Pressure 158/90 01/04/2020 9:08 AM RESPIRATORY THERAPY ASSISTANT Pulse 56 01/04/2020 9:08 AM RESPIRATORY THERAPY ASSISTANT Temperature 36.6 C (97.8 F) 01/04/2020 9:08 AM RESPIRATORY THERAPY ASSISTANT Respiratory Rate 18 01/04/2020 9:08 AM RESPIRATORY THERAPY ASSISTANT Oxygen Saturation 97% 01/04/2020 9:08 AM RESPIRATORY THERAPY ASSISTANT Inhaled Oxygen Concentration - - Weight 57.4 kg (126 lb 9.6 oz) 01/04/2020 9:08 AM RESPIRATORY THERAPY ASSISTANT Height 152.4 cm (5') 01/04/2020 9:08 AM RESPIRATORY THERAPY ASSISTANT Body Mass Index 24.72 01/04/2020 9:08 AM RESPIRATORY THERAPY ASSISTANT documented in this encounter Progress Notes Jan [...] AM CSTPatient to get Cardiac Clearance from Demographer. Patient has appointment scheduled for . Provided Cardiology Clearance letter for patient to provide to Demographer. [facility] [address] [email or web address] signed by Ana Rader RN at 01/04/2020 12:08 PM CSTdocumented in this encounter Plan of Treatment Date Type Specialty Care Team Description 02/04/2020 Office Visit Obstetrics & Gynecology Robert Dumas, DNP, INDEPENDENT DISTRIBUTOR, WHCNP -BC [address] [place] [address] Health Maintenance Due Date Last [...] of this encounter Implants Implanted Type Area Supply Controller Device Shelf Model / Serial Identifier Expiration / Lot Date Lens, Ab #Sn60wf - [id number] LENS Right: Ab 01/20/2023 SN60WF / Implanted: Qty: 1 on 09/26/2019 by Maulik William MD at [facility] Eye [id number] / 0000 Lens, Ab #Sn60wf - [id number] LENS Left: Eye Ab 11/21/2023 SN60WF / Implanted: Qty: 1 on 11/07/2019 by Maulik William MD at [facility] [id number] / 0000 documented as of this encounter Results Not on filedocumented in this encounter Visit Diagnoses Diagnosis Incontinence of feces, unspecified fecal incontinence type - Primary Mixed stress and urge urinary incontinen ce Mixed incontinence urge and stress (male )(female) documented in this encounter Insurance Payer Benefit Plan Subscriber ID Effective Phone Address Typ e / Group Dates [facility] [id number] 2016-Prese [phone] [address] PPO/POS - OUT OF nt 87 [id number] [place] [address] MEDICARE MEDICARE PART [id number] 1996-Pres [phone] P[address] ANANTH X Medicare A & B ent 82 [id number] [place] [phone] (Work) documented as of this encounter
--- NOTE | 2020-02-04 17:05 | RAD REPORT ---
EXAM DESCRIPTION: CT - [id number] - 02/04/2020 4:57 pm CLINICAL HISTORY: Trauma, head and neck injury. fall COMPARISON: No comparisons TECHNIQUE: Axial 5 mm thick images of the head were obtained. Axial 2 mm thick images of the cervical spine were obtained with sagittal and coronal reconstruction images generated and reviewed. All CT scans are performed using dose optimization technique as appropriate and may include automated exposure control or mA/KV adjustment according to patient size. FINDINGS: CT HEAD WITHOUT CONTRAST: No acute hemorrhage, hydrocephalus or extra-axial collection is identified.Advanced generalized brain atrophy is present with moderate periventricular and deep white matter chronic microvascular ischemi c changes.No areas of brain edema or midline shift. The paranasal sinuses and mastoids are clear.The calvarium is intact. CT CERVICAL SPINE WITHOUT CONTRAST: No fracture or subluxation.Moderate midcervical degenerative change.No prevertebral soft tissues swel ling is identified. IMPRESSION: No acute intracranial or cervical spine findings.
--- NOTE | 2020-02-04 17:24 | EDPHYS ---
Physician Documentation [facility] Name: Ramandeep Gooden Age: 69 yrs Sex: Female : 1950 Arrival Date: 02/04/2020 Time: 16:28 Bed 7 Private MD: ED Physician Farhat Walker HPI: 02/03 17:21 This 69 yrs old Female presents to ER via EMS with complaints of Fall Injury. jmm 17:21 Details of fall: The patient fell from an upright position. Onset: The symptoms/episode jmm began/occurred acutely, just prior to arrival. Associated injuries: The patient sustained injury to the head. The patient has not experienced similar symptoms in the past. Patient states she slipped backwards when attempting to pull open a door. Denies LOC, vomiting, behavior change. . Historical: - Allergies: 16:30 MILK PRODUCTS; jl7 16:30 Sulfa (Sulfonamide Antibiotics); jl7 - Home Meds: 16:56 levothyroxine oral [Active]; lisinopril Oral [Active]; Paxil Oral [Active]; jl7 - PMHx: 16:30 Diabetes - NIDDM; Hypertension; Hypothyroidism; Multiple Sclerosis; jl7 - PSHx: 16:30 Hysterectomy; Cholecystectomy; jl7 - Immunization history:: Adult Immunizations up to date. - Immunization history: Last tetanus immunization: unknown. - Social history:: Smoking status: Patient denies any tobacco usage or history of. ROS: 17:21 Constitutional: Negative for fever, chills, and weight loss, Cardiovascular: Negative jmm for chest pain, palpitations, and edema, Respiratory: Negative for shortness of breath, cough, wheezing, and pleuritic chest pain. 17:21 Neuro: Positive for headache. 17:21 All other systems are negative. Exam: 17:21 Constitutional: This is a well developed, well nourished patient who is awake, alert, jmm and in no acute distress. 17:21 Eyes: EOMI, no conjunctival erythema appreciated ENT: Moist Mucus Membranes Neck: Trachea midline, Supple Chest/axilla: Normal chest wall appearance and motion. Cardiovascular: Regular rate and rhythm. No edema appreciated Respiratory: Normal respirations, no respiratory distress appreciated Abdomen/GI: Non distended, soft Back: Normal ROM Skin: General appearance color normal MS/ Extremity: Moves all extremities, no obvious deformities appreciated, no edema noted to the lower extremities 17:21 Head/face: small hematoma noted to the post scalp, no active bleeding, small puncture. 17:21 Neuro: Orientation: is normal, Mentation: is normal, Memory: is normal. 17:21 Psych: Behavior/mood is pleasant, anxious. Vital Signs: 16:31 BP 160 / 80; Pulse 62; Resp 14; Temp 97.7(TE); Pulse Ox 100% on R/A; jl7 17:15 BP 144 / 82; Pulse 60; Resp 17; Pulse Ox 100% ; jl7 Macario Coma Score: 16:31 Eye Response: spontaneous(4). Verbal Response: oriented(5). Motor Response: obeys jl7 commands(6). Total: 15. Trauma Score (Adult): 16:31 Eye Response: spontaneous(1); Verbal Response: oriented(1); Motor Response: obeys jl7 commands(2); Systolic BP: > 89 mm Hg(4); Respiratory Rate: 10 to 29 per min(4); [place] Score: 15; Trauma Score: 12 MDM: 17:18 Patient medically screened. [facility] 17:22 Data reviewed: vital signs, nurses notes. Counseling: I had a detailed discussion with jennifer the patient and/or guardian regarding: the historical points, exam findings, and any diagnostic results supporting the discharge/admit diagnosis, radiology results, the need for outpatient follow up, to return to the emergency department if symptoms worsen or persist or if there are any questions or concerns that arise at home. ED course: CT negative. Patient given head injury return precautions. Patient understood and agrees with the plan of care. . 02/03 16:34 Order name: CT Head C Spine; Complete Time: 17:13 [facility] Administered Medications: No medications were administered Disposition: 17:57 Co-signature as Attending Physician, Farhat Walker MD Did not see or evaluate patient. ps1 Available for consultation during the patient encounter. Signature for administrative purposes. . Disposition: 02/04/20 17:23 Discharged to Home. Impression: Unspecified injury of head. - Condition is Stable. - Discharge Instructions: Head Injury, Adult. - Medication Reconciliation Form, Thank You Letter, Antibiotic Education, Prescription Opioid Use form. - Follow up: Private Physician; When: 2 - 3 days; Reason: Recheck today's complaints, Continuance of care, Re-evaluation by your physician. Signatures: Dispatcher [employer] EDMS Berlin Navas PA PA jmm Leal, Jahala, RN RN jl7 Farhat Walker MD MD ps1 Corrections: (The following items were deleted from the chart) 17:32 17:23 02/04/2020 17:23 Discharged to Home. Impression: Unspecified injury of head. jl7 Condition is Stable. Forms are Medication Reconciliation Form, Thank You Letter, Antibiotic Education, Prescription Opioid Use. Follow up: Private Physician; When: 2 - 3 days; Reason: Recheck today's complaints, Continuance of care, Re-evaluation by your physician. jennifer
--- NOTE | 2020-02-04 17:24 | ER ---
Nurse's Notes [facility] Name: Ramandeep Gooden Age: 69 yrs Sex: Female : 1950 Arrival Date: 02/04/2020 Time: 16:28 Bed 7 Private MD: Diagnosis: Unspecified injury of head Presentation: 02/03 16:30 Coronavirus screen: Client denies travel out of the [place] in the last 14 days. At this jl7 time, the client does not indicate any symptoms associated with coronavirus-19. Ebola Screen: No symptoms or risks identified at this time. Initial Sepsis Screen: Does the patient meet any 2 criteria? RR > 20 per min. Does the patient have a suspected source of infection? No. Patient's initial sepsis screen is negative. Risk Assessment: Do you want to hurt yourself or someone else? Patient reports no desire to harm self or others. Onset of symptoms was February 04, 2020. 16:30 Method Of Arrival: EMS: [place] [id number] 16:30 Care prior to arrival: None. Mechanism of Injury: Fall from standing position. Trauma jl7 event details: Injury occurred in the [facility], Injury occurred: in a public building. Injury occurred: February 04, 2020. 16:30 Chief complaint: EMS [place] the [place], slipped and fell hitting the back of her [facility] head. Denies LOC. 16:31 Acuity: BLAINE 3 jl7 Trauma Activation: Not Applicable Physician: ED Physician; Name: ; Notified At: ; Arrived At: Physician: General Surgeon; Name: ; Notified At: ; Arrived At: Physician: Radiology; Name: ; Notified At: ; Arrived At: Physician: Respiratory; Name: ; Notified At: ; Arrived At: Physician: Lab; Name: ; Notified At: ; Arrived At: Historical: - Allergies: 16:30 MILK PRODUCTS; jl7 16:30 Sulfa (Sulfonamide Antibiotics); jl7 - Home Meds: 16:56 levothyroxine oral [Active]; lisinopril Oral [Active]; Paxil Oral [Active]; jl7 - PMHx: 16:30 Diabetes - NIDDM; Hypertension; Hypothyroidism; Multiple Sclerosis; jl7 - PSHx: 16:30 Hysterectomy; Cholecystectomy; jl7 - Immunization history:: Adult Immunizations up to date. - Immunization history: Last tetanus immunization: unknown. - Social history:: Smoking status: Patient denies any tobacco usage or history of. Screenin:32 Abuse screen: Denies threats or abuse. Denies injuries from another. Nutritional jl7 screening: No deficits noted. Tuberculosis screening: No symptoms or risk factors identified. 16:54 Fall Risk Fall in past 12 months (25 points). Total Trinh Fall Scale indicates No Risk jl7 (0-24 pts). Primary Survey: 16:30 NO uncontrolled hemorrhage observed. Breathing/Chest: Respiratory pattern: regular, jl7 Respiratory effort: spontaneous, unlabored, Chest inspection: symmetrical rise and fall of the chest. Circulation: Skin color: pale. Disability Alert. Exposure/Environment: There is no evidence of uncontrolled external bleeding. Obvious injury(ies) are noted at this time: hematoma and abrasion noted to right aspect of posterior scalp. 17:00 Reassessment Breathing/Chest Respiratory pattern Regular. jl7 Assessment: 16:30 General: Appears in no apparent distress. uncomfortable, Behavior is calm, cooperative, jl7 appropriate for age. Pain: Denies pain. Neuro: Level of Consciousness is awake, alert, obeys commands, Oriented to person, place, time, situation. Cardiovascular: Denies chest pain, Patient's skin is warm and dry. Respiratory: Airway is patent Respiratory effort is even, unlabored, Respiratory pattern is regular, symmetrical, Denies shortness of breath. GI: Patient currently denies nausea, vomiting. Derm: Skin is pink, warm \T\ dry. 16:55 Reassessment: Pt to CT via stretcher. jl7 Vital Signs: 16:31 BP 160 / 80; Pulse 62; Resp 14; Temp 97.7(TE); Pulse Ox 100% on R/A; jl7 17:15 BP 144 / 82; Pulse 60; Resp 17; Pulse Ox 100% ; jl7 Macario Coma Score: 16:31 Eye Response: spontaneous(4). Verbal Response: oriented(5). Motor Response: obeys jl7 commands(6). Total: 15. Trauma Score (Adult): 16:31 Eye Response: spontaneous(1); Verbal Response: oriented(1); Motor Response: obeys jl7 commands(2); Systolic BP: > 89 mm Hg(4); Respiratory Rate: 10 to 29 per min(4); Macario Score: 15; Trauma Score: 12 ED Course: 16:28 Patient arrived in ED. jl7 16:30 Arm band placed on. jl7 16:30 Patient maintains SpO2 saturation greater than 95% on room air. jl7 16:32 Triage completed. jl7 16:32 Patient has correct armband on for positive identification. Bed in low position. Call jl7 light in reach. Side rails up X2. Pulse ox on. NIBP on. Door closed. Head of bed elevated. 16:34 Berlin Navas PA is PHCP. [facility] 16:34 Farhat Walker MD is Attending Physician. [facility] 16:35 Thermoregulation: warm blanket given to patient. jl7 16:37 Fortunato Costello, RN is Primary Nurse. jl7 16:45 Wound care: to abrasion, located on right aspect of posterior scalp was cleaned with jl7 ice pack applied. Patient tolerated well. 16:58 CT Head C Spine In Process Unspecified. EDMS 17:31 No provider procedures requiring assistance completed. Patient did not have IV access jl7 during this emergency room visit. Administered Medications: No medications were administered Intake: 16:31 PO: 0ml; Total: 0ml. jl7 Output: 16:31 Urine: 0ml; Total: 0ml. jl7 Outcome: 17:23 Discharge ordered by . m 17:31 Discharged to home ambulatory, with family. jl7 17:31 Condition: stable 17:31 Discharge instructions given to patient, family, Instructed on discharge instructions, follow up and referral plans. Demonstrated understanding of instructions, follow-up care. 17:31 Patient's length of stay was not longer than 2 hours. jl7 17:32 Patient left the ED. jl7 Signatures: Dispatcher [employer] EDMS Berlin Navas PA PA jmm Leal, Jahala, RN RN pacheco
[2020-02-07 10:31] VITALS: TEMP 97.7; O2SAT 100
[2020-02-07 10:48] VITALS: BP 144/82
== END 2020-02-04 17:32 | disposition home or self-care (01) ==
LOC: ER 16:27
DX: S00.03XA Contusion of scalp, initial encounter (principal); W18.30XA Fall on same level, unspecified, initial encounter; Y93.89 Activity, other specified; Y92.9 Unspecified place or not applicable; I10 Essential (primary) hypertension; E11.9 Type 2 diabetes mellitus without complications; E03.9 Hypothyroidism, unspecified; Z88.2 Allergy status to sulfonamides; Z91.011 Allergy to milk products
CPT/HCPCS: 70450; 72125; 99284

== ENCOUNTER 2020-02-08 07:44 | Day surgery (SDC) | payer BC ==
--- NOTE | 2020-01-30 14:49 | RAD REPORT ---
EXAM DESCRIPTION: RAD - Chest Pa And Lat (2 Views) - 01/30/2020 2:43 pm CLINICAL HISTORY: preop Chest pain. COMPARISON: Chest Pa And Lat (2 Views) dated 05/15/2018; Chest Pa And Lat (2 Views) dated 12/08/2016; Chest Pa And Lat (2 Views) dated 11/08/2016; Chest Pa And Lat (2 Views) dated 11/02/2016 FINDINGS: The lungs are clear. The heart is mildly enlarged in size. No displaced fractures.
[2020-01-30 15:07] LABS: Absolute Lymphocytes (CBC) 1.6 K/uL (0.7-4.9); Basophils % 0.3 % (0-1.3); Hematocrit 44.1 % (36.0-45.0); Lymphocytes % 32.7 % (15.3-44.8); MPV 9.2 fL (7.6-11.3); RBC Red Blood Cell Count 4.77 M/uL (3.86-4.86)
[2020-01-30 15:11] LABS: Protime INR 0.97
[2020-01-30 15:31] LABS: Potassium 4.8 mmol/L (3.5-5.1)
--- NOTE | 2020-01-31 10:59 | EKG ---
Test Date: 2020-01-30 Test Time: 14:18:22 Senior Technical Support Analyst: SHANDA MEASUREMENT RESULTS: Intervals: Rate: 60 OR: 174 QRSD: 154 QT: 484 QTc: 484 Embudo: P: 51 OR: 174 QRS: -16 T: 214 INTERPRETIVE STATEMENTS: Normal sinus rhythm Left bundle branch block Abnormal ECG Compared to ECG 02/26/2003 15:42:00 Left bundle-branch block now present T-wave abnormality no longer present Electronically Signed On 01-31-20 10:56:35 CHAIN MACHINE OPERATOR by Wellington Ely
[~2020-02-08 07:44] MED LIST: HEPA 1000U/500MLS 1,000 UNIT/500 ML BAG IV ONE
--- OUTSIDE RECORDS SUMMARY | 2020-02-08 07:49 | XMS REPORT | Clinical Summary ---
:1950 Author Organization [facility] Address [address] [place] [address] Care Team Providers Name Role Phone Casey [...] day by oral Depression route. mometasone (NASONEX) [place] 2 spray(s) 51 g 3 07/09/2015 Active [...] Health Maintenance Due Date Last Done Comments COVID-19 VACCINE (#1) 1964 BREAST CANCER SCREENING 1998 COLONOSCOPY SCREENING 1998 SHINGLES VACCINES (#1) 1998 65+ PNEUMOCOCCAL VACCINE (1 of - PPSV23) 2013 INFLUENZA VACCINE 09/22/2019 Results Not on fileafter 02/07/2019 Insurance Payer Benefit Plan / Subscriber ID Effective Dates Phone Addre ss Type Group BCBS BCBS CHOICE [id number] 2016-Present PPO PPO/FEDERAL EMPL PPO MEDICARE MEDICARE PART A [id number] 1996-Present [place], [place] Medicare AND B
--- OUTSIDE RECORDS SUMMARY | 2020-02-08 07:49 | XMS REPORT | Continuity of Care Document ---
:1950 Author Organization [facility] t Address [address] [place] [address] [address]. [address] [place] [address] Care Team Providers Name Role Phone Lucille JAQUEZ Primary Care Physician Alesia TEMLPE, VAULT CUSTODIAN, CNP-BC, N Attending Clinician [phone] Colt JAQUEZ, Gene Attending Clinician Rola Robbins Attending Clinician Unavailable Problems This patient has no known problems. Allergies, Adverse Reactions, Alerts Allergy Allergy Status Severity Reaction(s) Onset Inactive Treating Comm ents Source Name Type Date Date Clinician Paroxeti Propensi Active [place] ne ty to 905 Methodi adverse 00:00: st reaction 00 s to drug Sulfa Drug Active Hives [facility] (Sulfona Allergy [facility] - mide 00:00: Medical Antibiot 00 Center ics) Sulfa Propensi Active [place] (Sulfona ty to 518 Methodi mide adverse 00:00: st Antibiot reaction 00 ics) s to drug Family History Family Member Diagnosis Comments Start Date Stop Date Source Natural brother No Known Problems Lane george Pentecostalism Natural father No Known Problems Blade coronado Pentecostalism Maternal aunt No Known Problems Dee tubbs Pentecostalism Maternal grandfather No Known Problems [place] Pentecostalism Maternal grandmother No Known Problems [place] Pentecostalism Maternal uncle No Known Problems Blade coronado Pentecostalism Natural mother No Known Problems Blade coronado Pentecostalism Paternal aunt No Known Problems Dee tubbs Pentecostalism Paternal grandfather No Known Problems [place] Pentecostalism Paternal grandmother No Known Problems Israel Bealist Paternal uncle No Known Problems Blade coronado Pentecostalism Natural sister No Known Problems Blade liangana Zamudio Social History Social Habit Start Date Stop Date Quantity Comments Source Sex Assigned At [facility] Tobacco use and 2018-10-26 2018-10-26 Never used [place] Arroyo ethodist exposure 00:00:00 00:00:00 Alcohol intake 2015-09-19 2015-09-19 Current [facility] es - 00:00:00 00:00:00 non-drinker of Medical Ce nter alcohol (finding) History of 1977-09-17 Current smoker [facility] es - tobacco use 00:00:00 Medical Jovanni mackenzie Smoking Status Start Date Stop Date Source Never smoker Israel watkins Former smoker 2015-09-19 00:00:00 2015-09-19 00:00:00 [facility] Medications Ordered Filled Start Stop Current Ordering [...] 20 09:14: daily. Medic al MG tablet [address] [place] [address] carvedilol Yes 12.5mg Take 12.[address] (COREG) 7-29 mg by [facility] - 12.5 MG 09:14: mouth 2 Medical tablet 23 (two) Center times daily with breakfast and dinner. glycopyrrol Yes 2mg [id number] Take [address] ate 09-18 [id number] by mouth 3 Yaa es - (ROBINUL) 2 09:14: 3D (three) Med ical MG tablet 23 times Center daily. glatiramer Yes Inject [facility] t (COPAXONE) 09-18 subcutaneo Yaa es - 40 mg/mL 09:14: usly. Medical Syrg 23 Center levothyroxi Yes Acquired Take 1 [place] ne 5-18 hypothyroid tablet by Met perkins (SYNTHROID, 00:00: ism mouth once st LEVOTHROID) 00 daily on 50 MCG an empty tablet stomach carvedilol Yes Essential 25mg Q.5D Take 1 [place] (COREG) 25 5-18 hypertensio tablet (25 Methodi MG tablet 00:00: n mg total) st 00 by mouth 2 (two) times a day with meals. lisinopril Yes Essential 20mg Q.5D Take 1 [place] (PRINIVIL,Z 5-18 hypertensio tablet (20 Methodi ESTRIL) 20 00:00: n mg total) st MG tablet 00 by mouth 2 (two) times a day. PARoxetine Yes Depression Take 1 [place] (PAXIL) 20 5-18 tablet(s) Meth david MG tablet 00:00: every day st 00 by oral route. mometasone Yes Allergic [place]uddy 2 [place] (NASONEX) 5-18 rhinitis, spray(s) M ethodi 50 [...] Comments Source Future Scheduled 2019-09-22 INFLUENZA VACCINE Byron perez [employer] Test 00:00:00 [code = INFLUENZA VACCINE] Future Scheduled 2013 65+ PNEUMOCOCCAL [place] [employer] Test 00:00:00 VACCINE (1 of 1 - PPSV23) [code = 65+ PNEUMOCOCCAL VACCINE (1 of 1 - PPSV23)] Future Scheduled 1998 BREAST CANCER [facility] thodist Test 00:00:00 SCREENING [code = BREAST CANCER SCREENING] Future Scheduled 1998 [facility]COPY [facility]CRE[facility]ING [facility] Test 00:00:00 [code = COLONOSCOPY SCREENING] Future Scheduled 1998 SHINGLES VACCINES (#1) [facility]alism Test 00:00:00 [code = SHINGLES VACCINES (#1)] Future Scheduled 1964 COVID-19 VACCINE (#1) [place] [facility] Test 00:00:00 [code = COVID-19 VACCINE (#1)] Encounters Start End Encounter Admission Attending Care Care Encounter Source Date/Time Date/Time Type Type Clinicians Facility Department ID 2020-02-07 2020-02-07 Office [facility] [id number] 13:04:59 14:52:31 Visit [facility] [id number] [place] [id number] Singh [id number] [place] [id number] Office [facility] 2020-02-07 2020-02-07 [facility] [id number] 00:00:00 00:00:00 Dwayne Pemberton [place] [id number] [place] [id number] [facility] [id number] [facility] 2018-01-10 2018-01-10 Outpatient PALLAVI Robbins [id number] [facility] 09:13:00 09:13:00 Gene OBGYAna 2017-04-12 2017-04-12 Outpatient PALLAVI Robbins [id number] [facility] 13:46:00 13:46:00 Gene OBGYAna 2016-07-30 2016-07-30 Outpatient PALLAVI Robbins [id number] [facility] 13:19:00 13:19:00 Gene OBMY Results This patient has no known results.
--- OUTSIDE RECORDS SUMMARY | 2020-02-08 07:49 | XMS REPORT | Clinical Summary ---
:1950 [address] [facility] [place] Address [address] [place] [id number] Care Team Providers Name Role Phone Unavailable [...] Not on file Results Not on fileafter 02/07/2019 Insurance Payer Benefit Plan / Subscriber ID Effective Dates Phone Addre ss Type Group AETNA - MGD AETNA HMO POS [id number] 2014-Present HMO/POS CARE QPOS
--- OUTSIDE RECORDS SUMMARY | 2020-02-08 07:53 | XMS REPORT | Summary of Care ---
:1950 Author Organization [facility] Address [address] [place] [address] Care Team Providers Name Role Phone Casey Adkins Primary Care Provider Reason for Visit Reason Comments Follow-up Encounter Details Date Type Department Care Team Description 02/07/2020 Office Visit [facility] Women's [place], Samuelonda Ur inary retention (Primary Dx); Health Care, Clear N, DNP, ATMOSPHERIC SCIENTIST, Mixed st ress and urge urinary incontinence [facility]-[address] [place] [phone] Allergies Active Allergy Reactions Severity Noted Date Comments Sulfa (Sulfonamide Antibiotics) Rash 7 documented as of this encounter (statuses as of 02/07/2020) Medications Medication Sig Dispensed Refills Start Date [...] as of this encounter (statuses as of 02/07/2020) Active Problems Problem Noted Date Nuclear senile cataract of both eyes 04/20/2019 Overview: Added automatically from request for elkin campbell [id number] documented as of this encounter (statuses as of 02/07/2020) Social History Tobacco Use Types Packs/Day Years Used Date Former Smoker Smokeless Tobacco: Never Used Alcohol Use Drinks/Week oz/Week Comments No Sex Assigned at Date Recorded Not on file documented as of this encounter Last Filed Vital Signs Vital Sign Reading Time Taken Comments Blood Pressure 137/85 02/07/2020 1:17 PM OIL WELL FISHING TOOL TECHNICIAN Pulse 65 02/07/2020 1:17 PM OIL WELL FISHING TOOL TECHNICIAN Temperature 36.6 C (97.8 F) 02/07/2020 1:17 PM OIL WELL FISHING TOOL TECHNICIAN Respiratory Rate 18 02/07/2020 1:17 PM OIL WELL FISHING TOOL TECHNICIAN Oxygen Saturation 98% 02/07/2020 1:17 PM OIL WELL FISHING TOOL TECHNICIAN Inhaled Oxygen Concentration - - Weight 58.2 kg (128 lb 3.2 oz) 02/07/2020 1:17 PM OIL WELL FISHING TOOL TECHNICIAN Height 154.9 cm (5' 1") 02/07/2020 1:17 PM OIL WELL FISHING TOOL TECHNICIAN Body Mass Index 24.22 02/07/2020 1:17 PM OIL WELL FISHING TOOL TECHNICIAN documented in this encounter Progress Notes Nanette Werner MA - 02/07/2020 1:30 PM CSTPatient provided with preferred teaching of verbal information as well as demenstration on straight c atheterization. Explained and coached patient how to clean and spot urethra using mirror, she then proceeded to insert 10 Fr speedi cath with no issues to obtain 300ml. Pt was informed she will need to self cath two(2) a day but should she collect 300 ml or more she will need to cath three( 3) that day. Patient was given supplies. Pt had no further questions at this time will follow up in 6 months WELL FISHING TOOL TECHNICIAN Jan Dumas, DNP, ATMOSPHERIC SCIENTIST, WHCNP-BC - 02/07/2020 1:30 PM CSTLukesarah Beckman is a 69 year old female here for medication follow up. [place] field sales representative assisted for history. Pt has been taking Sanctura 20 mg PO BID for mixed incontinence. Pt reports overall her symptoms have improved. She feels like her frequency is better but the urgency is still present. PVR today 252 ml. Patient reports when she went to ER in the past, she was told she had 800 ml in her bladder. Discussed learning ISC at this time. Patient verbally agrees. REVIEW OF SYSTEMS: Denies Chest pain, Shortness of breath, nausea, vomiting, diarrhea, fever or chills PHYSICAL EXAM: Alert, oriented and no apparent distress HEENT: pupils equal, round and reactive to light CV: Regular rate and rhythm Respiratory: Respirations even and unlabored Abomen: soft, nondistended Extremities: No clubbing, cyanosis or edema Skin: No rash or skin breakdown : Ua dip neg, PVR 252 ml A/P Urinary retention (primary encounter diagnosis) Comment: patient not completely emptying her bladder and had previous 800 ml retention. Patient PNE unsuccessful. Patient agreed to ISC at this time. Patient provided verbal instructions and demonstration for ISC. Patient demonstrated understanding. Plan: RTC in 6 weeks for follow up. ISC BID up to 4 x per day. Mixed stress and urge urinary incontinence Comment: see above Plan: POCT URINALYSIS W SPECIFIC GRAVITY See above gata Locke MA - 02/07/2020 1:30 PM CSTPer order Post void residual by bladder scan = 273 ml, results reported to provider. Toilet void of 50ml Per order Post void residual by bladder scan = 252 ml, results reported to provider. WELL FISHING TOOL TECHNICIAN documented in this encounter Plan of Treatment Date Type Specialty Care Team Description 02/08/2020 Office Visit Neurology Dwayne Gregory MD [address] [place] [address]. [place], [place] [phone] 03/20/2020 Office Visit Obstetrics & Gynecology Robert Dumas DNP, MICHAEL, [facility] [address] [place] [address] Health Maintenance Due Date Last [...] of this encounter Implants Implanted Type Area Child Care Device Shelf Model / Serial Identifier Expiration / Lot Date Lens, Ab #Sn60wf - [id number] LENS Right: Ab 01/20/2023 SN60WF / Implanted: Qty: 1 on 09/26/2019 by Maulik William MD at [facility] Eye [id number] / 0000 Lens, Ab #Sn60wf - [id number] LENS Left: Eye Ab 11/21/2023 SN60WF / Implanted: Qty: 1 on 11/07/2019 by Maulik William MD at [facility] [id number] / 0000 documented as of this encounter Procedures Procedure Name Priority Date/Time Associated Diagnosis Comme nts POCT URINALYSIS Routine 02/07/2020 1:36 PM Mixed stress and u rge Results for this OIL WELL FISHING TOOL TECHNICIAN urinary incontinence procedu re are in the results section. documented in this encounter Results POCT URINALYSIS W SPECIFIC GRAVITY (02/07/2020 1:36 PM OIL WELL FISHING TOOL TECHNICIAN) Pathologist Sig nature POCT U SP GRAV 1.005 1.005 - 1.025 mg/dl POCT PH U 7 5 - 8 mg/dl POCT U LEUK EST negative Negative - Negative POCT U NIT negative Negative - Negative POCT U PROT negative Negative - Negative POCT U GLU normal Negative - Negative POCT U KETONE negative Negative - Negative POCT U UROBILI normal 0.2 - 1 mg/dl POCT U BILI negative Negative - Negative POCT U BLD negative Negative - Negative POCT U COLOR yellow POCT U APPEAR clear Specimen Urine - URINE, CLEAN CATCH documented in this encounter Visit Diagnoses Diagnosis Urinary retention - Primary Retention of urine, unspecified Mixed stress and urge urinary incontinen ce Mixed incontinence urge and stress (male )(female) documented in this encounter Insurance Payer Benefit Plan Subscriber ID Effective Phone Address Typ e / Group Dates [facility] [id number] 2016-Tracie [phone] [address] PPO/POS - OUT OF nt [id number] [place] [address] MEDICARE MEDICARE PART [id number] 1996-Pres [phone] [address] Medicare A & B ent 82 [id number] [place] [phone] (Work) documented as of this encounter
--- OUTSIDE RECORDS SUMMARY | 2020-02-08 07:54 | XMS REPORT | Summary of Care ---
:1950 Author Organization [facility] Address [address] [place] [address] Care Team Providers Name Role Phone Casey Adkins Primary Care Provider Reason for Visit Reason Comments Follow-up Encounter Details Date Type Department Care Team Description 02/07/2020 Office Visit [facility] Women's [place], Samuelonda Ur inary retention (Primary Dx); Health Care, Clear N, DNP, BUILDING SERVICES TECHNICIAN, Mixed st ress and urge urinary incontinence [facility]-[address] [place] [phone] Allergies Active Allergy Reactions [...] Added automatically from request for elkin campbell [id number] documented as of this encounter (statuses as of 02/07/2020) Social History Tobacco Use Types Packs/Day Years Used Date Former Smoker Smokeless Tobacco: Never Used Alcohol Use Drinks/Week oz/Week Comments No Sex Assigned at Date Recorded Not on file documented as of this encounter Last Filed Vital Signs Vital Sign Reading Time Taken Comments Blood Pressure 137/85 02/07/2020 1:17 PM POWER REGULATOR Pulse 65 02/07/2020 1:17 PM POWER REGULATOR Temperature 36.6 C (97.8 F) 02/07/2020 1:17 PM POWER REGULATOR Respiratory Rate 18 02/07/2020 1:17 PM POWER REGULATOR Oxygen Saturation 98% 02/07/2020 1:17 PM POWER REGULATOR Inhaled Oxygen Concentration - - Weight 58.2 kg (128 lb 3.2 oz) 02/07/2020 1:17 PM POWER REGULATOR Height 154.9 cm (5' 1") 02/07/2020 1:17 PM POWER REGULATOR Body Mass Index 24.22 02/07/2020 1:17 PM POWER REGULATOR documented in this encounter Progress Notes Nanette [...] time will follow up in 6 months R REGULATOR Jan Dumas, DNP, BUILDING SERVICES TECHNICIAN, WHCNP-BC - 02/07/2020 1:30 PM CSTLukesarah Beckman is a 69 year old female here for medication follow up. Gibraltarian plastic machine operator assisted for history. Pt has been taking [...] = 252 ml, results reported to provider. R REGULATOR documented in this encounter Plan of Treatment Date Type Specialty Care Team Description 02/08/2020 Office Visit Neurology Dwayne Gregory MD [address] [place] [address]. [place], [place] [phone] 03/20/2020 Office Visit Obstetrics & Gynecology Robert Dumas DNP, MICHAEL, [facility] [address] [place] [address] Health Maintenance Due Date Last [...] of this encounter Implants Implanted Type Area Cover Marker Device Shelf Model / Serial Identifier Expiration / Lot Date Lens, Ab #Sn60wf - [id number] LENS Right: Ab 01/20/2023 SN60WF / Implanted: Qty: 1 on 09/26/2019 by Maulik William MD at [facility] Eye [id number] / 0000 Lens, Ab #Sn60wf - [id number] LENS Left: Eye Ab 11/21/2023 SN60WF / Implanted: Qty: 1 on 11/07/2019 by Maulik William MD at [facility] [id number] / 0000 documented as of this encounter Procedures Procedure Name Priority Date/Time Associated Diagnosis Comme nts POCT URINALYSIS Routine 02/07/2020 1:36 PM Mixed stress and u rge Results for this POWER REGULATOR urinary incontinence procedu re are in the results section. documented in this encounter Results POCT URINALYSIS W SPECIFIC GRAVITY (02/07/2020 1:36 PM POWER REGULATOR) Pathologist Sig nature POCT U SP GRAV [...] Phone Address Typ e / Group Dates [facility] [id number] 2016-Tracie [phone] [address] PPO/POS - OUT OF nt 87 [id number] [place] [address] MEDICARE MEDICARE PART [id number] 1996-Pres [phone] [address] X Medicare A & B ent 82 [id number] [place] [phone] (Work) documented as of this encounter
--- OUTSIDE RECORDS SUMMARY | 2020-02-08 07:54 | XMS REPORT | Summary of Care ---
:1950 Author Organization [address] [address] Care Team Providers Name Role Phone LucilleCasey Primary Care Provider Reason for Visit Reason Comments Refill Request Encounter Details Date Type Department Care Team Description 02/07/2020 Refill [facility] Dwayne Gregory MD Refill Request Neurology-[address] [place] [address] [address] [place] [address] [facility] [phone] Allergies Active Allergy Reactions Severity Noted Date Comments Sulfa (Sulfonamide Antibiotics) Rash 7 documented as of this encounter (statuses as of 02/07/2020) Medications Medication Sig Dispensed Refills Start Date End Date Status LISINOPRIL ORAL Take by mouth. 0 Active levothyroxine 50 Take 50 mcg by 0 08/12/2016 Active mcg tablet mouth daily. glycopyrrolate 1 mg TAKE 1 TO 2 0 08/16/2016 Active tablet TABLETS BY MOUTH 2-3 TIMES A DAY glycopyrrolate 2 mg Take 2 mg by 1 08/17/2016 Active tablet mouth daily. carvedilol 25 mg Take 25 mg by 0 08/12/2016 Active tablet mouth daily. glatiramer inject 40 mg 36 Syringe 3 10/13/2018 Acti ve (COPAXONE) 40 mg/mL under the skin Syrg every other day. No more than 3 times a week. bimatoprost Place 1 Drop in 0 Ac tive (LUMIGAN) 0.01 % each eye at ophthalmic drops bedtime. carvediloL (COREG) 0 A ctive 25 mg tablet omeprazole 40 mg 0 05/23/2019 Ac tive capsule mometasone spray 2 spray 0 07/09/2015 Acti ve (NASONEX) 50 by intranasal mcg/actuation nasal route every spray day in each nostril fexofenadine 60 mg 0 A ctive tablet moxifloxacin 0.5 % Place 1 Drop in 3 mL 0 10/04/2019 Active ophthalmic left eye 4 dropsIndications: (four) times Nuclear senile daily. cataract of both eyes prednisoLONE Place 1 Drop in 5 mL 1 10/04/2019 Active acetate 1 % left eye 4 ophthalmic (four) times suspension daily. dropsIndications: Nuclear senile cataract of both eyes ketorolac 0.5 % Place 1 Drop in 3 mL 0 10/04/2019 Active ophthalmic left eye 4 solutionIndications (four) times : Nuclear senile daily. cataract of both eyes levoFLOXacin 500 mg Take 500 mg by 0 Active tablet mouth every 24 (twenty-four) hours. sacubitriL-valsarta Take 1 tablet 0 Active n (ENTRESTO) 24-26 by mouth 2 mg tablet (two) times daily. trospium 20 mg Take 1 tablet 40 tablet 2 01/07/2020 Active tabletIndications: by mouth 2 Mixed stress and (two) times urge urinary daily. incontinence PAROXETINE 20 mg TAKE 1 TABLET 30 tablet 3 02/07/2020 Active tablet BY MOUTH EVERY DAY PAROXETINE 20 mg TAKE 1 TABLET 30 tablet 3 09/25/2019 02/07/20 2 Discontinued tablet BY MOUTH EVERY 0 DAY documented as of this encounter (statuses as of 02/07/2020) Active Problems Problem Noted Date Nuclear senile cataract of both eyes 04/20/2019 Overview: Added automatically from request for elkin campbell [id number] documented as of this encounter (statuses as of 02/07/2020) Social History Tobacco Use Types Packs/Day Years Used Date Former Smoker Smokeless Tobacco: Never Used Alcohol Use Drinks/Week oz/Week Comments No Sex Assigned at Date Recorded Not on file documented as of this encounter Last Filed Vital Signs Not on filedocumented in this encounter Miscellaneous Notes Telephone Encounter - Lauren, Shannan Perez LVN - 02/07/2020 3:46 PM CST Requested Prescriptions Pending Prescriptions Disp Refills PAROXETINE 20 mg tablet [Pharmacy Med Name: PAROXETINE HCL 20 MG TABLET] 30 tablet 3 Sig: TAKE 1 TABLET BY MOUTH EVERY DAY SHANNAN LAUREN LVN 02/07/2020 3:49 PM documented in this encounter Plan of Treatment Date Type Specialty Care Team Description 02/08/2020 Office Visit Neurology Dwayne Gregory MD [address] [place], [place] [address]. [place], [place] [phone] 03/20/2020 Office Visit Obstetrics & Gynecology Robert Dumas, DNP, SECURITY ESCORT, CNP -[facility] [address] [place] [address] Health Maintenance Due Date Last [...] of this encounter Implants Implanted Type Area Associate Accountant Device Shelf Model / Serial Identifier Expiration / Lot Date Lens, Ab #Sn60wf - [id number] LENS Right: Ab 01/20/2023 SN60WF / Implanted: Qty: 1 on 09/26/2019 by Maulik William MD at [facility] Eye [id number] / 0000 Lens, Ab #Sn60wf - [id number] LENS Left: Eye Ab 11/21/2023 SN60WF / Implanted: Qty: 1 on 11/07/2019 by Maulik William MD at [facility] [id number] / 0000 documented as of this encounter Results Not on filedocumented in this encounter Insurance Payer Benefit Plan Subscriber ID Effective Phone Address Typ e / Group Dates [facility] [id number] 2016-Presanibal [phone] [address] PPO/POS - OUT OF 87 [id number] [place] [address] MEDICARE MEDICARE PART [id number] 1996-Pres [phone] [address] A[address] X Medicare A & B ent 82 [id number] [place] [phone] documented as of this encounter
[2020-02-08] MEDS ORDERED: NA CHLORIDE 0.9% 500 ML ONE (08:07)
[2020-02-08] MEDS ORDERED: FENTANYL CITR 100 MCG/2 ML ONE (09:58)
[2020-02-08] MEDS ORDERED: MIDAZOLAM HCL 2 MG/2 ML INJ ONE (09:58)
[2020-02-08] MEDS ORDERED: ATROPINE SULF 1 MG/10 ML SYR IV ONE (09:58)
[2020-02-08] MEDS ORDERED: NA CHLORIDE 0.9% 0 ML ONE (09:58)
--- NOTE | 2020-02-08 11:30 | OP ---
Date of Procedure: 02/08/2020 Surgeon: Wellington Ely MD Buffing Wheel Operator: Ethan Kerr. Reason For Admission: New onset congestive heart failure, abnormal EKG, ejection fraction of 20% to 25%. The patient was brought to the lab animal technician today 02/08/2020. The procedure began about 10:30 in t he morning. A 6-Hungarian sheath was introduced initially in the right common femoral artery after 10 c c of Xylocaine. The wire, however, would not pass through the common iliac. Angiography there showe d complete occlusion of the right common iliac with a dissection through it. It was not flow-limitin g. The patient continued to have a good pulse. No complaint. We decided to move to the left side. We put a left common femoral artery sheath, which was 6-Hungarian. Nitza catheter left and right wer e used to do the diagnostic catheterization. She had a normal circ, normal RCA, which was right jennifer nant, very large diagonal, small LAD, [id number] plaquing in the LAD. Following that, an abdomi nal angiogram with runoff was done and it sounded nonocclusive dissection of the right common femoral artery, common iliac artery. Estimated Blood Loss: 5 mL. Postoperative Diagnosis: Mild coronary artery disease. 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 Plan is for medical therapy. Anesthesia: Total conscious sedation was 60 minutes. LUNA/CRISTELA Voice ID: [id number] Report ID: [id number]
[2020-02-08 14:04] VITALS: O2SAT 97
[2020-02-08 14:05] VITALS: BP 142/77
[2020-02-08 15:17] VITALS: TEMP 97.3
== END 2020-02-08 15:15 | disposition home or self-care (01) ==
LOC: CCL 07:44
DX: I25.10 Atherosclerotic heart disease of native coronary artery without angina pectoris (principal); I50.9 Heart failure, unspecified; Z20.828 Contact with and (suspected) exposure to other viral communicable diseases
CPT/HCPCS: 93005; 85025; 80048; 36415; 85610; 85730; 71046; 93454; U0002; C1893; C1760; J2250; J3010; J7040; J1644; J0583

== ENCOUNTER 2020-05-05 23:38 | Inpatient (IN) | payer BC, OTHER ==
--- OUTSIDE RECORDS SUMMARY | 2020-05-05 23:43 | XMS REPORT | Continuity of Care Document ---
:1950 Author Organization [facility] t Address [address] [place] [address] Care Team Providers Name Role Phone Colt JAQUEZ, Gene Attending Clinician GETACHEW Attending Clinician Unavailable Rola Robbins Attending Clinician Unavailable Payers Payer Name Policy Type Policy Number Effective Date Expiration Date S ource Problems This patient has no known problems. Allergies, Adverse Reactions, Alerts Allergy Allergy Status Severity Reaction(s) Onset Inactive Treating Comm ents Source Name Type Date Date Clinician sulfamet DA Active [facility] [place] [facility] trimetho [facility] Active [facility] prim [facility] [place] [facility] BACTRIM DA Active [facility] [place] [facility] Sulfa Drug Active Hives [facility] ics) sulfamet DA Active [facility] hoxazole - [place] [facility] trimetho DA Active [facility] prim - [place] [facility] d [facility] BACTRIM DA Active [facility] -03 [place] 00:[facility]: d [facility] No Known DA Active U 2007- [facility] Contrast 1- [place] Allergie 00:00: d s 00 [facility] No Known DA Active U 2007- [facility] Food 1- [place] Allergie 00:00: d s 00 [facility] No Known DA Active U 2007- [facility] Other 1- [place] Allergie 00:00: d s 00 [facility] Social History Social Habit Start Date Stop Date Quantity Comments Source Sex Assigned At [facility] Alcohol intake 2015-09-19 2015-09-19 [facility] non-drinker of Medical Ce nter alcohol (finding) History of 1977-09-17 Current smoker [facility] es - tobacco use 00:00:00 [facility] Cent[facility] r Smoking Status Start Date Stop Date Source Former smoker 2015-09-19 00:00:00 2015-09-19 00:00:00 [facility] Medications Ordered Filled Start Stop Current Ordering Indication Dosage Frequency Signature Comments Components Source Medication Medication Date Date Medication? Clinician (SIG) Name Name glycopyrrol Yes 2mg [id number] Take [address] [facility] ate 09-18 [id number] by mouth 3 Yaa es - (ROBINUL) 2 09:14: 3D (three) Med ical MG tablet 23 times Center daily. glatiramer Yes Inject [facility] (COPAXONE) 7- subcutaneo Yaa es - 40 mg/mL 09:14: usly. Medical Syrg 23 Leonidas lisinopril Yes 20mg QD Take [address] (PRINIVIL,Z 7-29 by mouth Luke s - ESTRIL) 20 09:14: daily. Medic al MG tablet 23 Center carvedilol Yes 12.5mg Take 12.[address] [facility] [address] (COREG) 7-29 mg by [facility] - 12.5 MG 09:14: mouth 2 Medical tablet 23 (two) Center times daily with breakfast and dinner. Procedures This patient has no known procedures. Encounters Start End Encounter Admission Attending Care Care Encounter Source Date/Time Date/Time Type Type Clinicians Facility Department ID 2020-04-15 2020-04-15 JUAN Song [id number] 09:58:21 11:53:50 Visit Dwayne Alarcon [id number] [place] [id number] Vashti [id number] [facility] 2020-03-19 2020-03-19 Outpatient GETACHEW, [facility] [id number] [place] [address] 00:00:00 00:00:00 NADIM [address] 2018-01-10 2018-01-10 Outpatient ALEX RobbinsKAIBROOKEDevon OLIVO [id number] [facility] 09:13:00 09:13:00 Gene OBGYN 2017-04-12 2017-04-12 Outpatient ALEX RobbinsKAIBROOKEDevon AVILAGYN [id number] [facility] 13:46:00 13:46:00 Gene OBGYN 2016-07-30 2016-07-30 Outpatient SANDIP RobbinsDevon AVILAGYN [id number] [facility] 13:19:00 13:19:00 Nilay Hodge Results Test Description Test Time Test Comments Results Result Comments Source SURG 2020-03-27 14:55:00 Test Item Value Reference Range Interpretation Comme nts SURG RUN DATE: (test 03/27/20 H [facility] PAGE 1 RUN TIME: 9150 code = Specimen Inquiry RUN USER: INTERFACE SURG) PATIENT: MARGIE RICHARDSON #: [id number] LOC: GURU Ocasio #: [id number] AGE/SX: 69/ F ROOM: RE03/26/20REG DR: Nicho Guerrero MD : 46 BED: DIS: STATUS: [facility] TLOC: SPEC #: [id number] RECD: STATUS: FELI BRYN #: [id number] LILIAM: 03/26/[address]: Nicho Guerrero MD ENTERED: 03/26/20 SP TYPE: SURG OTHR DR: Casey Sadler MD ORDERED: SURG PATH LVL 05/28 COPIES TO: Casey Adkins MD [address] [facility] [address] [place] [address] Nicho Guerrero MD [address] [place] [address] HISTOLOGY: T ISSUE ID BLK PCS LIVIA LEV PROCEDURE DISPOSITION ____ ___ ___ ___ CECUM, NOS A 1 2 COLO N, NOS B 1 2 ILEUM, NOS C 1 2 COLON, NOS D 1 2 ASCENDING COLON E 1 2 COLON, NOS F 1 2 RECTUM, NOS G 1 2 PROCEDURES: SURG PATH LVL 4 (03/26/20) TISSUES: A. CECUM, NOS - CECAL COLON POLYP B. COLON, NOS - ILEALCECAL COLON BIOPSY C. ILEU M, NOS - TERMINAL ILEUM BIOPSY D. COLON, NOS - RIGHT COLON BIOPSY E. ASCENDING COLON - CENDING COLON POLYP F. COLON, NOS - LEFT COLON POLYP G. RECTUM, NOS - RECTAL COLON B IOPSY CLINICAL HISTORY HEMATOCHEZIA CPT CODES CPT CODE(S): 09714O3 , , , , , , CONTINUED ON NEXT PAGE RUN DATE: 03/27/20 H [facility] - LAB PAGE 2 RUN TIME: 1455 Specimen Inquiry RUN USER: INTERFACE SPEC #: [facility]:[id number] PATIENT: MARGIE RICHARDSON #[id number] (Continued) FINAL DIAGNOSIS A . Colon, cecum, polypectomy: TUBULAR ADENOMA B. Colon, ileocecal valve, biopsy: TUBULAR ADENOMA C. Small intestine, terminal ileum, biopsy: TERMINAL ILEUM WITH UNREMARK ABLE VILLI D. Colon, right, biopsy: COLONIC MUCOSA WITH NO PATHOLOGIC DIAGNOSIS E . Colon, ascending, polypectomy: TUBULAR ADENOMA F. Colon, left, biopsy. COLONI C MUCOSA WITH NO PATHOLOGIC DIAGNOSIS G. Colon, rectum, biopsy: COLONIC MUCOSA WITH NO PATHO LOGIC DIAGNOSIS GROSS DESCRIPTION A. Cecal colon polyp. Received in formalin is a dale tissue fragment, 0.2 cm, all as A. B. Ileocecal valve colon biopsy. Received in formalin are thr ee dale tissue fragments, 0.1 - 0.3 cm, all as B. C. Terminal ileum biopsy. Received in formali n are two dale tissue fragments, 0.2 and 0.3 cm, all as C. D. Right colon biopsy. Received in f ormalin are three dale tissue fragments, <0.1 - 0.4 cm, all as D. E. Ascending colon polyp. Rece ived in formalin are five dale tissue fragments, 0.2 - 0.3 cm, all as E. F. Left colon biopsy. R eceived in formalin are two dale tissue fragments, 0.2 and 0.3 cm, all as F. CONTINUED ON NEXT PAGE RUN DATE: 03/27/20 H [facility] - [facility] PAGE 3 RUN TIME: 1455 Specimen Inquiry RUN USER: INTERFACE SPEC #: [facility]:[id number] PATIENT: MARGIE RICHARDSON DEMETRI #[id number] (Continued) GROSS DESCRIPTION (Continued) G. Rectal colon biopsy. Received in formalin are two dale tissue fragments, 0.3 and 0.4 cm, all as G. christiano/nr Grossing performed at [facility] Pathology, [facility], [address], [place], [place] [address]. Manager University: Rick Granger M.D. MICROSCOPIC DESCRIPTION A . Cecal colon polyp. Sections demonstrate colonic mucosa with glands demonstrate crowded, hyperch romatic, pseudostratified nuclei. No evidence of high-grade dysplasia or malignancy is seen. B. Ileocecal valve colon biopsy. Sections demonstrate colonic mucosa with glands demonstrating crowded , hyperchromatic, pseudostratified nuclei. No evidence of high-grade dysplasia or malignancy is s een. C. Terminal ileum biopsy. Sections demonstrate terminal ileum with unremarkable villi. No evidence of villous blunting or increased inflammation is seen. No dysplasia or malignancy is s een. D. Right colon biopsy. Sections demonstrate colonic mucosa with no evidence of increased a cute inflammation or chronic architectural distortion. No dysplasia or malignancy is seen. E. Ascending colon polyp. Sections demonstrate colonic mucosa with glands demonstrate crowded, hyperch romatic, pseudostratified nuclei. No evidence of high-grade dysplasia or malignancy is seen. F. Left colon biopsy. Sections demonstrate colonic mucosa with no evidence of increased acute inflamm ation or chronic architectural distortion. No dysplasia or malignancy is identified. G. Rectal colon biopsy. Sections demonstrate colonic mucosa with glands demonstrating no evidence of increased accumulation of chronic architectural distortion. No dysplasia or malignancy is identified. Signed SIGNATURE ON FILE Sarbjit Medina 03/27/20 1455 END OF REPORT BASIC METABOLIC [id number] 13:47:00 Test Item Value Reference Range Interpretation Comments SODIUM (test code = NA) 143 mmol/L 134-147 N POTASSIUM (test code = 3.8 mmol/L 3.4-5.0 N K) CHLORIDE (test code = 108 mmol/L 100-108 N CL) CARBON DIOXIDE (test 31 mmol/L 21-32 N code = CO2) ANION GAP (test code = 4.0 GAP calc 4.0-15.0 N GAP) GLUCOSE (test code = 90 MG/DL 70-110 N GLU) BLOOD UREA NITROGEN 14 MG/DL 7-18 N (test code = BUN) GLOMERULAR FILTRATION >=60 max estimate >60 RATE (test code = GFR) estGFR CREATININE (test code = 0.6 MG/DL 0.6-1.0 N CREAT) CALCIUM (test code = CA) 8.9 MG/DL 8.5-10.1 N COVID 19 INHOUSE [id number] 13:34:00 Test Item Value Reference Range Interpretation Comments COVID 19 INHOUSE AG NEGATIVE Negative Per manu facturer, (test code = negative result s should [id number]) be treated aspr esumptive and, if inconsi stent with clinical signs andsymptoms or necessary for patient man agement, should betested with an alternative mol ecular assay. Negative resultsdo not preclude SA RS-CoV-2 infection and s hould not be usedas the s ole basis for patient man agement decisions. Neg ative results should be considered in t he context of apatient's r ecent exposures, hist ory, presence of cli nicalsigns and symptoms co nsistent with COVID-19. Spec Comments: PRE OPCBC W/AUTO [id number] 13:14:00 Test Item Value Reference Range Interpretation Comments WHITE BLOOD CELL (test code = 5.0 K/mm3 3.5-11.0 N WBC) RED BLOOD CELL (test code = 4.25 M/mm3 4.70-6.10 L RBC) HEMOGLOBIN (test code = HGB) 12.9 G/DL 10.4-14.9 N HEMATOCRIT (test code = HCT) 39.9 % 31.5-44.1 N MEAN CELL VOLUME (test code = 93.9 Fl 84.5-98.6 N MCV) MEAN CELL HGB (test code = MCH) 30.4 pg 27.0-34.2 N MEAN CELL HGB CONCETRATION 32.3 G/DL 31.5-34.0 N (test code = MCHC) RED CELL DISTRIBUTION WIDTH 13.2 SD 11.5-14.5 N (test code = RDW) PLATELET COUNT (test code = 246 K/mm3 150-450 N PLT) MEAN PLATELET VOLUME (test code 10.10 fL 7.0-10.5 N = MPV) NEUTROPHIL % (test code = NT%) 56.0 % 40-76 N IMMATURE GRANULOCYTE % (test 0.4 % 0.0-5.0 N code = IG%) LYMPHOCYTE % (test code = LY%) 31.8 % 20.5-51.1 N MONOCYTE % (test code = MO%) 7.4 % 1.7-9.3 N EOSINOPHIL % (test code = EO%) 3.2 % 0.0-6.0 N BASOPHIL % (test code = BA%) 1.2 % 0.0-2.0 N NUCLEATED RBC % (test code = 0.0 /100WBC% 0.0-1.0 N NRBC%) NEUTROPHIL # (test code = NT#) 2.8 K/mm3 1.8-7.6 N IMMATURE GRANULOCYTE # (test 0.02 x10 3/uL 0.00-0.03 N code = IG#) LYMPHOCYTE # (test code = LY#) 1.6 K/mm3 0.6-3.2 N MONOCYTE # (test code = MO#) 0.4 K/mm3 0.3-1.1 N EOSINOPHIL # (test code = EO#) 0.2 K/mm3 0.0-0.4 N BASOPHIL # (test code = BA#) 0.1 K/mm3 0.0-0.1 N NUCLEATED RBC # (test code = 0.0 K/mm3 0.0-0.1 N NRBC#) MANUAL DIFF REQUIRED (test code NO DIFF/SCN CRITERIA = MDIFF)
[2020-05-06 00:42] LABS: Absolute Lymphocytes (CBC) 1.3 K/uL (0.7-4.9); Basophils % 0.8 % (0-1.3); Hematocrit 41.4 % (36.0-45.0); Lymphocytes % 41.9 % (15.3-44.8); MPV 9.7 fL (7.6-11.3)
[2020-05-06 00:43] LABS: Protime INR 1.03
[2020-05-06 00:51] LABS: ALT/SGPT 18 U/L (12-78); AST/SGOT 15 U/L (15-37); Alkaline Phosphatase 105 U/L (45-117); BUN Blood Urea Nitrogen 12 mg/dL (7-18); Bicarbonate 28 mmol/L (21-32); Bilirubin Direct < 0.1 mg/dL (0-0.2); Bilirubin Total 0.2 mg/dL (0.2-1.0); Creatine Phosphokinase 64 U/L (26-192); Glucose Level 91 mg/dL (74-106); Lipase 166 U/L (73-393); Magnesium 1.8 mg/dL (1.8-2.4); Protein, Total 6.2 g/dL (6.4-8.2); Sodium Level 143 mmol/L (136-145); Troponin (Emerg Dept Use Only) < 0.02 ng/mL (0.0-0.045)
--- NOTE | 2020-05-06 01:55 | ER ---
Nurse's Notes [facility] Name: Ramandeep Gooden Age: 69 yrs Sex: Female : 1950 Arrival Date: 05/05/2020 Time: 23:42 Bed 4 Private MD: Diagnosis: Syncope and collapse;Hypotension, unspecified Presentation: 05/05 23:47 Chief complaint: EMS states: pt spouse stated that she took her normal injection for sg MS, was able to walk to the restroom and then when she came back to bed she was not acting normal. She was not coherent. 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 Coronavirus screen: Client denies travel out of the [place] in the last 14 days. At this time, the client does not indicate any symptoms associated with coronavirus-19. Ebola Screen: Patient negative for fever greater than or equal to 101.5 degrees Fahrenheit, and additional compatible Ebola Virus Disease symptoms Patient denies exposure to infectious person. Patient denies travel to an Ebola-affected area in the 21 days before illness onset. No symptoms or risks identified at this time. Initial Sepsis Screen: Does the patient meet any 2 criteria? No. Patient's initial sepsis screen is negative. Does the patient have a suspected source of infection? No. Patient's initial sepsis screen is negative. Risk Assessment: Do you want to hurt yourself or someone else? Patient reports no desire to harm self or others. Onset of symptoms was May 05, 2020. Care prior to arrival: None. Activity prior to arrival:. Mechanism of Injury: No Mechanism of Injury. Transition of care: patient was not received from another setting of care. 23:47 Acuity: BLAINE 2 sg 23:47 Method Of Arrival: EMS: [facility] sg 23:47 Note pt reports having a fall tonight during this episode, and was incontinent of bowel.sg Historical: - Allergies: 23:51 MILK PRODUCTS; sg 23:51 Sulfa (Sulfonamide Antibiotics); sg - PMHx: 23:51 Diabetes - NIDDM; Hypertension; Hypothyroidism; Multiple Sclerosis; sg - PSHx: 23:51 Hysterectomy; Cholecystectomy; sg - Immunization history:: Adult Immunizations up to date. - Social history:: Smoking status: Patient denies any tobacco usage or history of. Screenin/16 00:20 Abuse screen: Denies threats or abuse. Nutritional screening: No deficits noted. ea Tuberculosis screening: No symptoms or risk factors identified. Fall Risk IV access (20 points). Assessment: 00:15 General: Appears uncomfortable, Behavior is appropriate for age. Pain: Denies pain. ea Neuro: Level of Consciousness is awake, alert, obeys commands, Oriented to person, place, situation, Reports dizziness, dizziness when she moves. Cardiovascular: Patient's skin is warm and dry. Respiratory: Airway is patent Respiratory effort is even, unlabored, Respiratory pattern is regular, symmetrical. GI: pt reports she had an incontinence episode. Derm: Skin is pink, warm \T\ dry. 00:26 Reassessment: [phone]. ea 00:48 Reassessment: Patient and/or family updated on plan of care and expected duration. Pain ea level reassessed. Patient is alert, oriented x 3, equal unlabored respirations, skin warm/dry/pink. Returned from CT. 02:24 Reassessment: Patient and/or family updated on plan of care and expected duration. Pain ea level reassessed. Patient is alert, oriented x 3, equal unlabored respirations, skin warm/dry/pink. Hospitalist at bedside updating pt on plan of care. Vital Signs: 00:21 BP 137 / 84; Pulse 69; Resp 19; Temp 98.5(O); Pulse Ox 98% on R/A; ea 00:49 BP 142 / 78; Pulse 73; Resp 16; Pulse Ox 99% ; ea 01:15 BP 135 / 73; Pulse 70; Resp 19; Pulse Ox 98% ; rr5 02:24 BP 130 / 82; Pulse 74; Resp 20; Pulse Ox 98% ; ea ED Course: 05/05 23:42 Patient arrived in ED. mw 23:43 Toño Luna MD is Attending Physician. tw4 23:49 Triage completed. sg 23:50 Arm band placed on. sg 05/06 00:10 Samara Escobar, RN is Primary Nurse. ea 00:21 Patient has correct armband on for positive identification. Bed in low position. Call ea light in reach. Side rails up X2. quality assurance monitor final on. Pulse ox on. NIBP on. 00:21 No provider procedures requiring assistance completed. Maintain EMS IV. Dressing ea intact. Good blood return noted. Site clean \T\ dry. Gauge \T\ site: 20G left AC . 01:03 CT Head C Spine In Process Unspecified. EDMS 01:54 Pedrito Rubio DO is Hospitalizing Provider. tw4 02:24 Patient admitted, IV remains in place. ea 02:55 Hospitalizing Provider role handed off by Pedrito Rubio DO tw4 02:55 Casey Adkins MD is Hospitalizing Provider. tw4 03:05 CT Chest For PE Angio In Process Unspecified. EDMS 08:30 Inserted saline lock: 20 gauge in right forearm, using aseptic technique. Blood jl7 collected. 08:45 IV discontinued, intact, bleeding controlled, No redness/swelling at site. Pressure jl7 dressing applied. 09:00 Patient admitted, IV remains in place. intact, No redness/swelling at site. jl7 Administered Medications: No medications were administered Outcome: 01:55 Decision to Hospitalize by Provider. tw4 02:23 Admitted to ER Hold. Please see [facility] for further documentation. ea 02:23 Condition: stable 02:23 Instructed on the need for admit, Demonstrated understanding of instructions. 09:16 Patient left the ED. tw2 Signatures: Dispatcher [employer] EDCO Sonia Vang, RN SARITA Sriram Mack RN Yani Durham RN RN tw2 Fortunato Costello RN RN jl7 Samara Escobar RN Toño Delaney ea, MD MD tw4 Jacobo Lopez, RN RN rr5
--- NOTE | 2020-05-06 01:56 | EDPHYS ---
Physician Documentation [facility] Name: Ramandeep Gooden Age: 69 yrs Sex: Female : 1950 Arrival Date: 05/05/2020 Time: 23:42 Bed 4 Private MD: ED Physician Toño Luna HPI: 05/06 07:47 This 69 yrs old Female presents to ER via EMS with complaints of Blood tw4 Pressure Problem. 07:47 The patient has experienced syncope, became unresponsive. Onset: The symptoms/episode tw4 began/occurred today. Duration: This was a single episode. Associated injury: The patient did not suffer any apparent associated injury. The patient has not experienced similar symptoms in the past. Historical: - Allergies: 05/05 23:51 MILK PRODUCTS; sg 23:51 Sulfa (Sulfonamide Antibiotics); sg - PMHx: 23:51 Diabetes - NIDDM; Hypertension; Hypothyroidism; Multiple Sclerosis; sg - PSHx: 23:51 Hysterectomy; Cholecystectomy; sg - Immunization history:: Adult Immunizations up to date. - Social history:: Smoking status: Patient denies any tobacco usage or history of. ROS: 05/06 07:47 Constitutional: Negative for fever, chills, and weight loss, Eyes: Negative for injury, tw4 pain, redness, and discharge, Cardiovascular: Negative for chest pain, palpitations, and edema, Respiratory: Negative for shortness of breath, cough, wheezing, and pleuritic chest pain, Abdomen/GI: Negative for abdominal pain, nausea, vomiting, diarrhea, and constipation, Back: Negative for injury and pain, MS/Extremity: Negative for injury and deformity, Skin: Negative for injury, rash, and discoloration, Neuro: Negative for headache, weakness, numbness, tingling, and seizure. Exam: 07:47 Constitutional: This is a well developed, well nourished patient who is awake, alert, tw4 and in no acute distress. Head/Face: Normocephalic, atraumatic. Chest/axilla: Normal chest wall appearance and motion. Nontender with no deformity. No lesions are appreciated. Cardiovascular: Regular rate and rhythm with a normal S1 and S2. No gallops, murmurs, or rubs. Normal PMI, no JVD. No pulse deficits. Respiratory: Lungs have equal breath sounds bilaterally, clear to auscultation and percussion. No rales, rhonchi or wheezes noted. No increased work of breathing, no retractions or nasal flaring. Abdomen/GI: Soft, non-tender, with normal bowel sounds. No distension or tympany. No guarding or rebound. No evidence of tenderness throughout. Back: No spinal tenderness. No costovertebral tenderness. Full range of motion. MS/ Extremity: Pulses equal, no cyanosis. Neurovascular intact. Full, normal range of motion. Neuro: Awake and alert, GCS 15, oriented to person, place, time, and situation. Cranial nerves II-XII grossly intact. Motor strength 5/5 in all extremities. Sensory grossly intact. Cerebellar exam normal. Normal gait. Vital Signs: 00:21 BP 137 / 84; Pulse 69; Resp 19; Temp 98.5(O); Pulse Ox 98% on R/A; ea 00:49 BP 142 / 78; Pulse 73; Resp 16; Pulse Ox 99% ; ea 01:15 BP 135 / 73; Pulse 70; Resp 19; Pulse Ox 98% ; rr5 02:24 BP 130 / 82; Pulse 74; Resp 20; Pulse Ox 98% ; ea MDM: 00:54 Patient medically screened. tw4 07:47 Differential Diagnosis: aortic aneurysm, cardiac arrhythmia, idiopathic syncope, tw4 , vasovagal episode. Data reviewed: vital signs, nurses notes. Data interpreted: Pulse oximetry: Interpretation: normal. Counseling: I had a detailed discussion with the patient and/or guardian regarding: the historical points, exam findings, and any diagnostic results supporting the discharge/admit diagnosis. Special discussion: I discussed with the patient/guardian in detail that at this point there is no indication for admission to the hospital. It is understood, however, that if the symptoms persist or worsen the patient needs to return immediately for re-evaluation. 05/05 23:43 Order name: Basic Metabolic Panel 05/05 23:43 Order name: CBC with Diff 05/05 23:43 Order name: Ckmb 05/05 23:43 Order name: CPK 05/05 23:43 Order name: Hepatic Function 05/05 23:43 Order name: Lipase 05/05 23:43 Order name: Magnesium 05/05 23:43 Order name: Protime (+inr) 05/05 23:43 Order name: Ptt, Activated; Complete Time: 00:55 05/06 00:55 Interpretation: Within normal limits: PTT 24.8. 05/05 23:43 Order name: Troponin (emerg Dept Use Only); Complete Time: 00:55 05/06 00:55 Interpretation: Within normal limits: TROPED < 0.02. 05/05 23:50 Order name: Basic Metabolic Panel; Complete Time: 00:55 EDMS 05/06 00:55 Interpretation: Normal except: CL 110; GFR 70. 05/05 23:50 Order name: CBC with Automated Diff; Complete Time: 00:55 EDMS 05/06 00:55 Interpretation: Normal except: WBC 3.00; MN% 0.6; NEUT A 1.7. 05/05 23:50 Order name: CKMB Creatine Kinase MB; Complete Time: 00:55 EDMS 03 00:55 Interpretation: Within normal limits: CKMB 1.0. 05/05 23:50 Order name: Creatine Phosphokinase; Complete Time: 00:55 EDMS 05/06 00:55 Interpretation: Within normal limits: CPK 64. 05/05 23:43 Order name: CT Head C Spine 05/05 23:50 Order name: Liver (Hepatic) Function; Complete Time: 00:55 EDMS 05/06 00:55 Interpretation: Normal except: TP 6.2; ALB 3.0; A/G 0.9. 05/05 23:50 Order name: Lipase; Complete Time: 00:55 EDMS 05/06 00:56 Interpretation: Within normal limits: LIP 166. 05/05 23:50 Order name: Magnesium; Complete Time: 00:55 EDMS 05/06 00:56 Interpretation: Within normal limits: MG 1.8. 05/05 23:50 Order name: Protime (+INR); Complete Time: 00:55 EDMS 05/06 00:56 Interpretation: Within normal limits: PT 11.9. 05/06 01:33 Order name: CT Chest For PE Angio 4 05/06 02:44 Order name: Urine Dipstick--Ancillary (enter results) tt3 05/06 05:34 Order name: SARS-COV-2 RT PCR [facility] 05/06 06:35 Order name: Basic Metabolic Panel [facility] 05/06 06:35 Order name: Basic Metabolic Panel [facility] 05/06 06:35 Order name: Troponin I [facility] 05/06 06:35 Order name: Troponin I [facility] 05/06 06:35 Order name: CBC with Automated Diff [facility] 05/06 06:35 Order name: CBC with Automated Diff [facility] 05/06 06:35 Order name: Troponin I [facility] 05/05 23:43 Order name: Call for Old Records 05/05 23:43 Order name: Call for Old EKG 05/05 23:43 Order name: EKG; Complete Time: 23:50 05/05 23:43 Order name: Cardiac monitoring; Complete Time: 00:11 05/05 23:43 Order name: EKG - Nurse/Tech; Complete Time: 00:12 05/05 23:43 Order name: IV Saline Lock; Complete Time: 00:20 05/05 23:43 Order name: Labs collected and sent; Complete Time: 00:20 05/05 23:43 Order name: NPO; Complete Time: 00:12 05/05 23:43 Order name: O2 Per Protocol; Complete Time: 00:12 05/05 23:43 Order name: O2 Sat Monitoring; Complete Time: 00:12 05/05 23:43 Order name: Urine Dipstick-Ancillary (obtain specimen); Complete Time: 03:37 05/06 06:35 Order name: CONS Physician Consult [facility] 05/06 06:35 Order name: EKG Electrocardiogram [facility] 05/06 06:35 Order name: EKG Electrocardiogram [facility] 05/06 06:35 Order name: EKG Electrocardiogram [facility] 05/06 06:35 Order name: EKG Electrocardiogram [facility] EC:47 Rate is 69 beats/min. Rhythm is regular. QRS Seguin is Normal. NC interval is normal. QRS tw4 interval is normal. QT interval is normal. No Q waves. T waves are Normal. No ST changes noted. Clinical impression: LBBB. Interpreted by me. Reviewed by me. Administered Medications: No medications were administered Disposition: 05/06/20 01:55 Hospitalization ordered by Casey Adkins for Inpatient Admission. Preliminary diagnosis are Syncope and collapse, Hypotension, unspecified. - Bed requested for Telemetry/MedSurg (Inpatient). - Status is Inpatient Admission. tw2 - Condition is Stable. - Problem is new. - Symptoms have improved. Signatures: Dispatcher [employer] EDAR Sonia Vang RN SARITA Sriram Mack RN SARITA sg Yani Frias RN RN tw2 Samara Escobar RN RN ea Wadley, Terrence, MD MD tw4 Corrections: (The following items were deleted from the chart) 02:04 01:55 Hospitalization Ordered by Pedrito Rubio DO for Inpatient Admission. Preliminary sg diagnosis is Syncope and collapse; Hypotension, unspecified. Bed requested for Telemetry/MedSurg (Inpatient). Status is Inpatient Admission. Condition is Stable. Problem is new. Symptoms have improved. tw4 02:55 02:04 05/06/2020 01:55 Hospitalization Ordered by Pedrito Rubio DO for Inpatient tw4 Admission. Preliminary diagnosis is Syncope and collapse; Hypotension, unspecified. Bed requested for [facility] ER HOLD. Status is Inpatient Admission. Condition is Stable. Problem is new. Symptoms have improved. 03:14 02:06 CORONAVIRUS+MR.LAB.BRZ ordered. [facility] EDMS 06:27 02:55 05/06/2020 01:55 Hospitalization Ordered by Casey Adkins MD for Inpatient Admission. Preliminary diagnosis is Syncope and collapse; Hypotension, unspecified. Bed requested for [facility] ER HOLD. Status is Inpatient Admission. Condition is Stable. Problem is new. Symptoms have improved. tw4 09:16 06:27 05/06/2020 01:55 Hospitalization Ordered by Casey Adkins MD for Inpatient tw2 Admission. Preliminary diagnosis is Syncope and collapse; Hypotension, unspecified. Bed requested for Telemetry/MedSurg (Inpatient). Status is Inpatient Admission. Condition is Stable. Problem is new. Symptoms have improved. mw
[2020-05-06 02:54] LABS: Urine Blood TRACE (NEG); Urine Glucose NEGATIVE (NEG); Urine Protein NEGATIVE (NEG)
[2020-05-06] MEDS ORDERED: ASPIRIN EC 81 MG TAB PO SCH (09:00)
[2020-05-06 09:41] VITALS: O2SAT 98
[2020-05-06 10:39] VITALS: BMI 24.6
--- NOTE | 2020-05-06 11:38 | RAD REPORT ---
EXAM DESCRIPTION: CT - Head C Spine Mpr Wo Con - 05/06/2020 6:19 am CLINICAL HISTORY: WEAKNESS COMPARISON: 02/04/2020 TECHNIQUE: Axial CT of the head obtained from the skull apex to the skull base without contrast. Axi al CT images of the cervical spine obtained from the skull base through the thoracic inlet. Sagittal and coronal reformatted images available. This exam was performed according to our departmental dose- optimization program, which includes automated exposure control, adjustment of the mA and/or kV accor ding to patient size and/or use of iterative reconstruction technique. FINDINGS: CT head: No acute intracranial hemorrhage identified. No mass, mass effect, shift of the midline, abnormal ext ra-axial fluid collection or CT evidence of acute ischemic change identified. Mild enlargement of geo tricular system and sulcal spaces likely representing a component of atrophy. Confluent areas of hy podensity throughout the supratentorial white matter likely represents sequela of chronic small vesse l ischemic change. The visualized paranasal sinuses and the mastoids are clear. No skull fracture identified. Visual ized orbits and globes are unremarkable. Cervical CT: Alignment of the cervical spine is maintained without evidence of subluxation. The atlantoaxial, at lantodental, and occipitoatlantal intervals are preserved. No fracture identified. Vertebral body h eight preserved. Prevertebral soft tissues are unremarkable. Aysa-lv-lahtpfiq multilevel loss of intervertebral disc height with endplate spondylosis, uncovertebr al spurring, and facet arthropathy. Visualized skull base is intact. No fracture of the visualized facial bones. Visualized mastoid air c ells and paranasal sinuses are well aerated. Visualized thyroid is unremarkable. No cervical lymphadenopathy. No pneumothorax in the visualized lung apices. IMPRESSION: 1. No acute intracranial abnormality. 2. No acute fracture or subluxation of the cervical spine. Electronically signed by: Chivo Olivera 05/06/2020 1:19 AM CDT Due to temporary technical issues with the PACS/Fluency reporting system, reports are being signed by the in house radiologist without review as a courtesy to ensure prompt reporting. The interpreting r adiologist is fully responsible for the content of the report.
--- NOTE | 2020-05-06 11:55 | RAD REPORT ---
EXAM DESCRIPTION: CT - Chest For Pe Angio - 05/06/2020 6:15 am CLINICAL HISTORY: 69 years, Female, syncope COMPARISON: 12/17/2016 TECHNIQUE: Multiple transaxial tomograms of the chest were obtained from the lung apices through the lung bases utilizing 2 mm slice thickness at 2 mm interval reconstruction after the administration o f a focus of IV contrast for complete opacification of the pulmonary arteries. Subsequent maximum intensity projection images were generated in the coronal and sagittal plane for r eview. An individualized dose optimization technique, Automated Exposure Control, was utilized for the perfo rmed procedure. FINDINGS: The lungs parenchyma demonstrate to be clear. No masses, nodules and/or consolidations are identified. Minimal dependent atelectatic changes are seen within the lung bases The trachea mainste m bronchus demonstrate to be normal. There is no significant pericardial or pleural effusions. The thoracic aorta demonstrate to be unremarkable. There is no evidence for thoracic aortic dissectio n and/or significant aneurysm. The heart is normal in size. No evidence for right ventricular strain. There are no significant coronary artery calcifications. There is no significant mediastinal and/or hilar lymphadenopathy. The axillary regions demonstrate to be clear. Pulmonary arteries demonstrate to be normal, no intraluminal defect are seen that would suggest pulmo nary embolus. The bone windows demonstrate no significant skeletal lesions. The visualized portions of the upper abdomen demonstrate status post cholecystectomy. IMPRESSION: No evidence for pulmonary embolism and/or thoracic aortic dissection. Minimal dependent atelectatic changes lung bases. Status post cholecystectomy. Electronically signed by: Jhon Arrington MD 05/06/2020 3:14 AM CDT Due to temporary technical issues with the PACS/Fluency reporting system, reports are being signed by the in house radiologist without review as a courtesy to ensure prompt reporting. The interpreting r adiologist is fully responsible for the content of the report.
--- NOTE | 2020-05-06 12:01 | SS ---
The patient states that she took her shot for her MS of Suboxone, which she has been taking for years and then 15 to 20 minutes later, she felt extremely weak and faint and had to lie down and she says the possibility that she passed out. She was therefore brought to the emergency room by her and admitted for syncope and/or near syncope. See also states has been some question about the pacem eva with one washer hand saying yes she could probably benefit from it, the other one doctor has pu t it on hold. In fact, she is supposed to see Dr. Vanessa tomorrow for evaluation of the arrhythmia. While she has been here, she has had sinus bradycardia. States she feels back to normal and feels t hat it probably was a reaction to the shot and until she sees Cardiology, she is going to withhold. I also told her to check with her neurologist whom she has seen approximately 1 month ago, Dr. Luisana de luna nd I will discuss this case further with him as she has been on the drug for some time. She also was requesting about vestibular rehab, which she underwent years ago as well as she has been quite dizzy due to her MS. Her blood pressure is slightly elevated. She is to continue on her Entresto and her Paxil and Synthroid. To follow up with me in 1 week and neurologist in a couple of weeks depending on what the cardiophysiologist says tomorrow. She will be discharged with copies of her EKG and some rhythm strips. Impression: Near syncope, syncope, possibly drug related; multiple sclerosis, irregular control; hyp ertension, controlled. HR/MODL Voice ID: [id number] Report ID: [id number]
[2020-05-06 12:11] VITALS: BP 140/68; TEMP 97.8
--- NOTE | 2020-05-07 04:34 | EKG ---
Test Date: 2020-05-05 Test Time: 23:51:43 Activities Volunteer: RACHEL MEASUREMENT RESULTS: Intervals: Rate: 69 IL: 180 QRSD: 150 QT: 478 QTc: 512 Marshall: P: 70 IL: 180 QRS: 73 T: 264 INTERPRETIVE STATEMENTS: Normal sinus rhythm Left bundle branch block Abnormal ECG Compared to ECG 01/30/2020 14:18:22 No significant changes Electronically Signed On 05-07-20 04:32:21 CDT by Wellington Ely
== END 2020-05-06 12:56 | disposition home or self-care (01) | DRG 312 ==
LOC: ER 23:38 → ERHOLD 05-06 06:27 → 4TH 05-06 07:43
PROVIDERS: ADMIT Family Medicine; ATTEND Family Medicine
DX: R55 Syncope and collapse (principal); G35 Multiple sclerosis; I10 Essential (primary) hypertension; E11.9 Type 2 diabetes mellitus without complications; T50.7X5A Adverse effect of analeptics and opioid receptor antagonists, initial encounter; R00.1 Bradycardia, unspecified; Z88.1 Allergy status to other antibiotic agents; Z91.011 Allergy to milk products; Z90.710 Acquired absence of both cervix and uterus; Z90.49 Acquired absence of other specified parts of digestive tract; Z20.822 Contact with and (suspected) exposure to COVID-19
CPT/HCPCS: 36415; 70450; 71275; 72125; 80048; 80076; 81003; 82550; 82553; 82947; 83690; 83735; 84484; 85025; 85610; 85730; 93005; 99285; Q9967; U0003

== ENCOUNTER 2022-02-21 15:31 | Emergency (ER) | payer BC, OTHER ==
--- OUTSIDE RECORDS SUMMARY | 2022-02-21 15:40 | XMS REPORT | Continuity of Care Document ---
:1950 Author Organization [facility] t Address [address] [place] [address] [address]. [address] [place] [address] Care Team Providers Name Role Phone Casey Adkins Primary Care Physician FLORENCIO UGARTE Attending Clinician Unavailable Nicho Burgos Attending Clinician Unavailable Dwayne Gregory MD Attending Clinician Logan Attending Clinician Unavailable Doctor Unassigned, Paint Attending Clinician Unavailable DWAYNE GREGORY Attending Clinician Unavailable DWAYNE GREGORY Attending Clinician Unavailable Kenroy Esposito Attending Clinician [phone] Aura Jones MD Attending Clinician RADIOLOGY Attending Clinician Unavailable Radiology Attending Clinician Unavailable CHLOE WILEY Attending Clinician Unavailable Chloe Guaman Attending Clinician YOHANA MAE Attending Clinician Unavailable Regi Lantigua Attending Clinician Tu PHDYohana Attending Clinician JUSTYN CHILEL Attending Clinician Unavailable RONALDO WHITAKER Attending Clinician Unavailable Julianne DNP, STRAIGHT LINE PRESS SETTER, CNP-BCRonaldo Attending Clinician Stephanie Dempsey RN Attending Clinician Unavailable Vinny Badillo MD Attending Clinician Bora STEIN, Asmita Emmanuel Attending Clinician Unavailable Lab, Adc Fam Pob I Attending Clinician Unavailable Adolfo JAQUEZ, Jeffrey Pelaez Attending Clinician JEFFREY MARTINEZ Attending Clinician Unavailable Florencio Ugarte MD Attending Clinician Anne HANNAH, Kamala Attending Clinician Jareth STEIN, Kathya Suazo Attending Clinician Unavailable SHARIF ORTIZ Attending Clinician Unavailable Only, Adc Test Attending Clinician Unavailable Sharif Quintana Attending Clinician Home GARRETT, Sally Steiner Attending Clinician [phone] Daya Mcclain Attending Clinician Jenn Anderson Attending Clinician SALLY BHAT Attending Clinician Unavailable DONOVAN HERNANDEZ Attending Clinician Unavailable FAUZIA CHURCHILL Attending Clinician Unavailable Nilay Robbins Attending Clinician Unavailable FLORENCIO UGARTE Admitting Clinician Unavailable Logan Admitting Clinician Unavailable NICHO BURGOS Admitting Clinician Unavailable DWAYNE GREGORY Admitting Clinician Unavailable Florencio Ugarte MD Admitting Clinician Payers Payer Name Policy Type Policy Number Effective Date Expiration Date S marisela BCBS [facility] - [id number] 2016 OUT OF STATE 00:00:00 MEDICARE PART A [id number] 1996 \T\ B 00[place]00[place] [id number] 2020 00:00:00 Problems Condition Condition Condition Status Onset Resolution Last Treating Co mments Source Name Details Category Date Date Treatment Clinician Date History of History of Disease Active M ethodi rectal rectal 2-17 st surgery surgery 00:00: Hospita 00 l Nuclear Nuclear Disease Active Overview: Univ ers senile senile 2-28 [place] ity of cataract cataract 00:00: g of this [place] as of both of both 00 note Medical eyes eyes might be Branch different from the original. 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 Dysfunctio 1-12 Me tro n of the n of the 00:00: Urolog y urinary Urinary 00 bladder Bladder Midline Midline Problem Active [place] cystocele Cystocele 1-31 Metr o 00:00: Urology 00 Urinary Urinary Problem Active [place] tract Tract 1-30 [place] infectious Infectious 00:00: Ur ology disease Disease 00 Neurogenic Neurogenic Problem Active [place] bladder Bladder 6-07 [place] 00:00: Urology 00 Allergies, Adverse Reactions, Alerts Allergy Allergy Status Severity Reaction(s) Onset Inactive Treating Comm ents Source Name Type Date Date Clinician sulfamet DA Active [facility] hoxazole 03-25 [place] 00:[facility]: d 00 [facility] trimetho DA Active [facility] prim 03-25 [place] 00:[facility]: d 00 [facility] BACTRIM DA Active [facility] 03-25 [place] 00:00: d 00 [facility] Paroxeti Propensi Active Method i ne ty to 9-05 st adverse 00:00: Hospita reaction 00 l s to drug Sulfa Propensi Active Rash 2016- [facility] (Sulfona ty to 9-03 ity of mide adverse 00:00: [place] Antibiot reaction 00 Medica l ics) s Branch Sulfa Drug Active [facility] Sulfa Propensi Active Methodi (Sulfona ty to 5-18 st mide adverse 00:00: Hospita Antibiot reaction 00 l ics) s to drug sulfamet DA Active U [facility] hoxazole 02-28 [place] 00:00: d 00 [facility] trimetho DA Active U [facility] prim 02-28 [place] 00:00: d 00 [facility] BACTRIM DA Active U [facility] 02-23 [place] 00:00: d 00 [facility] No Known DA Active U [facility] Contrast 02-23 [place] Allergie 00:00: d s 00 [facility] Center No Known DA Active U [facility] Food 02-23 [place] Allergie 00:00: d s 00 Medical Center No Known DA Active U [facility] Other 02-23 [place] Allergie 00:00: d s 00 Medical Center Cipro Allergy Active Hives [place] to 02-21 [facility] substan 00:00: Urology e 00 Sulfamet Allergy Active [place] hoxazo to 02-21 [facility] substan 00:00: Urology e 00 Family History Family Member Diagnosis Comments Start Date Stop Date Source Maternal grandfather No Known Problems [facility] Maternal grandmother No Known Problems [facility] Maternal uncle No Known Problems [facility] Natural mother No Known Problems [facility] Paternal aunt No Known Problems [facility] Paternal grandfather No Known Problems [facility] Paternal grandmother No Known Problems [facility] Paternal uncle No Known Problems [facility] Natural sister No Known Problems [facility] Natural brother No Known Problems [facility] Natural father No Known Problems [facility] Maternal aunt No Known Problems [facility] Social History Social Habit Start Date Stop Date Quantity Comments Source History of Current smoker [facility] tobacco use [facility] Exposure to 2021-05-03 2021-06-[address] [facility]-CoV-2 00:00:00 15:48:[address] [facility] [place] Alcohol intake 2021-04-10 2021-04-10 Current [facility] 00:00:00 00:00:00 non-drinker of alcohol (finding) Tobacco use and 2017-03-23 2017-03-23 Smokeless tobacco [facility] exposure 00:00:00 00:00:00 non-user Sex [birth year] [facility] 00:00:00 00:00:00 Smoking Status Start Date Stop Date Source Current Every Day [facility] Urology Smoker Ex-smoker 2018-05-12 00:00:00 2018-05-12 00:00:00 [facility] Never smoked tobacco [facility] Medications Ordered Filled Start Stop Current Ordering Indication Dosage Frequency Signature Comments Components Source Medication Medication Date Date Medication? Clinician (SIG) Name Name glatiramer 2021-02 Yes [id number] 40mg inject 1 Univers (COPAXONE) 1-23 mL under ity o f 40 mg/mL 00:00: the skin [place] Syrg 00 every Medical other day. Branch No more than 3 times a week. glatiramer 2021- Yes [id number] 40mg inject 1 [facility] (COPAXONE) 1-23 mL under ity o f 40 mg/mL 00:00: the skin [place] Syrg 00 every Medical other day. Branch No more than 3 times a week. PARoxetine 2021-1 Yes [id number] Take 1 U nivers 20 mg 1-02 tablet by ity of tablet 00:00: mouth once [place] 00 daily Medical Branch PARoxetine 2021-1 Yes [id number] Take 1 U nivers 20 mg 1-02 tablet by ity of tablet 00:00: mouth once [place] 00 daily Medical Branch PARoxetine 2021- Yes [id number] Take 1 U nivers 20 mg 1-02 tablet by ity of tablet 00:00: mouth once [place] 00 daily Medical Branch PARoxetine 2021-0 Yes [id number] 20mg Take 1 U nivers 20 mg 6-09 tablet by ity of tablet 00:00: mouth [place] 00 daily. Medical Branch PARoxetine 2021-0 Yes [id number] 20mg Take 1 U nivers 20 mg 6-09 tablet by ity of tablet 00:00: mouth [place] 00 daily. Medical Branch PARoxetine 2021-0 2- No [id number] 20mg Take 1 Univers 20 mg 6- tablet by ity of tablet 00:00: 00:00 mouth [place] 00 :00 daily. Medical Branch PAROXETINE 2021-0 2- No Take 1 Univ ers 20 mg 07-29- tablet by ity of tablet 00:00: 00:00 [place] :[place] daily Medical Branch glatiramer 2021-0 Yes [id number] 40mg inject 40 [facility] (COPAXONE) 5-19 mg under ity o f 40 mg/mL 00:00: the skin [place] Syrg 00 every Medical other day. Branch No more than 3 times a week. glatiramer 2021-0 Yes [id number] 40mg inject 40 [facility] (COPAXONE) 5-19 mg under ity o f 40 mg/mL 00:00: the skin [place] Syrg 00 every Medical other day. Branch No more than 3 times a week. glatiramer 2021-0 Yes [id number] 40mg inject 40 [facility] (COPAXONE) 5-19 mg under ity o f 40 mg/mL 00:00: the skin [place] Syrg 00 every Medical other day. Branch No more than 3 times a week. glatiramer Yes [id number] 40mg inject 40 [facility] (COPAXONE) 5-19 mg under ity o f 40 mg/mL 00:00: the skin [place] Syrg 00 every Medical other day. Branch No more than 3 times a week. glatiramer 2021- No [id number] 40mg inject 40 [facility] (COPAXONE) 5-19 11-23 mg under ity of 40 mg/mL 00:00: 00:00 [place] :00 every Medical other day. Branch No more than 3 times a week. PAROXETINE 2021- No Take 1 Univ ers 20 mg -03 29-08 tablet by ity of tablet 00:00: 00:00 [place] :[place] daily Medical Branch PAROXETINE 2021- No Take 1 Univ ers 20 mg 06-22-08 tablet by ity of tablet 00:00: 00:[place] :[place] daily Medical Branch methylPREDN 0 Yes [id number] Take by Univers ISolone 4-12 mouth ity of (MEDROL, 00:00: SEE-INSTRU [place] as JULIA,) 4 mg 00 CTIONS. Medica l tablets follow Branch package directions methylPREDN 2021-0 Yes [id number] Take by Univers ISolone 4-12 mouth ity of (MEDROL, 00:00: SEE-INSTRU [place] as JULIA,) 4 mg 00 CTIONS. Medica l tablets follow Branch package directions methylPREDN 2021-0 Yes [id number] Take by Univers ISolone 4-12 mouth ity of (MEDROL, 00:00: SEE-INSTRU [place] as JULIA,) 4 mg 00 CTIONS. Medica l tablets follow Branch package directions methylPREDN 2021-0 Yes [id number] Take by Univers ISolone 4-12 mouth ity of (MEDROL, 00:00: SEE-INSTRU [place] as JULIA,) 4 mg 00 CTIONS. Medica l tablets follow Branch package directions methylPREDN 2021-0 Yes [id number] Take by [facility] ISolone 4-12 mouth ity of (MEDROL, 00:00: SEE-INSTRU [place] as JULIA,) 4 mg 00 CTIONS. Medica l tablets follow Branch package directions methylPREDN 2-0 Yes [id number] Take by Univers ISolone 4-12 mouth ity of (MEDROL, 00:00: SEE-INSTRU [place] as JULIA,) 4 mg 00 CTIONS. Medica l tablets follow Branch package directions methylPREDN 2-0 Yes [id number] Take by Univers ISolone 4-12 mouth ity of (MEDROL, 00:00: SEE-INSTRU [place] as JULIA,) 4 mg 00 CTIONS. Medica l tablets follow Branch package directions methylPREDN 2-0 Yes [id number] Take by [facility] ISolone 4-12 mouth ity of (MEDROL, 00:00: SEE-INSTRU [place] as JULIA,) 4 mg 00 CTIONS. Medica l tablets follow Branch package directions sacubitriL- 2020-0 Yes 1{tbl} Take 1 [place] valsartan 3-22 tablet by ity o f (ENTRESTO) 10:28: mouth [place] 97[place]103 [place] 59 (two) Medical tablet times Branch daily. sacubitriL- 2020-0 Yes 1{tbl} Take 1 [place] valsartan 3-22 tablet by ity o f (ENTRESTO) 10:28: mouth [place] 97[place]103 mg 59 (two) Medical tablet times Branch daily. sacubitriL- 2020-0 Yes 1{tbl} Take 1 [place] valsartan 3-22 tablet by ity o f (ENTRESTO) 10:28: mouth [place] 97[place] mg 59 (two) Medical tablet times Branch daily. sacubitriL- 2020-0 Yes 1{tbl} Take 1 [place] valsartan 3-22 tablet by ity o f (ENTRESTO) 10:28: mouth [place] 97[place] mg 59 (two) Medical tablet times Branch daily. sacubitriL- 2020-0 Yes 1{tbl} Take 1 [place] valsartan 3-22 tablet by ity o f (ENTRESTO) 10:28: mouth [place] 97-[place] mg 59 (two) Medical tablet times Branch daily. sacubitriL- 2021-0 Yes 1{tbl} Take 1 [place] valsartan 3-22 tablet by ity o f (ENTRESTO) 10:28: mouth [place] 97-[place] mg 59 (two) Medical tablet times Branch daily. sacubitriL- 2020-0 Yes 1{tbl} Take 1 [place] valsartan 3-22 tablet by ity o f (ENTRESTO) 10:28: mouth 2 [place] 97-103 mg 59 (two) Medical tablet times Branch daily. sacubitriL- 2020-0 Yes 1{tbl} Take 1 [place] valsartan 3-22 tablet by ity o f (ENTRESTO) 10:28: mouth [place] 97[place] mg 59 (two) Medical tablet times Branch daily. LISINOPRIL 2019-02 Yes Take by Univ ers ORAL 2-17 mouth. ity of 13:22: [address] carvediloL 2019-02 Yes Univers (COREG) 25 2-17 ity of mg tablet 13:22: [address] fexofenadin 2019-02 Yes Univer s e 60 mg 2-17 ity of tablet 13:22: [address] LISINOPRIL 2019-02 Yes Take by Univ ers ORAL 2-17 mouth. ity of 13:22: [address] carvediloL 2019-02 Yes Univers (COREG) 25 2-17 ity of mg tablet 13:22: [address] fexofenadin 2019-02 Yes Univer s e 60 mg 2-17 ity of tablet 13:22: [address] LISINOPRIL 2019-02 Yes Take by Univ ers ORAL 2-17 mouth. ity of 13:22: [address] carvediloL 2019-02 Yes Univers (COREG) 25 2-17 ity of mg tablet 13:22: [address] fexofenadin 2019-02 Yes Univer s e 60 mg 2-17 ity of tablet 13:22: [address] LISINOPRIL 2019-02 Yes Take by Univ ers ORAL 2-17 mouth. ity of 13:22: [address] carvediloL 2019-02 Yes Univers (COREG) 25 2-17 ity of mg tablet 13:22: [address] fexofenadin 2019-02 Yes Univer s e 60 mg 2-17 ity of tablet 13:22: [address] LISINOPRIL 2019-02 Yes Take by Univ ers ORAL 2-17 mouth. ity of 13:22: [address] carvediloL 2019-02 Yes Univers (COREG) 25 2-17 ity of mg tablet 13:22: [address] fexofenadin 2019-02 Yes Univer s e 60 mg 2-17 ity of tablet 13:22: [address] LISINOPRIL 2019-02 Yes Take by Univ ers ORAL 2-17 mouth. ity of 13:22: [address] carvediloL 2019-02 Yes Univers (COREG) 25 2-17 ity of mg tablet 13:22: [address] fexofenadin 2019-02 Yes Univer s e 60 mg 2-17 ity of tablet 13:22: [address] LISINOPRIL 2019-02 Yes Take by Univ ers ORAL 2-17 mouth. ity of 13:22: [address] carvediloL 2019-02 Yes Univers (COREG) 25 2-17 ity of mg tablet 13:22: [address] fexofenadin 2019-02 Yes Univer s e 60 mg 2-17 ity of tablet 13:22: [address] LISINOPRIL 2019-02 Yes Take by Univ ers ORAL 2-17 mouth. ity of 13:22: [address] carvediloL 2019-02 Yes Univers (COREG) 25 2-17 ity of mg tablet 13:22: [address] fexofenadin 2019-02 Yes Univer s e 60 mg 2-17 ity of tablet 13:22: [address] trospium 20 2019-02 Yes [id number] 20mg Take 1 Univers mg tablet 1-16 tablet by ity o f 00:00: mouth 2 (two) Medical times [place] daily. trospium 20 2019-02 Yes [id number] 20mg Take 1 Univers mg tablet 1-16 tablet by ity o f 00:00: mouth 2 (two) Medical times [place] daily. trospium 20 2019-02 Yes [id number] 20mg Take 1 Univers mg tablet 1-16 tablet by ity o f 00:00: mouth 2 (two) Medical times Branch daily. trospium 20 2020-1 Yes [id number] 20mg Take 1 Univers mg tablet 1-16 tablet by ity o f 00:00: mouth 2 (two) Medical times Branch daily. trospium 20 2020-1 Yes [id number] 20mg Take 1 Univers mg tablet 1-16 tablet by ity o f 00:00: mouth 2 (two) Medical times Branch daily. trospium 20 2020-1 Yes [id number] 20mg Take 1 Univers mg tablet 1-16 tablet by ity o f 00:00: mouth 2 (two) Medical times Branch daily. trospium 20 2020-1 Yes [id number] 20mg Take 1 [facility] mg tablet 1-16 tablet by ity o f 00:00: mouth 2 (two) Medical times Branch daily. trospium 20 2020-1 Yes [id number] 20mg Take 1 Univers mg tablet 1-16 tablet by ity o f 00:00: mouth 2 (two) Medical times Branch daily. levoFLOXaci 2020-1 Yes 500mg Take 500 U nivers n 500 mg 1-09 mg by ity of tablet 15:14: mouth [place] 09 every 24 Medical (twenty-fo Branch ur) hours. levoFLOXaci 2020-1 Yes 500mg Take 500 U nivers n 500 mg 1-09 mg by ity of tablet 15:14: mouth [place] 09 every 24 Medical (twenty-fo Branch ur) hours. levoFLOXaci 2020-1 Yes 500mg Take 500 U nivers n 500 mg 1-09 mg by ity of tablet 15:14: mouth [place] 09 every 24 Medical (twenty-fo Branch ur) hours. levoFLOXaci 2020-1 Yes 500mg Take 500 U nivers n 500 mg 1-09 mg by ity of tablet 15:14: mouth [place] 09 every 24 Medical (twenty-fo Branch ur) hours. levoFLOXaci 2020-1 Yes 500mg Take 500 U nivers n 500 mg 1-09 mg by ity of tablet 15:14: mouth [place] 09 every 24 Medical (twenty-fo Branch ur) hours. levoFLOXaci 2020-1 Yes 500mg Take 500 U nivers n 500 mg 1-09 mg by ity of tablet 15:14: mouth [place] 09 every 24 Medical (twenty-fo Branch ur) hours. levoFLOXaci 2020-1 Yes 500mg Take 500 U nivers n 500 mg 1-09 mg by ity of tablet 15:14: mouth [place] 09 every 24 Medical (twenty-fo Branch ur) hours. levoFLOXaci 2020-1 Yes 500mg Take 500 U nivers n 500 mg 1-09 mg by ity of tablet 15:14: mouth [place] 09 every 24 Medical (twenty-fo Branch ur) hours. bimatoprost 2020-0 Yes 1[drp] Place 1 U nivers (LUMIGAN) 9-16 Drop in ity of 0.01 % 14:21: each eye [place] ophthalmic 26 at Medical drops bedtime. [place] bimatoprost 2020-0 Yes 1[drp] Place 1 U nivers (LUMIGAN) 9-16 Drop in ity of 0.01 % 14:21: each eye [place] ophthalmic 26 at Medical drops bedtime. [place] bimatoprost 2020-0 Yes 1[drp] Place 1 U nivers (LUMIGAN) 9-16 Drop in ity of 0.01 % 14:21: each eye [place] ophthalmic 26 at Medical drops bedtime. [place] bimatoprost 2020-0 Yes 1[drp] Place 1 U nivers (LUMIGAN) 9-16 Drop in ity of 0.01 % 14:21: each eye [place] ophthalmic 26 at Medical drops bedtime. [place] bimatoprost 2020-0 Yes 1[drp] Place 1 U nivers (LUMIGAN) 9-16 Drop in ity of 0.01 % 14:21: each eye [place] ophthalmic 26 at Medical drops bedtime. [place] bimatoprost 2020-0 Yes 1[drp] Place 1 U nivers (LUMIGAN) 9-16 Drop in ity of 0.01 % 14:21: each eye [place] ophthalmic 26 at Medical drops bedtime. [place] bimatoprost 2020-0 Yes 1[drp] Place 1 U nivers (LUMIGAN) 9-16 Drop in ity of 0.01 % 14:21: each eye [place] ophthalmic 26 at Medical drops bedtime. [place] bimatoprost 2020-0 Yes 1[drp] Place 1 U nivers (LUMIGAN) 9-16 Drop in ity of 0.01 % 14:21: each eye [place] ophthalmic 26 at Medical drops bedtime. [place] moxifloxaci 2020-0 Yes [id number] 1[drp] Place 1 Univers n 0.5 % 8-13 Drop in ity of ophthalmic 00:00: left eye 4 [place] drops 00 (four) Medical times Branch daily. prednisoLON 2020-0 Yes [id number] 1[drp] Place 1 Univers E acetate 1 8-13 Drop in ity o f % 00:00: left eye 4 [place] ophthalmic 00 (four) Medical suspension times Branch drops daily. ketorolac 2020-0 Yes [id number] 1[drp] Place 1 Univers 0.5 % 8-13 Drop in ity of ophthalmic 00:00: left eye 4 [place] solution 00 (four) Medical times Branch daily. moxifloxaci 2020-0 Yes [id number] 1[drp] Place 1 Univers n 0.5 % 8-13 Drop in ity of ophthalmic 00:00: left eye 4 [place] drops 00 (four) Medical times Branch daily. prednisoLON 2020-0 Yes [id number] 1[drp] Place 1 Univers E acetate 1 8-13 Drop in ity o f % 00:00: left eye 4 [place] ophthalmic 00 (four) Medical suspension times Branch drops daily. ketorolac 2020-0 Yes [id number] 1[drp] Place 1 Univers 0.5 % 8-13 Drop in ity of ophthalmic 00:00: left eye 4 [place] solution 00 (four) Medical times Branch daily. moxifloxaci 2020-0 Yes [id number] 1[drp] Place 1 Univers n 0.5 % 8-13 Drop in ity of ophthalmic 00:00: left eye 4 [place] drops 00 (four) Medical times Branch daily. prednisoLON 2020-0 Yes [id number] 1[drp] Place 1 Univers E acetate 1 8-13 Drop in ity o f % 00:00: left eye 4 [place] ophthalmic 00 (four) Medical suspension times Branch drops daily. ketorolac 2020-0 Yes [id number] 1[drp] Place 1 Univers 0.5 % 8-13 Drop in ity of ophthalmic 00:00: left eye 4 [place] solution 00 (four) Medical times Branch daily. moxifloxaci 2020-0 Yes [id number] 1[drp] Place 1 Univers n 0.5 % 8-13 Drop in ity of ophthalmic 00:00: left eye 4 [place] drops 00 (four) Medical times Branch daily. prednisoLON 2020-0 Yes [id number] 1[drp] Place 1 Univers E acetate 1 8-13 Drop in ity o f % 00:00: left eye 4 [place] ophthalmic 00 (four) Medical suspension times Branch drops daily. ketorolac 2020-0 Yes [id number] 1[drp] Place 1 Univers 0.5 % 8-13 Drop in ity of ophthalmic 00:00: left eye 4 [place] solution 00 (four) Medical times Branch daily. moxifloxaci 2020-0 Yes [id number] 1[drp] Place 1 Univers n 0.5 % 8-13 Drop in ity of ophthalmic 00:00: left eye 4 [place] drops 00 (four) Medical times Branch daily. prednisoLON 2020-0 Yes [id number] 1[drp] Place 1 Univers E acetate 1 8-13 Drop in ity o f % 00:00: left eye 4 [place] ophthalmic 00 (four) Medical suspension times Branch drops daily. ketorolac 2020-0 Yes [id number] 1[drp] Place 1 Univers 0.5 % 8-13 Drop in ity of ophthalmic 00:00: left eye 4 [place] solution 00 (four) Medical times Branch daily. moxifloxaci 2020-0 Yes [id number] 1[drp] Place 1 Univers n 0.5 % 8-13 Drop in ity of ophthalmic 00:00: left eye 4 [place] drops 00 (four) Medical times Branch daily. prednisoLON 2020-0 Yes [id number] 1[drp] Place 1 Univers E acetate 1 8-13 Drop in ity o f % 00:00: left eye 4 [place] ophthalmic 00 (four) Medical suspension times Branch drops daily. ketorolac 2020-0 Yes [id number] 1[drp] Place 1 Univers 0.5 % 8-13 Drop in ity of ophthalmic 00:00: left eye 4 [place] solution 00 (four) Medical times Branch daily. moxifloxaci 2020-0 Yes [id number] 1[drp] Place 1 Univers n 0.5 % 8-13 Drop in ity of ophthalmic 00:00: left eye 4 [place] drops 00 (four) Medical times Branch daily. prednisoLON 2020-0 Yes [id number] 1[drp] Place 1 Univers E acetate 1 8-13 Drop in ity o f % 00:00: left eye 4 [place] ophthalmic 00 (four) Medical suspension times Branch drops daily. ketorolac 2020-0 Yes [id number] 1[drp] Place 1 Univers 0.5 % 8-13 Drop in ity of ophthalmic 00:00: left eye 4 [place] solution 00 (four) Medical times Branch daily. moxifloxaci 2020-0 Yes [id number] 1[drp] Place 1 Univers n 0.5 % 8-13 Drop in ity of ophthalmic 00:00: left eye 4 [place] drops 00 (four) Medical times Branch daily. prednisoLON 2020-0 Yes [id number] 1[drp] Place 1 Univers E acetate 1 8-13 Drop in ity o f % 00:00: left eye 4 [place] ophthalmic 00 (four) Medical suspension times Branch drops daily. ketorolac 2020-0 Yes [id number] 1[drp] Place 1 Univers 0.5 % 8-13 Drop in ity of ophthalmic 00:00: left eye 4 [place] solution 00 (four) Medical times Branch daily. omeprazole 2020-0 Yes Univers 40 mg 4-01 ity of capsule 00:00: [facility] omeprazole 2020-0 Yes Univers 40 mg 4-01 ity of capsule 00:00: [facility] omeprazole 2020-0 Yes Univers 40 mg 4-01 ity of capsule 00:00: [facility] omeprazole 2020-0 Yes Univers 40 mg 4-01 ity of capsule 00:00: [facility] omeprazole 2020-0 Yes Univers 40 mg 4-01 ity of capsule 00:00: [facility] omeprazole 2020-0 Yes Univers 40 mg 4-01 ity of capsule 00:00: [facility] omeprazole 2020-0 Yes Univers 40 mg 4-01 ity of capsule 00:00: [address] omeprazole 2020-0 Yes Univers 40 mg 4-01 ity of capsule 00:00: [facility] simethicone 2017-02 Yes 1{tbl} QD Take 1 Me thodi (GAS-X 0-[address] EXTRA 13:34: mouth Hospita STRENGTH 50 daily. l ORAL) ondansetron 2017-02 Yes 4mg Q8H Take 4 mg M ethodi (ZOFRAN) 4 0-[address] MG tablet 13:32: every 8 Hospi ta 14 (eight) l hours as needed for nausea or vomiting. CETIRIZINE 2017-02 Yes 1{tbl} QD Take 1 Met hodi HCL 0-[address] (ALLERGY 13:32: mouth [facility]osp[facility] RELIEF, 14 daily. l CETIRIZINE, ORAL) esomeprazol Yes Method i e (NexIUM) 11-12 st 40 MG 00:00: Hospita capsule 00 l glycopyrrol Yes 2mg Take 2 mg U nivers ate 2 mg 6-27 by mouth ity of tablet 00:00: daily. [facility] glycopyrrol Yes 2mg Take 2 mg U nivers ate 2 mg 6-27 by mouth ity of tablet 00:00: daily. [facility] glycopyrrol Yes 2mg Take 2 mg U nivers ate 2 mg 6-27 by mouth ity of tablet 00:00: daily. [facility] glycopyrrol Yes 2mg Take 2 mg U nivers ate 2 mg 6-27 by mouth ity of tablet 00:00: daily. [facility] glycopyrrol Yes 2mg Take 2 mg U nivers ate 2 mg 6-27 by mouth ity of tablet 00:00: daily. [facility] [facility] glycopyrrol 0 Yes 2mg Take 2 mg U nivers ate 2 mg 6-27 by mouth ity of tablet 00:00: daily. [facility] glycopyrrol 0 Yes 2mg Take 2 mg U nivers ate 2 mg 6-27 by mouth ity of tablet 00:00: daily. [facility] glycopyrrol Yes 2mg Take 2 mg U nivers ate 2 mg 6-27 by mouth ity of tablet 00:00: daily. [facility] glycopyrrol Yes TAKE 1 TO U nivers ate 1 mg 6-26 2 TABLETS ity of tablet 00:00: BY MOUTH 2-3 TIMES Medical A DAY Branch glycopyrrol Yes TAKE 1 TO U nivers ate 1 mg 6-26 2 TABLETS ity of tablet 00:00: BY MOUTH 2-3 TIMES Medical A DAY Branch glycopyrrol Yes TAKE 1 TO U nivers ate 1 mg 6-26 2 TABLETS ity of tablet 00:00: BY MOUTH [place] 00 2-3 TIMES Medical A DAY Branch glycopyrrol 2017-0 Yes TAKE 1 TO U nivers ate 1 mg 6-26 2 TABLETS ity of tablet 00:00: BY MOUTH [place] 2-3 TIMES Medical A DAY Branch glycopyrrol 2016-0 Yes TAKE 1 TO U nivers ate 1 mg 6-26 2 TABLETS ity of tablet 00:00: BY MOUTH [place] 2-3 TIMES Medical A DAY Branch glycopyrrol 2016-0 Yes TAKE 1 TO U nivers ate 1 mg 6-26 2 TABLETS ity of tablet 00:00: BY MOUTH [place] 2-3 TIMES Medical A DAY Branch glycopyrrol 0 Yes TAKE 1 TO U nivers ate 1 mg 6-26 2 TABLETS ity of tablet 00:00: BY MOUTH [place] 2-3 TIMES Medical A DAY Branch glycopyrrol 0 Yes TAKE 1 TO U nivers ate 1 mg 6-26 2 TABLETS ity of tablet 00:00: BY MOUTH [place] 2-3 TIMES Medical A DAY Branch levothyroxi 0 Yes 50ug Take 50 Uni vers ne 50 mcg 6-22 mcg by ity of tablet 00:00: mouth [place] daily. [facility] carvedilol 0 Yes 25mg Take 25 mg U nivers 25 mg 6-22 by mouth ity of tablet 00:00: daily. Medical [facility] levothyroxi 2016-0 Yes 50ug Take 50 Uni vers ne 50 mcg 6-22 mcg by ity of tablet 00:00: mouth [place] daily. [facility] carvedilol 2016-0 Yes 25mg Take 25 mg U nivers 25 mg 6-22 by mouth ity of tablet 00:00: daily. Medical Branch levothyroxi 2016-0 Yes 50ug Take 50 Uni vers ne 50 mcg 6-22 mcg by ity of tablet 00:00: mouth [place] 00 daily. Medical [facility] carvedilol 0 Yes 25mg Take 25 mg U nivers 25 mg 6-22 by mouth ity of tablet 00:00: daily. [place] [facility] levothyroxi 2017-0 Yes 50ug Take 50 Uni vers ne 50 mcg 6-22 mcg by ity of tablet 00:00: mouth [place] 00 daily. Medical Branch carvedilol 2017-0 Yes 25mg Take 25 mg U nivers 25 mg 6-22 by mouth ity of tablet 00:00: daily. [place] [facility] levothyroxi Yes 50ug Take 50 Uni vers ne 50 mcg 6-22 mcg by ity of tablet 00:00: mouth [place] 00 daily. Medical Branch carvedilol Yes 25mg Take 25 mg U nivers 25 mg 6-22 by mouth ity of tablet 00:00: daily. [place] [facility] levothyroxi Yes 50ug Take 50 Uni vers ne 50 mcg 6-22 mcg by ity of tablet 00:00: mouth [place] 00 daily. Medical Branch carvedilol Yes 25mg Take 25 mg U nivers 25 mg 6-22 by mouth ity of tablet 00:00: daily. [place] [facility] Branch levothyroxi Yes 50ug Take 50 Uni vers ne 50 mcg 6-22 mcg by ity of tablet 00:00: mouth 00 daily. [facility] Branch carvedilol Yes 25mg Take 25 mg U nivers 25 mg 6-22 by mouth ity of tablet 00:00: daily. [place] [facility] levothyroxi Yes 50ug Take 50 Uni vers ne 50 mcg 6-22 mcg by ity of tablet 00:00: mouth 00 daily. [facility] Branch carvedilol Yes 25mg Take 25 mg U nivers 25 mg 6-22 by mouth ity of tablet 00:00: daily. [address] glycopyrrol Yes 2mg [id number] Take [address] [facility] ate 7- [id number] by mouth 3 Yaa es (ROBINUL) 2 09:14: 3D (three) Med ical MG tablet 23 times Center daily. glatiramer Yes Inject [facility] (COPAXONE) 7- subcutaneo Yaa es 40 mg/mL 09:14: usly. Medical Syrg 23 Center lisinopril Yes 20mg QD Take [address] (PRINIVIL,Z 7-29 by mouth Luke s ESTRIL) 20 09:14: daily. Medic al MG tablet 23 Center carvedilol Yes 12.5mg Take 12.[address] [address] (COREG) 7-29 mg by [facility] 12.5 MG 09:14: mouth 2 Medical tablet 23 (two) Center times daily with breakfast and dinner. mometasone Yes spray 2 Univ ers (NASONEX) 5-18 spray by ity of 50 00:00: intranasal [place] mcg/actuati 00 route Medical on nasal every day Branch spray in each nostril mometasone Yes spray 2 Univ ers (NASONEX) 5-18 spray by ity of 50 00:00: intranasal [place] mcg/actuati 00 route Medical on nasal every day Branch spray in each nostril mometasone Yes spray 2 Univ ers (NASONEX) 5-18 spray by ity of 50 00:00: intranasal [place] mcg/actuati 00 route Medical on nasal every day Branch spray in each nostril mometasone Yes spray 2 Univ ers (NASONEX) 5-18 spray by ity of 50 00:00: intranasal [place] mcg/actuati 00 route Medical on nasal every day Branch spray in each nostril mometasone Yes spray 2 Univ ers (NASONEX) 5-18 spray by ity of 50 00:00: intranasal [place] mcg/actuati 00 route Medical on nasal every day Branch spray in each nostril mometasone Yes spray 2 Univ ers (NASONEX) 5-18 spray by ity of 50 00:00: intranasal [place] mcg/actuati 00 route Medical on nasal every day Branch spray in each nostril mometasone Yes spray 2 Univ ers (NASONEX) 5-18 spray by ity of 50 00:00: intranasal [place] mcg/actuati 00 route Medical on nasal every day Branch spray in each nostril mometasone Yes spray 2 Univ ers (NASONEX) 5-18 spray by ity of 50 00:00: intranasal [place] mcg/actuati 00 route Medical on nasal every day Branch spray in each nostril levothyroxi Yes [id number] Take 1 [facility] ne 5-[address] (SYNTHROID, 00:00: mouth once Hosp[facility] LEVOTHROID) 00 daily on l 50 MCG an empty tablet stomach carvedilol Yes [id number] 25mg Q.5D Take 1 M ethodi (COREG) 25 5-18 tablet (25 st MG tablet 00:00: mg total) Hos maryam 00 by mouth 2 l (two) times a day with meals. lisinopril Yes [id number] 20mg Q.5D Take 1 M ethodi (PRINIVIL,Z 5-18 tablet (20 st ESTRIL) 20 00:00: mg total) Ho spita MG tablet 00 by mouth 2 l (two) times a day. PARoxetine Yes [id number] Take 1 M ethodi (PAXIL) 20 5-18 tablet(s) st MG tablet 00:00: every day Hos maryam 00 by oral l route. mometasone Yes [id number] Dagmar 2 Methodi (NASONEX) 5-18 spray(s) st 50 00:00: every day Hospita mcg/actuati 00 by l on nasal intranasal spray route. COPAXONE 40 Yes Inject 1 Me thodi mg/mL 4-[address] syringe 00:00: a week by Hospi ta 00 subcutaneo l us route omeprazole omeprazole No omeprazole [place] 40 mg 40 mg 40 mg [facility] capsule,del capsule,del capsule,de Urology ayed ayed layed release release release TAKE 1 TAKE 1 TAKE 1 CAPSULE BY CAPSULE BY CAPSULE BY MOUTH IN MOUTH IN MOUTH IN THE MORNING THE MORNING THE MORNING paroxetine paroxetine No paroxetine [place] 20 mg 20 mg 20 mg [facility] tablet TAKE tablet TAKE tablet Urology 1 TABLET BY 1 TABLET BY TAKE 1 MOUTH ONCE MOUTH ONCE TABLET BY DAILY DAILY MOUTH ONCE DAILY spironolact spironolact No spironolac [place] one 25 mg one 25 mg tone 25 mg [facility] tablet TAKE tablet TAKE tablet Urology 1 TABLET BY 1 TABLET BY TAKE 1 MOUTH ONCE MOUTH ONCE TABLET BY DAILY DAILY MOUTH ONCE DAILY carvedilol carvedilol No carvedilol [place] 25 mg 25 mg 25 mg [facility] tablet TAKE tablet TAKE tablet Urology 1 TABLET BY 1 TABLET BY TAKE 1 MOUTH TWICE MOUTH TWICE TABLET BY DAILY DAILY MOUTH TWICE DAILY carvedilol carvedilol No carvedilol [place] 6.25 mg 6.25 mg 6.25 mg [facility] tablet TAKE tablet TAKE tablet Urology 1 TABLET BY 1 TABLET BY TAKE 1 MOUTH TWICE MOUTH TWICE TABLET BY A DAY A DAY MOUTH TWICE A DAY Copaxone 40 Copaxone 40 No Copaxone [place] mg/mL mg/mL 40 mg/mL [facility] subcutaneou subcutaneou subcutaneo Urology s syringe s syringe us syringe doxycycline doxycycline No doxycyclin [place] hyclate 100 hyclate 100 e hyclate [facility] mg capsule mg capsule 100 mg U rology TAKE 1 TAKE 1 capsule CAPSULE BY CAPSULE BY TAKE 1 MOUTH TWICE MOUTH TWICE CAPSULE BY A DAY A DAY MOUTH TWICE A DAY Entresto 49 Entresto 49 No Entresto [place] mg-51 mg mg-51 mg 49 mg-51 Met ro tablet TAKE tablet TAKE mg tablet Urology 1 TABLET BY 1 TABLET BY TAKE 1 MOUTH TWICE MOUTH TWICE TABLET BY DAILY DAILY MOUTH TWICE DAILY Entresto 97 Entresto 97 No Entresto [place] mg-103 mg mg-103 mg 97 mg-103 [facility] tablet TAKE tablet TAKE mg tablet Urology 1 TABLET BY 1 TABLET BY TAKE 1 MOUTH TWICE MOUTH TWICE TABLET BY A DAY A DAY MOUTH TWICE A DAY Euthyrox 50 Euthyrox 50 No Euthyrox [place] mcg tablet mcg tablet 50 mcg M etro TAKE 1 TAKE 1 tablet Urology TABLET BY TABLET BY TAKE 1 MOUTH ONCE MOUTH ONCE TABLET BY DAILY DAILY MOUTH ONCE DAILY famotidine famotidine No famotidine [place] 20 mg 20 mg 20 mg [facility] tablet TAKE tablet TAKE tablet Urology 1 TABLET BY 1 TABLET BY TAKE 1 MOUTH EVERY MOUTH EVERY TABLET BY 12 HOURS 12 HOURS MOUTH FOR 14 DAYS FOR 14 DAYS EVERY 12 HOURS FOR 14 DAYS fluocinonid fluocinonid No fluocinoni [place] e 0.05 % e 0.05 % de 0.05 % Me tro topical topical topical Urolog y cream cream cream Gemtesa 75 Gemtesa 75 No Gemtesa 75 [place] mg tablet mg tablet mg tablet [facility] Take 1 Take 1 Take 1 Urology tablet tablet tablet every day every day every day by oral by oral by oral route for route for route for 30 days. 30 days. 30 days. hyoscyamine hyoscyamine No hyoscyamin [place] 0.125 mg 0.125 mg e 0.125 mg M etro disintegrat disintegrat disintegra Urology ing tablet ing tablet ting TAKE 1 TO 2 TAKE 1 TO 2 tablet TABLETS TABLETS TAKE 1 TO UNDER THE UNDER THE 2 TABLETS TONGUE TONGUE UNDER THE EVERY 4 TO EVERY 4 TO TONGUE 6 HOURS 6 HOURS EVERY 4 TO NEEDED NEEDED 6 HOURS NEEDED hyoscyamine hyoscyamine No hyoscyamin [place] 0.125 mg 0.125 mg e 0.125 mg M etro sublingual sublingual sublingual Urology tablet tablet tablet PLACE UNDER PLACE UNDER PLACE TONGUE 1 TO TONGUE 1 TO UNDER 2 TABLETS 2 TABLETS TONGUE 1 EVERY 4 TO EVERY 4 TO TO 2 6 HOURS 6 HOURS TABLETS NEEDED NEEDED EVERY 4 TO 6 HOURS NEEDED ivermectin ivermectin No ivermectin [place] 3 mg tablet 3 mg tablet 3 mg M etro TAKE 4 TAKE 4 tablet Urology TABLETS BY TABLETS BY TAKE 4 MOUTH ON MOUTH ON TABLETS BY DAYS 1, 3 DAYS 1, 3 MOUTH ON AND 5. AND 5. DAYS 1, 3 AND 5. montelukast montelukast No montelukas [place] 10 mg 10 mg t 10 mg [facility] tablet TAKE tablet TAKE tablet Urology 1 TABLET BY 1 TABLET BY TAKE 1 MOUTH EVERY MOUTH EVERY TABLET BY DAY IN THE DAY IN THE MOUTH EVENING EVENING EVERY DAY IN THE EVENING nitrofurant nitrofurant No nitrofuran [place] oin oin toin [facility] monohydrate monohydrate monohydrat Urology /macrocryst /macrocryst e/macrocry als 100 mg als 100 mg stals 100 capsule capsule mg capsule TAKE 1 TAKE 1 TAKE 1 CAPSULE BY CAPSULE BY CAPSULE BY MOUTH TWICE MOUTH TWICE MOUTH DAILY DAILY TWICE DAILY nystatin-tr nystatin-tr No nystatin-t [place] iamcinolone iamcinolone riamcinolo [facility] 100,000 100,000 ne 100,000 Uro logy unit/g-0.1 unit/g-0.1 unit/g-0.1 % topical % topical % topical cream APPLY cream APPLY cream TO THE TO THE APPLY TO RECTAL AREA RECTAL AREA THE RECTAL TWICE A DAY TWICE A DAY AREA TWICE FOR 10 DAYS FOR 10 DAYS A DAY FOR 10 DAYS omeprazole omeprazole No omeprazole [place] 40 mg 40 mg 40 mg [facility] capsule,del capsule,del capsule,de Urology ayed ayed layed release release release TAKE 1 TAKE 1 TAKE 1 CAPSULE BY CAPSULE BY CAPSULE BY MOUTH IN MOUTH IN MOUTH IN THE MORNING THE MORNING THE MORNING paroxetine paroxetine No paroxetine [place] 20 mg 20 mg 20 mg [facility] tablet TAKE tablet TAKE tablet Urology 1 TABLET BY 1 TABLET BY TAKE 1 MOUTH ONCE MOUTH ONCE TABLET BY DAILY DAILY MOUTH ONCE DAILY Proctosol Proctosol No Proctosol [place] HC 2.5 % HC 2.5 % HC 2.5 % Met ro topical topical topical Urolog y cream cream cream perineal perineal perineal applicator applicator applicator APPLY A APPLY A APPLY A THIN LAYER THIN LAYER THIN LAYER TO THE TO THE TO THE AFFECTED AFFECTED AFFECTED AREA(S) BY AREA(S) BY AREA(S) BY TOPICAL TOPICAL TOPICAL ROUTE 2-4 ROUTE 2-4 ROUTE 2-4 TIMES DAILY TIMES DAILY TIMES FOR 10 DAYS FOR 10 DAYS DAILY FOR 10 DAYS spironolact spironolact No spironolac [place] one 25 mg one 25 mg tone 25 mg [facility] tablet TAKE tablet TAKE tablet Urology 1 TABLET BY 1 TABLET BY TAKE 1 MOUTH ONCE MOUTH ONCE TABLET BY DAILY DAILY MOUTH ONCE DAILY carvedilol carvedilol No carvedilol [place] 25 mg 25 mg 25 mg [facility] tablet TAKE tablet TAKE tablet Urology 1 TABLET BY 1 TABLET BY TAKE 1 MOUTH TWICE MOUTH TWICE TABLET BY DAILY DAILY MOUTH TWICE DAILY carvedilol carvedilol No carvedilol [place] 6.25 mg 6.25 mg 6.25 mg [facility] tablet TAKE tablet TAKE tablet Urology 1 TABLET BY 1 TABLET BY TAKE 1 MOUTH TWICE MOUTH TWICE TABLET BY A DAY A DAY MOUTH TWICE A DAY Copaxone 40 Copaxone 40 No Copaxone [place] mg/mL mg/mL 40 mg/mL [facility] subcutaneou subcutaneou subcutaneo Urology s syringe s syringe us syringe doxycycline doxycycline No doxycyclin [place] hyclate 100 hyclate 100 e hyclate [facility] mg capsule mg capsule 100 mg U rology TAKE 1 TAKE 1 capsule CAPSULE BY CAPSULE BY TAKE 1 MOUTH TWICE MOUTH TWICE CAPSULE BY A DAY A DAY MOUTH TWICE A DAY Entresto 49 [facility]resto [facility] mg mg-51 mg 49 mg-51 Met ro tablet TAKE tablet TAKE mg tablet Urology 1 TABLET BY 1 TABLET BY TAKE 1 MOUTH TWICE MOUTH TWICE TABLET BY DAILY DAILY MOUTH TWICE DAILY Entresto 97 Entresto 97 No Entresto [place] mg-103 mg mg-103 mg 97 mg-103 [facility] tablet TAKE tablet TAKE mg tablet Urology 1 TABLET BY 1 TABLET BY TAKE 1 MOUTH TWICE MOUTH TWICE TABLET BY A DAY A DAY MOUTH TWICE A DAY Euthyrox 50 Euthyrox 50 No Euthyrox [place] mcg tablet mcg tablet 50 mcg M etro TAKE 1 TAKE 1 tablet Urology TABLET BY TABLET BY TAKE 1 MOUTH ONCE MOUTH ONCE TABLET BY DAILY DAILY MOUTH ONCE DAILY famotidine famotidine No famotidine [place] 20 mg 20 mg 20 mg [facility] tablet TAKE tablet TAKE tablet Urology 1 TABLET BY 1 TABLET BY TAKE 1 MOUTH EVERY MOUTH EVERY TABLET BY 12 HOURS 12 HOURS MOUTH FOR 14 DAYS FOR 14 DAYS EVERY 12 HOURS FOR 14 DAYS fluocinonid fluocinonid No fluocinoni [place] e 0.05 % e 0.05 % de 0.05 % Me tro topical topical topical Urolog y cream cream cream hyoscyamine hyoscyamine No hyoscyamin [place] 0.125 mg 0.125 mg e 0.125 mg M etro disintegrat disintegrat disintegra Urology ing tablet ing tablet ting tablet hyoscyamine hyoscyamine No hyoscyamin [place] 0.125 mg 0.125 mg e 0.125 mg M etro sublingual sublingual sublingual Urology tablet tablet tablet PLACE UNDER PLACE UNDER PLACE TONGUE 1 TO TONGUE 1 TO UNDER 2 TABLETS 2 TABLETS TONGUE 1 EVERY 4 TO EVERY 4 TO TO 2 6 HOURS 6 HOURS TABLETS NEEDED NEEDED EVERY 4 TO 6 HOURS NEEDED ivermectin ivermectin No ivermectin [place] 3 mg tablet 3 mg tablet 3 mg M etro TAKE 4 TAKE 4 tablet Urology TABLETS BY TABLETS BY TAKE 4 MOUTH ON MOUTH ON TABLETS BY DAYS 1, 3 DAYS 1, 3 MOUTH ON AND 5. AND 5. DAYS 1, 3 AND 5. montelukast montelukast No montelukas [place] 10 mg 10 mg t 10 mg [facility] tablet TAKE tablet TAKE tablet Urology 1 TABLET BY 1 TABLET BY TAKE 1 MOUTH EVERY MOUTH EVERY TABLET BY DAY IN THE DAY IN THE MOUTH EVENING EVENING EVERY DAY IN THE EVENING nitrofurant nitrofurant No nitrofuran [place] oin oin toin [facility] monohydrate monohydrate monohydrat Urology /macrocryst /macrocryst e/macrocry als 100 mg als 100 mg stals 100 capsule capsule mg capsule TAKE 1 TAKE 1 TAKE 1 CAPSULE BY CAPSULE BY CAPSULE BY MOUTH TWICE MOUTH TWICE MOUTH DAILY DAILY TWICE DAILY nystatin-tr nystatin-tr No nystatin-t [place] iamcinolone iamcinolone riamcinolo [facility] 100,000 100,000 ne 100,000 Uro logy unit/g-0.1 unit/g-0.1 unit/g-0.1 % topical % topical % topical cream APPLY cream APPLY cream TO THE TO THE APPLY TO RECTAL AREA RECTAL AREA THE RECTAL TWICE A DAY TWICE A DAY AREA TWICE FOR 10 DAYS FOR 10 DAYS A DAY FOR 10 DAYS Immunizations Ordered Filled Immunization Date Status Comments [facility] e Immunization Name Name Influenza Virus 2020-10-23 Completed [facility] [place] [facility] 65+ Influenza Virus 2020-10-23 Completed [facility]it [facility] of Vaccine,quad 00:00:00 [place] [facility] 65+ Influenza Virus 2020-10-23 Completed Universit y of Vaccine,quad 00:00:00 [place] [facility] 65+ Influenza Virus 2020-10-23 Completed Universit y of Vaccine,quad 00:00:00 [place] [facility] 65+ Influenza Virus 2020-10-23 Completed Universit y of Vaccine,quad 00:00:00 [place] [facility] 65+ Influenza Virus 2020-10-23 Completed Universit y of Vaccine,quad 00:00:00 [place] [facility] 65+ Influenza Virus 2020-10-23 Completed Universit y of Vaccine,quad 00:00:00 [place] [facility] 65+ Influenza Virus 2020-10-23 Completed Universit y of Vaccine,quad 00:00:00 [place] [facility] 65+ Vital Signs Vital Name Observation Time Observation Value Comments Source Height 2021-05-13 00:00:00 60 [in_i] [facility] Urolog BP Diastolic 2021-04-13 00:00:00 76 mm[Hg] [facility] Urolog Height 2021-04-13 00:00:00 60 [in_i] [facility] Urolog BMI (Body Mass 2021-04-13 00:00:00 24.6 kg/m2 [facility] Index) Urology BP Systolic 2021-04-13 00:00:00 126 mm[Hg] [facility] Body Weight 2021-04-13 00:00:00 126 [lb_av] [facility] Body height 2021-04-10 18:29:00 152.4 cm [facility] Body weight 2021-04-10 18:29:00 57.607 kg [facility] BMI 2021-04-10 18:29:00 24.80 kg/m2 [facility] Procedures Procedure Date / Time Performing Clinician Source Performed MEDICATION CORRESPONDENCE 2021-07-07 05:01:00 Doctor Unassigned, [facility] MEDICATION CORRESPONDENCE 2021-06-30 05:01:00 Doctor Unassigned, [facility] Plan of Care Planned Activity Planned Date Details Comments Source Future Scheduled 2022-02-04 COVID-19 VACCINE (#1) [facility] Test 16:41:55 [code = COVID-19 VACCINE (#1)] Future Scheduled 2022-02-04 Hepatitis C screening [facility] Test 16:41:55 (procedure) [code = [id number]] Future Scheduled 2022-02-04 BREAST CANCER [facility] Test 16:41:55 SCREENING [code = BREAST CANCER SCREENING] Future Scheduled 2022-02-04 COLONOSCOPY SCREENING [facility] Test 16:41:55 [code = COLONOSCOPY SCREENING] Future Scheduled 2022-02-04 SHINGLES VACCINES (1 Met [facility] Test 16:41:55 of 2) [code = SHINGLES VACCINES (1 of 2)] Future Scheduled 2022-02-04 65+ [facility]CCAL [facility] Test 16:41:55 VACCINE (1 - PCV) [code = 65+ PNEUMOCOCCAL VACCINE (1 - PCV)] Future Scheduled 2022-02-04 INFLUENZA VACCINE Method [facility] Test 16:41:55 [code = INFLUENZA VACCINE] Diagnostic Test 2021-04-13 urinalysis, dipstick [facility] Pending 00:00:00 [code = urinalysis, Urology dipstick] Diagnostic Test 2021-04-13 culture, urine + [facility] Pending 00:00:00 sensitivity [code = Urology culture, urine + sensitivity] Encounters Start End Encounter Admission Attending Care Care Encounter Source Date/Time Date/Time Type Type Clinicians Facility Department ID 2020-12-19 Outpatient FAREED [facility] [id number] Univers 14:18:41 FLORENCIO lala [facility] 2020-12-18 Outpatient [facility] [id number] Univers 12:35:04 FLORENCIO lala [facility] 2020-03-25 Inpatient EL Cesar, [facility] [id number] [facility] 11:00:[address] [place] [address] 2022-01-25 2022-01-25 [facility] [id number] Univers 00:00:00 00:00:00 [facility] [id number] ity of [place] [id number] Filippo as BRIELLE?BLEA [id number] [address] 2022-01-13 2022-01-[address] [facility] [id number] Univers 00:00:00 00:00:00 [facility] [id number] ity of [place] [id number] Filippo as BRIELLE?BLEA [id number] [address] 2021-12-22 2021-12-[address] [facility] [id number] Univers 00:00:00 00:00:00 [facility] [id number] ity of [place] [id number] Filippo as BRIELLE?BLEA [id number] [address] 2021-08-03 2021-08-03 [facility] [id number] Univers 00:00:00 00:00:00 [facility] [id number] ity of [place] [id number] Filippo as BRIELLE?BLEA [id number] [address] 2021-07-29 2021-07-[address] [facility] [id number] Univers 00:00:00 00:00:00 [facility] [id number] ity of [place] [id number] Filippo as BRIELLE?BLEA [id number] [address] 2021-07-28 2021-07-28 Telephone [facility] [id number] Univers 00:00:00 00:00:00 [facility] [id number] ity of [place] [id number] Filippo as BRIELLE?BLEA [id number] [address] 2021-07-10 2021-07-10 Outpatient Baum_L [facility] [id number] [place] 06:45:00 06:45:00 [facility] 2021-07-09 2021-07-09 Outpatient Baum_L [facility] [id number]- [place] 03:59:00 03:59:00 [facility] 2021-07-08 2021-07-08 Telephone Mckenzie [facility] [id number] [facility] 00:00:00 00:00:00 [facility] [id number] ity of [place] [id number] Filippo as BRIELLE?BLEA [id number] [address] 2021-07-07 2021-07-07 Orders Doctor FELIX [id number] Univers 00:00:00 00:00:00 Only Unassigned, MIKE [id number] [facility] [place] [facility] [id number] Filippo as [id number] [address] 2021-06-30 2021-06-30 Orders Doctor [place] [id number] Univers 00:00:00 00:00:00 Only Unassigned, MIKE [id number] [facility] [place] [facility] [id number] Filippo as [id number] [address] 2021-06-26 2021-06-26 Outpatient Baum_L [facility] [id number]- [place] 06:34:00 06:34:00 [facility] 2021-06-22 2021-06-22 Telephone Mckenzie SDNISSA [id number] Univers 00:00:00 00:00:00 [facility] [id number] ity of [place] [id number] Filippo as BRIELLE?BLEA [id number] [address] OFFICE [facility] 2021-06-20 2021-06-20 [facility] [id number] Univers 00:00:00 00:00:00 [facility] [id number] [facility] [id number] Filippo as BRIELLE?BLEA [id number] [address] OFFICE [facility] 2021-06-10 2021-06-10 [facility] [id number] Univers 00:00:00 00:00:00 Dwayne Gene [place] [id number] [id number] [id number] [address] 2021-06-09 2021-06-09 [facility] 1.2.840.114 [id number] Univers 00:00:00 00:00:00 [facility] [id number] ity of [place] [id number] Filippo as BRIELLE?BLEA [id number] [address] OFFICE [facility] 2021-06-08 2021-06-08 [facility] [id number] Univers 00:00:00 00:00:00 [facility] [id number] [facility]y [facility] [id number] Filippo as BRIELLE?BLEA [id number] [address] OFFICE [facility] 2021-06-02 2021-06-02 Outpatient R DWAYNE GREGORY [facility] [id number] Univers 15:40:00 17:08:46 DWAYNE GREGORY itjuanita [facility] 2021-06-02 2021-06-02 [facility] [id number] Univers 15:40:00 17:08:46 Visit [facility] [id number] ity of [place] [id number] Filippo as BRIELLE?BLEA [phone] [address] 2021-06-02 2021-06-02 Outpatient DWAYNE ALCANTARA [facility] [id number] Univers 15:40:00 17:08:46 DWAYNE GREGORY juanita [facility] 2021-06-02 2021-06-02 Outpatient DWAYNE ALCANTARA [facility] [id number] Univers 15:40:00 15:40:00 DWAYNE GREGORY juanita [facility] 2021-05-27 2021-05-27 Telephone Mckenzie [facility] 1.2.840.114 [id number] Univers 00:00:00 00:00:00 [facility] 350.1.13.10 ity of [place] 4.2.7.2.686 Filippo as BRIELLE?BLEA [phone] [address] 2021-05-26 2021-05-26 [facility] 1.2.840.114 [id number] Univers 00:00:00 00:00:00 [facility] 350.1.13.10 ity of [place] 4.2.7.2.686 Filippo as BRIELLE?BLEA [phone] [address] 2021-05-26 2021-05-26 Orders Doctor [place] 1.2.840.114 [id number] Univers 00:00:00 00:00:00 Only Unassigned, MIKE 350.1.13.10 ity of [place] [facility] 4.2.7.2.686 Filippo as [phone] [address] 2021-05-22 2021-05-22 Outpatient Baum_[place] [id number]- 202 [place] 06:10:00 06:10:00 [id number] [facility] 2021-05-22 2021-05-22 [facility] 1.2.840.114 [id number] Univers 00:00:00 00:00:00 Dwayne [facility] 350.1.13.10 it[place] of [place].7.[place] [phone] Hi dicantoni NAL [address] [place] [address] 2021-05-22 2021-05-22 Telephone [facility] 1.2.840.114 [id number] Univers 00:00:00 00:00:00 [facility] 350.1.13.10 ity of [place] 4.2.7.2.686 Filippo as BRIELLE?BLEA [id number] [address] 2021-05-14 2021-05-14 Outpatient Baum_L [facility] [id number] [place] 03:25:00 03:25:00 [facility] 2021-05-13 2021-05-13 Outpatient Baum_L [facility] [id number] [place] 02:12:00 02:12:00 [facility] 2021-05-13 2021-05-13 Outpatient Vaibhav, [facility] [id number] 00:00:00 00:00:00 Kenroy [id number] 2021-05-13 2021-05-13 Kenroy [facility] [place] - [id number] [place] 00:00:00 00:00:00 MD Vaibhav: Wood Metr o 4223 [facility], - [address] [place] [address] , Ph. 2021-05-11 2021-05-11 Refill [facility] 1.2.840.114 [id number] Univers 00:00:00 00:00:00 [facility] 350.1.13.10 ity of [place] 4.2.7.2.686 Filippo as BRIELLE?BLEA [phone] [facility] [address] 2021-04-27 2021-04-27 Telephone [facility] 1.2.840.114 [id number] [facility] 00:00:00 00:00:00 [facility] 350.1.13.10 ity of [place] 4.2.7.2.686 [place] NIGHAT[place] [phone] [address] 2021-04-14 2021-04-14 Outpatient Baum_L U [facility] [id number]- [place] 10:37:00 10:37:00 [facility] 2021-04-13 2021-04-13 Outpatient Baum_L [facility] [id number] [place] 03:40:00 03:40:00 [facility] 2021-04-13 2021-04-13 Kenroy [facility] [place] - [id number] [place] 00:00:00 00:00:00 MD Vaibhav: Israel Metr [facility] [address] [facility] Urology [facility] [address], [place] [address] , Ph. 2021-04-13 2021-04-13 Outpatient Vaibhav Amarjit [facility] [id number] 4-9 00:00:00 00:00:00 Kenroy [id number] 2021-04-09 2021-04-09 Office Karen David2.840.1 [id number] Methodi 13:00:00 13:18:33 Visit Ali 25603.1.[address] 3.430.2.7 Hospit a .3.714626 l .8 2021-04-09 2021-04-09 Outpatient KAREN [facility] [id number] 1453 [place] 00:00:00 00:00:[address] 2021-04-09 2021-04-09 Travel 1.2.840.1 1.2.366.547 [id number] Methodi 00:00:00 00:00:[address] 3.430.2.7 0.2.7.3.698 Ho spita .3.514695 084.8 l .8 2021-04-08 2021-04-08 Outpatient Baum_L [facility] [id number]- [place] 09:07:00 09:07:00 83490 [facility] 2021-04-08 2021-04-08 JUAN Kelsey 1.2.840.114 [id number] [facility] 00:00:00 00:00:00 [facility] 350.1.13.10 ity of [place] 4.2.7.2.686 Filippo as BRIELLE?BLEA [phone] [address] OFFICE [facility] 2021-04-07 2021-04-07 Travel 1.2.840.1 1.2.435.325 6696 204553 Methodi 00:00:00 00:00:[address] 3.430.2.7 0.2.7.3.698 Ho spita .3.927595 084.8 l .8 2021-04-03 2021-04-03 Telephone [facility] 1.2.840.114 [id number] Univers 00:00:00 00:00:00 [facility] 350.1.13.10 ity of [place] 4.2.7.2.686 Filippo as BRIELLE?BLEA [phone] [address] OFFICE [facility] 2021-04-03 2021-04-03 Telephone [facility] 1.2.840.114 [id number] Univers 00:00:00 00:00:00 [facility] 350.1.13.10 ity of [place] 4.2.7.2.686 [place] [phone] [address] OFFICE [facility] 2021-03-30 2021-03-30 Telephone [facility] 1.2.840.114 [id number] Univers 00:00:00 00:00:00 [facility] 350.1.13.10 ity of [place] 4.2.7.2.686 Filippo as BRIELLE?BLEA [phone] [address] OFFICE [facility] 2021-03-20 2021-03-20 Outpatient R RADIOLOGY [facility] [id number] Univers 09:59:50 23:59:00 ity of [facility] 2021-03-20 2021-03-20 Hospital Radiology [facility] 1.2.840.114 [id number] Univers 09:59:50 23:59:00 Encounter [place] 350.1.13.10 ity of [place] 4.2.7.2.686 [place] [facility] [id number] [facility] [address] 2021-03-20 2021-03-20 Outpatient R RADIOLOGY [facility] [id number] Univers 09:59:50 23:59:00 ity of [facility] 2021-03-11 2021-03-11 Outpatient R DWAYNE GREGORY [facility] [id number] Univers 11:24:01 23:59:00 DWAYNE GREGORY ity of [facility] 2021-03-11 2021-03-11 Hospital [facility] 1.2.140.294 [id number] Univers 11:24:01 23:59:00 Encounter Dwayne Pemberton [place] 350.1.13.10 it[place] of [place] 4.2.7.2.686 [place] [phone] [facility] [address] 2021-03-11 2021-03-11 Orders Doctor FELIX 1.2.840.114 [id number] Univers 00:00:00 00:00:00 Only Unassigned, MIKE 350.1.13.10 ity of [place] [facility] 4.2.7.2.686 Filippo as [phone] [facility] [address] 2021-02-27 2021-02-27 [facility] 1.2.840.114 [id number] Univers 00:00:00 00:00:00 [facility] 350.1.13.10 ity of [place] 4.2.7.2.686 Filippo as BRIELLE?BLEA [id number] [address] MEDICAL OFFICE BUILDING 2021-02-20 2021-02-20 Outpatient R [facility] [id number] Univers 13:15:00 13:15:00 ity of [facility] 2021-02-18 2021-02-18 Refill Mckenzie [facility] 1.2.840.114 [id number] Univers 00:00:00 00:00:00 [facility] 350.1.13.10 ity of [place] 4.2.7.2.686 Filippo as BRIELLE?BLEA [phone] [address] MEDICAL OFFICE BUILDING 2021-02-16 2021-02-16 Outpatient R DWAYNE GREGORY [facility] [id number] Univers 11:20:00 12:08:49 DWAYNE GREGORY [facility] 2021-02-16 2021-02-16 Office Mckenzie [facility] 1.2.840.114 [id number] Univers 11:20:00 12:08:49 Visit [facility] 350.1.13.10 ity of [place] 4.2.7.2.686 Filippo as BRIELLE?BLEA [id number] [address] OFFICE [facility] 2021-02-15 2021-02-15 [facility] 1.2.840.114 [id number] Univers 00:00:00 00:00:00 [facility] 350.1.13.10 ity of [place] 4.2.7.2.686 Filippo as BRIELLE?BLEA [phone] [address] OFFICE [facility] 2021-01-09 2021-01-09 Outpatient Clarence WILEY [facility] [id number] Univers 09:00:00 11:18:41 CHLOE hernandez [facility] 2021-01-09 2021-01-09 Ancillary QUINTEN WileyIT 1.2.840.114 [id number] Univers 08:45:25 11:18:41 Visit Chloe Hess 350.1.13.10 it y of [place] 4.2.7.2.686 Filippo as BANK [phone] [facility]. [address] [place] 2021-01-02 2021-01-02 Case Saurabh, QUINTENIT 1.2.555.420 [id number] [id number] Univers 00:00:00 00:00:00 Management Chloe Hess 350.1.13.10 ity of [place] 4.2.7.2.686 Filippo as BANK [phone] [facility]. [address] [place] 2020-12-22 2020-12-22 [facility]patient [facility] [id number] Univers 13:00:00 13:00:00 YOHANA david [facility] 2020-12-19 2020-12-19 Outpatient [facility] [id number] Univers 10:30:00 10:43:32 YOHANA ity of [facility] 2020-12-19 2020-12-19 Ancillary Regi Canales [facility] 1.2.840.11 [id number] Univers 09:57:09 10:43:32 Visit Yohana Mae 350.1.13.10 ity of [place] 4.2.7.2.686 Filippo as BANK [phone] [facility]. [address] 2020-12-19 2020-12-19 Orders Doctor FELIX 1.2.840.114 [id number] Univers 00:00:00 00:00:00 Only Unassigned, MIKE 350.1.13.10 ity of [place] [facility] 4.2.7.2.686 Filippo as [phone] [facility] [address] 2020-12-16 2020-12-16 Ancillary Chloe Wiley UNIVERS 1.2.840.1 14 [id number] Univers 14:38:14 15:13:07 Visit Viviane Maeorah Chris Hess 350.1.13.10 ity of [place] 4.2.7.2.686 Filippo as BANK [phone] [facility]. [address] 2020-12-16 2020-12-16 Outpatient R [facility] [id number] Univers 15:00:00 15:00:00 ity of [facility] 2020-11-20 2020-11-20 [facility] 1.2.840.114 [id number] Univers 00:00:00 00:00:00 Dwayne Alarcon 350.1.13.10 ity of [place].2.7.2.686 [place] [phone] Hi dical nal [address] [facility] 2020-10-23 2020-10-23 [facility] 1.2.840.114 [id number] Univers 00:00:00 00:00:00 Dwayne Alarcon 350.1.13.10 ity of [place].2.7.2.686 [place] [phone] Hi dical nal [address] [facility] 2020-09-262020-09-26 [facility] 1.2.840.114 [id number] Univers 00:00:00 00:00:00 Dwayne Alarcon 350.1.13.10 ity of [place] 4.2.7.2.686 [place] [phone] [address] 2020-09-02 2020-09-02 [facility] 1.2.840.114 [id number] Univers 00:00:00 00:00:00 Dwayne Alarcon 350.1.13.10 ity of [place] 4.2.7.2.686 [place] [phone] [address] 2020-09-02 2020-09-02 Telephone [facility] 1.2.840.114 [id number] Univers 00:00:00 00:00:00 Dwyane Gasparton 350.1.13.10 ity of [place] 4.2.7.2.686 [place] [phone] [address] 2020-07-07 2020-07-07 [facility] 1.2.840.114 [id number] Univers 00:00:00 00:00:00 Dwayne Gasparton 350.1.13.10 ity of [place] 4.2.7.2.686 [place] [phone] [address] 2020-07-04 2020-07-04 [facility] 1.2.840.114 [id number] Univers 00:00:00 00:00:00 Dwayne Gas[place]on 350.1.13.10 ity of [place] 4.2.7.2.686 [place] [phone] [address] 2020-05-12 2020-05-12 Office [facility] 1.2.840.114 [id number] 972 Univers 10:18:55 10:51:30 Visit Dwayne Alarcon 350.1.13.10 ity of [place] 4.2.7.2.686 [place] [phone] Hi dical nal 092 [facility] 2020-05-12 2020-05-12 Outpatient DWAYNE ALCANTARA [facility] [id number] Univers 09:40:00 09:40:00 DWAYNE GREGORY [facility] 2020-04-15 2020-04-15 Office Mckenzie [facility] 1.2.840.114 [id number] Univers 09:58:21 11:53:50 Visit Dwayne Alarcon 350.1.13.10 ity of [place] 4.2.7.2.686 [place] [phone] Hi dical nal [address] [place] [address] 2020-04-15 2020-04-15 Office Mckenzie [facility] 1.2.840.114 [id number] 09:58:21 11:53:50 Visit Dwayne Alarcon 350.1.13.10 [place] 4.2.7.2.686 Professio [phone] [address] 2020-04-15 2020-04-15 Outpatient DWAYNE ALCANTARA [facility] [id number] Univers 09:40:00 09:40:00 DWAYNE GREGORY juanita [facility] 2020-03-19 2020-03-19 Outpatient GETACHEW, [facility] [id number] [address] [place] [address] 00:00:00 00:00:[address] NAD[address] 2020-03-13 2020-03-13 Orders Doctor [place] 1.2.840.114 [id number] Univers 00:00:00 00:00:00 Only Unassigned, MIKE 350.1.13.10 ity of [place] [facility] 4.2.7.2.686 Filippo as [phone] [address] 2020-02-08 2020-02-08 Office Mckenzie [facility] 1.2.840.114 [id number] Univers 15:51:02 16:34:46 Visit Dwayne Alarcon 350.1.13.10 ity of [place] 4.2.7.2.686 [place] [phone] Hi dical nal 2 [facility] 2020-02-08 2020-02-08 Outpatient DWAYNE ALCANTARA [facility] [id number] Univers 15:40:00 15:40:00 DWAYNE GREGORY itjuanita [facility] 2020-02-07 2020-02-07 Outpatient R JULIANNE [facility] [id number] Univers 16:30:00 16:30:00 RONALDO izaguirrey [facility] 2020-02-07 2020-02-07 Office [facility] 1.2.840.114 [id number] Univers 13:04:59 14:52:31 Visit Ronaldo [facility] 350.1.13.10 ity of [place]2.7.2.686 [place] [phone] [address] 2020-02-07 2020-02-07 [facility] 1.2.840.114 [id number] Univers 00:00:00 00:00:00 Dwayne Alarcon 350.1.13.10 ity of [place] 4.2.7.2.686 [place] [phone] Hi dical nal 2 [facility] 2020-02-04 2020-02-04 [facility] [id number] Univers 14:00:00 14:00:00 RONALDO izaguirrey [facility] 2020-01-07 2020-01-07 Office [facility] 1.2.840.114 [id number] Univers 13:33:39 15:30:37 Visit Ronaldo [facility] 350.1.13.10 [place].2.[place] [phone] [address] Office [facility] 2020-01-07 2020-01-07 Outpatient [facility] [id number] Univers 14:30:00 14:30:00 RONALDO ity [facility] 2020-01-04 2020-01-04 Office [facility] 1.2.840.114 [id number] Univers 08:53:40 10:01:30 Visit Ronaldo [facility] 350.1.13.10 [place]2.[place] [phone] [address] Office [facility] 2020-01-04 2020-01-04 Outpatient R [facility] [id number] Univers 09:00:00 09:00:00 RONALDO ity of [facility] 2020-01-03 2020-01-03 Telephone [facility] 1.2.840.114 [id number] Univers 00:00:00 00:00:00 Ronaldo Osorio SPECIALTY 350.1.13.10 ity of [place] 4.2.7.2.686 [place] AT [phone] Hi joshua [address] 2019-12-31 2019-12-31 Office [facility] 1.2.840.114 [id number] Univers 14:45:48 16:57:27 Visit Ronaldo Osorio [facility] 350.1.13.10 it[place].2.686 [place] [phone] [address] Office [facility] 2019-12-31 2019-12-31 Outpatient R [facility] [id number] Univers 14:00:00 14:00:00 RONALDO ity [facility] 2019-12-31 2019-12-31 Orders Doctor [place] 1.2.840.114 [id number] Univers 00:00:00 00:00:00 Only Unassigned, MIKE 350.1.13.10 ity of [place] HOSPITAL 4.2.7.2.686 Filippo as [phone] [facility] [address] 2019-12-31 2019-12-31 Nurse FELIX Dempsey 1.2.840.114 [id number] Univers 00:00:00 00:00:00 Triage Stephanie MCKEON 350.1.13.10 i ty of HOSPITAL 4.2.7.2.686 Filippo as [phone] [facility] [address] 2019-12-21 2019-12-21 Outpatient R [facility] [id number] Univers 11:00:00 11:00:00 RONALDO ity [facility] 2019-12-18 2019-12-18 Letter FELIX Badillo 1.2.840.114 [id number] Univers 00:00:00 00:00:00 (Out) Vinny Amos MIKE 350.1.13.10 i ty of HOSPITAL 4.2.7.2.686 Filippo as [phone] [facility] [address] [place] 2019-12-13 2019-12-13 Letter BoraFELIX 1.2.840.114 [id number] Univers 00:00:00 00:00:00 (Out) Asmitaannamarie REEDY 350.1.13.10 it y of HOSPITAL 4.2.7.2.686 Filippo as [phone] [facility] [address] [place] 2019-12-12 2019-12-12 Telephone Lab, [facility] 1.2.840.114 [id number] Univers 00:00:00 00:00:00 Fam Pob I Health 350.1.13.10 ity of [place] 4.2.7.2.686 Filippo as Professio [phone] Hi joshua salazar [address] Office [facility] 2019-12-03 2019-12-03 Orders Doctor FELIX 1.2.840.114 [id number] Univers 00:00:00 00:00:00 Only Unassigned, MIKE 350.1.13.10 [place]y of [place] HOSPITAL 4.2.7.2.686 Filippo as [phone] [place] [address] [address] 2019-11-30 2019-11-30 Office Jeffrey Martinez [facility] 1.2.840.114 [id number] Univers 13:40:38 16:23:11 Visit Benigno SPECIALTY 350.1.13.10 ity of [place] 4[place]2.7.2.686 [place] CENTER AT [phone] Hi dicantoni VICTORY 098 [facility] 2019-11-30 2019-11-30 Outpatient R JEFFREY MARTINEZ [facility] [id number] Univers 13:30:00 13:30:00 ity of [facility] 2019-11-29 2019-11-29 Telemedici Fareed [facility] 1.2.840.114 [id number] Univers 14:45:30 15:31:20 ne Visit Florencio NESSPEC 350.1.13.10 ity of [place] 4.2.7.2.686 [place] CENTER [phone] [facility] AND [address] [facility]ES [facility] 2019-11-29 2019-11-29 Outpatient R FAREED, [facility] [id number] Univers 15:30:00 15:30:00 FLORENCIO ity of [facility] 2019-11-20 2019-11-20 Outpatient R [facility] [id number] Univers 11:20:00 11:20:00 ity of [facility] 2019-11-20 2019-11-20 Laboratory Lab, Adc Fam Pob I [facility] 1.2. 840.114 [id number] Univers 10:45:34 11:05:34 Only Anenena, Kamala [facility] 350.1.13.10 ity of [place] 4.2.7.2.686 Filippo as Professio [phone] [facility] [address] [place] Office [address] [facility] 2019-11-20 2019-11-20 Letter Doctor FELIX 1.2.840.114 [id number] Univers 00:00:00 00:00:00 (Out) Unassigned, MIKE 350.1.13.10 ity of [place] [facility] 4.2.7.2.686 Filippo as [phone] [address] 2019-11-19 2019-11-19 [facility] [id number] Univers 15:30:00 15:30:00 FLORENCIO ity of [facility] 2019-11-19 2019-11-19 Telephone Fareed, UNIVERSIT 1.2.840.114 [id number] Univers 00:00:00 00:00:00 Florencio Hess 350.1.13.10 ity of [place] 4.2.7.2.686 Filippo as BANK [phone] [facility]. [address] [place] [address] 2019-11-08 2019-11-08 Office Fareed, UNIVERSIT 1.2.840.114 [id number] Univers 09:55:42 10:53:56 Visit Florencio Hess 350.1.13.10 ity of [place] 4.2.7.2.686 Filippo as BANK [phone] [facility]. [address] 2019-11-08 2019-11-08 [facility] [id number] Univers 10:00:00 10:00:00 FLORENCIO ity of [facility] 2019-11-07 2019-11-07 Nurse Graham [place] 1.2.840.114 [id number] Univers 00:00:00 00:00:00 Triage d, Kathya Suazo MIKE 350.1.13.10 ity of [facility] 4.2.7.2.686 Filippo as [phone] [facility] [address] 2019-11-07 2019-11-07 Orders Doctor FELIX 1.2.840.114 [id number] Univers 00:00:00 00:00:00 Only Unassigned, MIKE 350.1.13.10 ity of [place] [facility] 4.2.7.2.686 Filippo as [phone] [facility] [address] 2019-10-10 2019-10-10 Telephone [facility] 1.2.840.114 [id number] Univers 00:00:00 00:00:00 Dwayne Alarcon 350.1.13.10 ity of [place]2.7.2.686 [place] [facility] [phone] [facility] 092 [facility] 2019-10-09 2019-10-09 [facility] 1.2.326.751 [id number] [id number] Univers 10:00:00 23:59:00 Encounter Dwayne Alarcon 350.1.13.10 ity of [place] 4.2.7.2.686 [place] [phone] [facility] [address] 2019-10-09 2019-10-09 Outpatient DWAYNE ALCANTARA [facility] [id number] Univers 00:00:00 00:00:00 DWAYNE GREGORY ity of [facility] 2019-10-04 2019-10-04 [facility] 1.2.840.114 [id number] Univers 13:35:53 14:11:20 Visit Florencio CASANOVA 350.1.13.10 ity [facility] 4.2.7.2.686 [place] [phone] [facility] AND [address] [facility] 2019-10-04 2019-10-04 Outpatient R FAREED [facility] [id number] Univers 13:30:00 13:30:00 FLORENCIO ity [facility] 2019-09-27 2019-09-27 Office SOCRATES Ugarte 1.2.840.114 [id number] Univers 10:31:02 11:12:43 Visit Florencio Hess 350.1.13.10 ity of [facility] [id number] Filippo as BANK [phone] [facility] BLDG. [address] 2019-09-27 2019-09-27 Outpatient R FAREED [facility] [id number] Univers 10:30:00 10:30:00 FLORENCIO ity [facility] 2019-09-27 2019-09-27 Outpatient R FAREED [facility] [id number] Univers 10:30:00 10:30:00 FLORENCIO izaguirrey [facility] 2019-09-25 2019-09-25 Outpatient R DIANA [facility] [id number] Univers 11:00:00 11:00:00 SHARIF ity [facility] 2019-09-24 2019-09-24 Laboratory Only, Adc Test [facility] 1.2.840. [id number] Univers 10:05:16 10:20:16 Only Florencio Ugarte [id number] 0 ity of [place] [id number] [facility] [phone] [facility] [address] 2019-09-24 2019-09-24 Outpatient Clarence UGARTE [facility] [id number] Univers 10:15:00 10:15:00 FLORENCIO ity [facility] 2019-09-24 2019-09-24 Orders Doctor [place] 1.2.840.114 [id number] Univers 00:00:00 00:00:00 Only Unassigned, MIKE 350.1.13.10 ity of [place] [facility] [id number] Filippo as [phone] [facility] [address] 2019-09-23 2019-09-23 Sendy Gregory [facility] 1.2.840.114 [id number] Univers 00:00:00 00:00:00 Dwayne Alarcon [id number] ity of [id number] [phone] [place] dic[place] [address] [facility] 2019-09-18 2019-09-18 Office Mckenzie [facility] 1.2.840.114 [id number] Univers 15:59:46 16:45:07 Visit Dwayne Alarcon [id number] ity [place] [id number] [phone] [facility] [address] [facility] 2019-09-18 2019-09-18 Outpatient R DWAYNE GREGORY [facility] [id number] Univers 15:40:00 15:40:00 DWAYNE GREGORY david [facility] 2019-09-17 2019-09-17 Telephone Mckenzie [facility] 1.2.840.114 [id number] Univers 00:00:00 00:00:00 Dwayne [place] [id number] ity [place] [id number] [phone] [place] [id number] [facility] 2019-09-12 2019-09-12 Telephone Ramírezalcidesbonnie [facility] 1..840.114 [id number] Univers 00:00:00 00:00:00 Florencio Hess [id number] ity of [facility] 4.2.7.2.686 Filippo as BANK [phone] [facility]. [address] 2019-09-11 2019-09-11 Outpatient R MCKENZIE, DWAYNE [facility] [id number] Univers 13:00:00 13:00:00 DWAYNE GREGORY itjuanita [facility] 2019-09-11 2019-09-11 Ancillary Adolfo Ortizn UNIVERSIT 1..840. 114 [id number] Univers 10:11:22 11:03:57 Visit Yohana Mae 350.1.13.10 ity of [facility] [id number] Filippo as BANK [phone] [facility] [address] 2019-09-11 2019-09-11 Outpatient Clarence MAE [facility] [id number] Univers 10:30:00 10:30:00 YOHANA hernandez of [facility] 2019-09-04 2019-09-04 Office Home, UNIVERSIT 1.2.840.114 [id number] Univers 09:34:45 11:09:05 Visit Sally Hess [id number] i ty of [place] [facility] 4.2.7.2.686 Filippo as BANK [phone] [facility]. [address] 2019-09-04 2019-09-04 [facility]illary [facility] 1.2.84 0.114 [id number] Univers 09:34:32 11:08:57 Visit Yohana Mae [id number] ity of [facility] [id number] Filippo as BANK [phone] [facility]. [address] 2019-09-04 2019-09-04 Outpatient R TU [facility] [id number] 1896 [facility] 09:45:00 09:45:00 YOHANA dmitriyjuanita [facility] 2019-08-31 2019-08-31 [facility] 1.2.840.114 [id number] 389 [facility] 09:38:54 10:11:22 Visit Dwayne Alarcon 350.1.13.10 ity of [place] [phone] [facility] 092 [facility] 2019-08-31 2019-08-31 Outpatient DWAYNE ALCANTARA [facility] [id number] Univers 09:20:00 09:20:00 DWAYNE GREGORY it of [facility] 2019-08-31 2019-08-31 Orders Doctor [place] 1..840.114 [id number] Univers 00:00:00 00:00:00 Only Unassigned, MIKE 350.1.13.10 ity of [place] [facility] 4.2.7.2.686 Filippo as [phone] [facility] [address] 2019-08-23 2019-08-23 Telephone Mckenzie [facility] 1.2.840.114 [id number] Univers 00:00:00 00:00:00 Dwayne Alarcon 350.1.13.10 ity of [place] [phone] Hi dical nal 092 [facility] 2019-06-22 2019-06-22 Telephone Carlos [facility] 1.2.840.114 [id number] Univers 00:00:00 00:00:00 Jenn Annette Juanita 350.1.13.10 i ty of NATIONAL 4.2.7.2.686 [place]ilipp[place] as BANK [phone] [facility]. [address] 2019-06-12 2019-06-12 [facility]phone [facility] 1.2.840.114 [id number] Univers 00:00:00 00:00:00 Florencio Y 350.1.13.10 ity of NATIONAL 4.2.7.2.686 Filippo as BANK [phone] [facility]. [address] 2019-04-17 2019-06-10 [facility] 1.2.840.114 [id number] Univers 13:54:08 09:39:16 Visit Florencio Hess 350.1.13.10 ity of [place] 4.2.7.2.686 Filippo as BANK [phone] [facility]. [address] 2019-06-04 2019-06-04 [facility] 1.2.840.114 [id number] Univers 00:00:00 00:00:00 Dwayne Alarcon 350.1.13.10 ity of [place] [phone] Hi dical nal 092 [facility] 2019-05-30 2019-05-30 Telemedici [facility] 1.2.840.114 [id number] Univers 07:35:09 08:05:09 ne Visit Sally Hess 350.1.13.10 ity of [place] NATIONAL 4.2.7.2.686 Filippo as BANK [phone] [facility]. [address] 2019-05-30 2019-05-30 [facility] [id number] Univers 08:00:00 08:00:00 SALLY vergara f [facility] 2019-05-29 2019-05-29 Out[facility] [id number] Univers 17:30:00 17:30:00 DONOVAN ity of [facility] 2019-05-29 2019-05-29 Outpatient R LIZ [facility] [id number] Univers 17:00:00 17:00:00 YAMIL ity of [place] [facility] 2019-05-29 2019-05-29 Telephone [facility] 1.2.840.114 [id number] Univers 00:00:00 00:00:00 Dwayne Alarcon 350.1.13.10 ity of [place] 4.2.7.2.686 [facility] [phone] Hi dical [facility] 092 [facility] 2019-05-22 2019-05-22 Outpatient R FAREED [facility] [id number] Univers 14:00:00 14:00:00 FLORENCIO ity [facility] 2019-05-15 2019-05-15 Outpatient Clarence UGARTE [facility] [id number] Univers 13:15:00 13:15:00 FLORENCIO ity [facility] 2019-04-20 2019-04-20 [facility]phone [facility] 1.2.840.114 [id number] Univers 00:00:00 00:00:00 [facility] [id number] ity of [place] 4.2.7.2.686 [facility] [place] [phone] [facility] [address] 2019-04-17 2019-04-17 Ancillary Jenn Gonzalez UNIVERSIT 1.2.84 0.114 [id number] Univers 15:23:51 15:53:51 Visit Yohana Mae 350.1.13.10 ity of [place] 4.2.7.2.686 Filippo as BANK [phone] [facility] BLDG. [address] 2019-04-17 2019-04-17 [facility] [id number] Univers 14:15:00 14:15:00 FLORENCIO ity [facility] 2019-04-17 2019-04-17 Orders Doctor [place] 1.2.840.114 [id number] Univers 00:00:00 00:00:00 Only Unassigned, MIKE 350.1.13.10 ity of [place] [facility] 4.2.7.2.686 Filippo as [phone] [place] [address] [address] 2018-11-10 2018-11-10 Ancillary Jenn Gonzalez UNIVERSIT 1.2.84 0.114 [id number] Univers 08:55:31 09:25:31 Visit Yohana Mae 350.1.13.10 ity of [place] 4.2.7.2.686 [place]ilipp[place] as BANK [phone] [facility] [address] 2018-10-27 2018-10-27 Office Fareed [facility] 1.2.840.114 [id number] Univers 12:54:03 13:58:28 Visit Florencio Hess 350.1.13.10 ity of [place] 4.2.7.2.686 [place]ilipp[place] as BANK [phone] [facility] [address] 2018-10-27 2018-10-27 Telephone QUINTEN Gonzalez 1.2.840.114 [id number] Univers 00:00:00 00:00:00 Jenn Hess 350.1.13.10 i ty of [place] 4.2.7.2.686 Filippo as BANK [phone] [facility] [address] 2018-10-27 2018-10-27 Orders Doctor FELIX 1.2.840.114 [id number] Univers 00:00:00 00:00:00 Only Unassigned, MIKE 350.1.13.10 ity of [place] [facility] 4.2.7.2.686 Filippo as [phone] [place] [address] [address] 2018-10-13 2018-10-13 Sendy Gregory [facility] 1.2.840.114 [id number] Univers 00:00:00 00:00:00 Dwayne Alarcon 350.1.13.10 ity of [place] [phone] Hi dical [facility] 092 [facility] 2018-10-12 2018-10-12 Ancillary Jenn Gonzalez UNIVERSIT 1.2.84 0.114 [id number] Univers 13:06:22 13:36:22 Visit Yohana Mae 350.1.13.10 ity of [place] 4.2.7.2.686 Filippo as BANK [phone] [facility] BLDG. [address] 2018-01-10 2018-01-10 Outpatient PALLAVI Robbins [id number] 09:13:00 09:13:00 Nilay Hodge 2017-04-12 2017-04-12 Outpatient PALLAVI Robbins [id number] 13:46:00 13:46:00 Nilay Hodge 2016-07-30 2016-07-30 Outpatient PALLAVI Robbins [id number] [facility] 13:19:00 13:19:00 Nilay Hodge Results Test Description Test Time Test Comments Results Result Comments Source SURG 2020-03-27 14:55:00 Test Item Value Reference Range Interpretation Comme nts SURG RUN DATE: (test 03/27/20 [facility] d - LAB PAGE 1 RUN TIME: 1455 Specimen Inquiry RUN USER: INTERFACE code = PATIENT: SURG) MARGIE RICHARDSONT # : [id number] LOC: GURU U #: [id number] AGE/SX: 69/F ROOM: RE03/26/20REG DR: Sunny Burgos am, MD : 48 BED: DIS: STATUS: DEP SDC TLOC: SPEC #: [id number] RECD: 03/26/20 329 STATUS: FELI CLEMENTEJefry #: [id number] LILIAM: 03/26/201328 SUBM DR: Nicho Burgos MD ENTERED: 03/26/20 SP TYPE: SURG OTHR DR: Casey Adkins MD ORDERED: SURG PATH LVL 05/28 COPIES TO: Casey Adkins MD [address] [place] [address] Nicho Burgos MD [address] [place] [address] HISTOLOGY: TISSUE ID BLK PCS LIVIA LEV PROCEDURE DISPOSITION ____ ___ ___ ___ CECUM, NOS A 1 2 COLON, NOS B 1 2 ILEUM, NOS C 1 2 C OLON, NOS D 1 2 ASCENDING COLON E 1 2 COLON, NOS F 1 2 RECTUM, NOS G 1 2 PROCEDURES: SURG PATH LVL 4 (03/26/20) TISSUES: A. CECUM, NOS - CECAL COLON POLYP B. COLON, NOS - ILEALCECAL COLON BIOPSY C. I LEUM, NOS - TERMINAL ILEUM BIOPSY D. COLON, NOS - RIGHT COLON BIOPSY E. ASCENDING COLON - ASCENDING COLON POLYP F. COLON, NOS - LEFT COLON POLYP G. RECTUM, NOS - RECTAL COLON BIOPSY CLINICAL HISTORY JANY TOCHEZIA CPT CODES CPT CODE(S): 80676T8 , , , , , , CONTINUED ON NEXT PAGE RUN DATE: 03/27/20 [facility] Israel Bailey [facility] - LAB PAGE 2 RUN TIME: 1455 Specimen Inquiry RUN USER: INTERFACE SPEC #: [id number] PATIENT: MARGIE RICHARDSON #[id number] (Continued) FINAL DIAGNOSIS A. Colon, ce cum, polypectomy: TUBULAR ADENOMA B. Colon, ileocecal valve, biopsy: TUBULAR ADENOMA C. Small intestine, terminal ileum, biopsy: TERMINAL ILEUM WITH UNREMARKABLE VILLI D. Colon, right, biopsy: COLONIC MUCOS A WITH NO PATHOLOGIC DIAGNOSIS E. Colon, ascending, polypectomy: TUBULAR ADENOMA F. Colon, left, biop sy. COLONIC MUCOSA WITH NO PATHOLOGIC DIAGNOSIS G. Colon, rectum, biopsy: COLONIC MUCOSA WITH NO PATHO LOGIC DIAGNOSIS GROSS DESCRIPTION A. Cecal colon polyp. Received in formalin is a dale tissue fragment, 0. 2 cm, all as A. B. Ileocecal valve colon biopsy. Received in formalin are three dale tissue fragments, 0.1 - 0.3 cm, all as B. C. Terminal ileum biopsy. Received in formalin are two dale tissue fragments, 0. 2 and 0.3 cm, all as C. D. Right colon biopsy. Received in formalin are three dale tissue fragments, <0.1 - 0.4 cm, all as D. E. Ascending colon polyp. Received in formalin are five dale tissue fragments, 0 .2 - 0.3 cm, all as E. F. Left colon biopsy. Received in formalin are two dale tissue fragments, 0.2 and 0.3 cm, all as F. CON TINUED ON NEXT PAGE RUN DATE: 03/27/20 [facility] - LAB PAGE 3 RUN TIME: 5 Specimen Inquiry RUN USER: INTERFACE SPEC #: [id number] PATIENT: MARGIE RICHARDSON #[id number] (Continued) GROSS DESCRIPTION (Continued ) G. Rectal colon biopsy. Received in formalin are two dale tissue fragments, 0.3 and 0.4 cm, all as G. bk /nr Grossing performed at [facility] Pathology, [address] [place] [address], [address], [place], [place] [address]. Cruz edani Director: Rick Granger M.D. MICROSCOPIC DESCRIPTION A. Cecal colon polyp. Sections demonstrate colonic mucosa with glands demonstrate crowded, hyperchromatic, pseudostratified nuclei. No evidence of high-grade dysplasia or malignancy is seen. B. Ileocecal valve colon biopsy. Sections demon strate colonic mucosa with glands demonstrating crowded, hyperchromatic, pseudostratified nuclei. No evidence of high-grade dysplasia or malignancy is seen. C. Terminal ileum biopsy. Sections demonstrate terminal ileum with unremarkable villi. No evidence of villous blunting or increased inflammation is se en. No dysplasia or malignancy is seen. D. Right colon biopsy. Sections demonstrate colonic mucosa w ith no evidence of increased acute inflammation or chronic architectural distortion. No dysplasia or malignancy is seen. E. Ascending colon polyp. Sections demonstrate colonic mucosa with glands demonstra te crowded, hyperchromatic, pseudostratified nuclei. No evidence of high-grade dysplasia or pari gnancy is seen. F. Left colon biopsy. Sections demonstrate colonic mucosa with no evidence of increase d acute inflammation or chronic architectural distortion. No dysplasia or malignancy is identified. G. Rectal colon biopsy. Sections demonstrate colonic mucosa with glands demonstrating no evidence of increased accumulation of chronic architectural distortion. No dysplasia or malignancy is identified. Signed SIGNATURE ON FILE Sarbjit Medina 03/27/20 145 5 END OF REPORT BASIC METABOLIC [id number] 13:47:00 Test Item Value Reference Range Interpretation [...] 8.9 MG/DL 8.5-10.1 N COVID 19 INHOUSE [id number] 13:34:00 Test Item Value Reference Range Interpretation Comments COVID 19 INHOUSE AG NEGATIVE Negative Per manu facturer, (test code = negative result s should [id number]) be treated aspr esumptive and, if inconsi stent with clinical signs andsymptoms or necessary for patient man agement, should betested with an alternative mol ecular assay. Negative resultsdo not preclude SA RS-CoV-2 infection and s hould not be usedas the s ole basis for patient man agement decisions. Nega tive results should be considered in t he context of apatient's r ecent exposures, hist ory, presence of cli nicalsigns and symptoms co nsistent with COVID-19. Spec Comments: PRE OPCBC W/AUTO [id number] 13:14:00 Test Item Value Reference Range Interpretation [...]
[2022-02-21] MEDS ORDERED: ONDANSETRON 4 MG/2 ML VIAL ONE (15:43)
[2022-02-21] MEDS ORDERED: MORPHINE 4 MG/ML SYR ONE (15:43)
[2022-02-21] MEDS ORDERED: LIDOCAINE 1% W/EPI 1:100,000 30 ML VIAL ONE ×2 (15:43→15:53)
--- NOTE | 2022-02-21 16:13 | RAD REPORT ---
EXAM DESCRIPTION: CT - Facial Bones W/ Mpr - 02/21/2022 4:02 pm CLINICAL HISTORY: Fall, blunt force trauma to the head and face, localized trauma between the orbit and right lateral nose. COMPARISON: CT head same date TECHNIQUE: Axial 2 millimeter thick images of the facial bones were obtained with sagittal and coron al reconstruction imaging. All CT scans are performed using dose optimization technique as appropriate and may include automated exposure control or mA/KV adjustment according to patient size. FINDINGS: No fracture of the mandible. [place] artifact present from dental implants. Condyles of the mandible are normally positioned. There is a probable nondisplaced fracture of the right lateral side of the nasal bones. There is soft tissue swelling in this region. Small amount of air is seen in the soft tissues along the right lateral nose an orbit junction. No abnormality of the right globe seen. The postseptal orbital contents are normal. No foreign body i s present. No other evidence for facial bone fracture. No acute sinus finding. Bilateral antral windows are in p lace. Nasal septum is in the midline. Mastoid air cells and middle ears are clear. No skullbase fracture. IMPRESSION: Suspected nondisplaced fracture of the right lateral side of the nasal bone. Soft tissue injury between the right orbit and nose. Air is seen in the soft tissues but no foreign b damian. No globe or postseptal orbital injury identifiable.
--- NOTE | 2022-02-21 16:15 | RAD REPORT ---
EXAM DESCRIPTION: CT - Head Brain Wo Cont - 02/21/2022 4:02 pm CLINICAL HISTORY: fall, head/facial injury COMPARISON: Facial Bones W/ Mpr dated 02/21/2022 TECHNIQUE: Axial 5 mm thick images of the head were obtained without IV contrast. All CT scans are performed using dose optimization technique as appropriate and may include automated exposure control or mA/KV adjustment according to patient size. FINDINGS: No intracranial hemorrhage, mass, edema or shift of mid-line structures. No acute cortical based infarction. Moderate atrophy is present with moderate severity chronic ischemic change of the cerebral white matter. Ventricles are in proportion to volume loss. No abnormal extra-axial fluid col lections. Arterial tree calcifications are present. There are dense physiologic calcifications along the anterior falx. Mastoid air cells are clear. Facial bones, orbits and sinuses are separately reported. No fracture of the cranial vault or skullbase. IMPRESSION: No hemorrhage or acute intracranial finding. Facial bones, orbits and sinuses are separately detailed.
[2022-02-21] MEDS ORDERED: DERMABOND SKIN ADHESIVE TOP ONE (16:55)
--- NOTE | 2022-02-21 17:26 | EDPHYS ---
Physician Documentation [facility] Name: Ramandeep Gooden Age: 71 yrs Sex: Female : 1950 Arrival Date: 02/21/2022 Time: 15:36 Bed 2 Private MD: ED Physician Anish Thomas HPI: 02/21 15:47 This 71 yrs old Female presents to ER via Ambulatory with complaints of Fall rn Injury, head injury. 15:47 Details of fall: The patient fell from an upright position, while standing. Onset: The rn symptoms/episode began/occurred just prior to arrival. Associated injuries: The patient sustained injury to the head, laceration, pain. Severity of symptoms: At their worst the symptoms were moderate, in the emergency department the symptoms are unchanged. The patient has not experienced similar symptoms in the past. The patient has not recently seen a physician. Pt tripped, struck end of [facility], no LOC, not on blood thinners, remembers all events. . Historical: - Allergies: 15:43 MILK PRODUCTS; jl7 15:43 Sulfa (Sulfonamide Antibiotics); jl7 - PMHx: 15:43 Diabetes - NIDDM; Hypertension; Hypothyroidism; Multiple Sclerosis; jl7 - Immunization history:: Client reports receiving the 2nd dose of the Covid vaccine. - Social history:: Smoking status: Patient denies any tobacco usage or history of. - Immunization history: Last tetanus immunization: unknown. - Family history:: not pertinent. - Hospitalizations: : No recent hospitalization is reported. ROS: 15:47 Constitutional: Negative for fever, chills, and weight loss, Eyes: Negative for injury, rn pain, redness, and discharge, Neck: Negative for injury, pain, and swelling, Cardiovascular: Negative for chest pain, palpitations, and edema, Respiratory: Negative for shortness of breath, cough, wheezing, and pleuritic chest pain, Abdomen/GI: Negative for abdominal pain, nausea, vomiting, diarrhea, and constipation, Back: Negative for injury and pain, MS/Extremity: Negative for injury and deformity, Skin: + laceration forehead Neuro: Negative for weakness, numbness, tingling, and seizure Exam: 15:47 Constitutional: This is a well developed, well nourished patient who is awake, alert, rn and in no acute distress. Head/Face: Normocephalic, + 11 cm deep laceration forehead, extends over nasal bridge, toward but not involving right eyelid. Eyes: Pupils equal round and reactive to light, extra-ocular motions intact. Conjunctiva and sclera are non-icteric and not injected. Cornea within normal limits. Neck: NO midline cervical tenderness Chest/axilla: Normal chest wall appearance and motion. Nontender with no deformity. No lesions are appreciated. Cardiovascular: Regular rate and rhythm. No pulse deficits. Respiratory: No increased work of breathing, no retractions or nasal flaring. Abdomen/GI: Soft, non-tender Back: No spinal tenderness. Skin: Warm, dry MS/ Extremity: Pulses equal, no cyanosis. Neurovascular intact. Full, normal range of motion. Equal circumference. Neuro: Awake and alert, GCS 15, oriented to person, place, time, and situation. Cranial nerves II-XII grossly intact. Motor strength 5/5 in all extremities. Sensory grossly intact. Cerebellar exam normal. Normal gait. Vital Signs: 15:33 BP 177 / 94; Pulse 76; Resp 18; Temp 97.6(TE); Pulse Ox 98% on R/A; Weight 58.51 kg; ss Height 5 ft. 0 in. (152.40 cm); Pain 6/10; 16:15 BP 150 / 89; Pulse 73; Resp 15; Pulse Ox 99% ; Pain 3/10; jl7 17:00 BP 135 / 80; Pulse 63; Resp 15; Temp 97.8(TE); Pulse Ox 96% on R/A; Pain 0/10; jl7 15:33 Body Mass Index 25.19 (58.51 kg, 152.40 cm) Macario Coma Score: 15:33 Eye Response: spontaneous(4). Verbal Response: oriented(5). Motor Response: obeys ss commands(6). Total: 15. 16:15 Eye Response: spontaneous(4). Verbal Response: oriented(5). Motor Response: obeys jl7 commands(6). Total: 15. 17:00 Eye Response: spontaneous(4). Verbal Response: oriented(5). Motor Response: obeys jl7 commands(6). Total: 15. Trauma Score (Adult): 15:33 Eye Response: spontaneous(1); Verbal Response: oriented(1); Motor Response: obeys ss commands(2); Systolic BP: > 89 mm Hg(4); Respiratory Rate: 10 to 29 per min(4); [place] Score: 15; Trauma Score: 12 Laceration: 17:21 Wound Repair of 11cm ( 4.3in ) subcutaneous laceration to forehead. Distal rn neuro/vascular/tendon intact. Anesthesia: Wound infiltrated with 5 mls of 1% lidocaine w/ Epi. Wound prep: Extensive cleansing by nurse, Wound irrigation by nurse, Wound explored extensively. Skin closed with 1 thin layer Adhesive skin closure using Dermabond. Subcutaneous tissue closed with 5 chromic gut using interrupted sutures and sterile technique. Patient tolerated well. MDM: 15:37 Patient medically screened. rn 16:24 Differential diagnosis: abrasion, closed head injury, contusion, fracture, laceration. rn Data reviewed: vital signs, nurses notes. 17:21 Counseling: I had a detailed discussion with the patient and/or guardian regarding: the rn historical points, exam findings, and any diagnostic results supporting the discharge/admit diagnosis, radiology results, the need for outpatient follow up, to return to the emergency department if symptoms worsen or persist or if there are any questions or concerns that arise at home. Response to treatment: the patient's symptoms have markedly improved after treatment, and as a result, I will discharge patient. Special discussion: I discussed with the patient/guardian in detail that at this point there is no indication for admission to the hospital. It is understood, however, that if the symptoms persist or worsen the patient needs to return immediately for re-evaluation. Based on the history and exam findings, there is no indication for further emergent testing or inpatient evaluation. I discussed with the patient/guardian the need to see the ENT specialist for further evaluation of the symptoms. ED course: CT head neg for acute traumatic findings. CT face shows possible right nasal bone fracture, but patient states fell 2 weeks ago striking nose and thinks broke nose then. Will dc home with abx and return precautions. Discussed ice packs and bruising to come. Family in room and present for visit and discharge instructions. . 02/21 15:38 Order name: CT Head Brain wo Cont; Complete Time: 16:20 rn 02/21 15:38 Order name: Facial Bones W/O Con CT; Complete Time: 16:20 rn 02/21 15:38 Order name: IV Start; Complete Time: 16:06 rn 02/21 15:38 Order name: Suture Tray at Bedside; Complete Time: 16:05 rn Administered Medications: 15:45 Drug: Zofran (Ondansetron) 4 mg Route: IVP; Site: left antecubital; jl7 18:02 Follow up: Response: No adverse reaction jl7 16:06 Drug: morphine 4 mg Route: IVP; Infused Over: 4 mins; Site: left antecubital; jl7 16:30 Follow up: Response: No adverse reaction; Pain is decreased jl7 17:00 Drug: Lidocaine-Epinephrine -1%: (1:100,000) 1 vials {Note: aministered by ERP.} jl7 Volume: 20 ml; Route: Infiltration; Disposition Summary: 02/21/22 17:26 Discharge Ordered Location: Home rn Problem: new rn Symptoms: have improved rn Condition: Stable rn Diagnosis - Facial laceration rn - Unspecified injury of head, initial encounter rn - Fracture of nasal bones, initial encounter for closed fracture rn Followup: rn - With: Private Physician - When: As needed - Reason: Recheck today's complaints, Re-evaluation by your physician Discharge Instructions: - Discharge Summary Sheet rn - Tissue Adhesive internet marketing manager - Head Injury, Adult rn - Facial Laceration rn - Nasal Fracture rn Forms: - Medication Reconciliation Form rn - Thank You Letter rn - Antibiotic airborne operations - Prescription Opioid Use rn Prescriptions: - Augmentin 875-125 mg Oral Tablet - take 1 tablet by ORAL route every 12 hours for 10 days; 20 tablet; Refills: 0, rn Product Selection Permitted Signatures: Dispatcher [employer] Anish Burleson MD MD rn Smirch, Shelby RN RN Fortunato Navarrete RN RN jl7
--- NOTE | 2022-02-21 17:26 | ER ---
Nurse's Notes [facility] Name: Ramandeep Gooden Age: 71 yrs Sex: Female : 1950 Arrival Date: 02/21/2022 Time: 15:36 Bed 2 Private MD: Diagnosis: Facial laceration;Unspecified injury of head, initial encounter;Fracture of nasal bones, initial encounter for closed fracture Presentation: 02/21 15:33 Chief complaint: Patient states: tripped and fell just prior to arrival hitting head on ss the counter in kitchen. Denies LOC. approximately 1.5-2 inch laceration noted to forehead. No active bleeding noted at this time. Care prior to arrival: None. Mechanism of Injury: Fall from standing position. Trauma event details: Injury occurred in the [facility], Injury occurred: at home. Injury occurred: February 21, 2022. 15:33 Acuity: BLAINE 2 ss 15:33 Method Of Arrival: Ambulatory ss 15:45 Coronavirus screen: Client denies travel out of the [place] in the last 14 days. Ebola ss Screen: Patient denies exposure to infectious person. Patient denies travel to an Ebola-affected area in the 21 days before illness onset. Initial Sepsis Screen: Does the patient meet any 2 criteria? No. Patient's initial sepsis screen is negative. Does the patient have a suspected source of infection? No. Patient's initial sepsis screen is negative. Risk Assessment: Do you want to hurt yourself or someone else? Patient reports no desire to harm self or others. Onset of symptoms was February 21, 2022. Trauma Activation: Alert Physician: ED Physician; Name: ; Notified At: ; Arrived At: Physician: General Surgeon; Name: ; Notified At: ; Arrived At: Physician: Radiology; Name: ; Notified At: ; Arrived At: Physician: Respiratory; Name: ; Notified At: ; Arrived At: Physician: Lab; Name: ; Notified At: ; Arrived At: Historical: - Allergies: 15:43 MILK PRODUCTS; jl7 15:43 Sulfa (Sulfonamide Antibiotics); jl7 - PMHx: 15:43 Diabetes - NIDDM; Hypertension; Hypothyroidism; Multiple Sclerosis; jl7 - Immunization history:: Client reports receiving the 2nd dose of the Covid vaccine. - Social history:: Smoking status: Patient denies any tobacco usage or history of. - Immunization history: Last tetanus immunization: unknown. - Family history:: not pertinent. - Hospitalizations: : No recent hospitalization is reported. Screenin:33 Abuse screen: Denies threats or abuse. Denies injuries from another. Tuberculosis ss screening: Never had TB. 15:57 [facility] ED Fall Risk Assessment (Adult) History of falling in the last 3 months, jl7 including since admission Yes- single mechanical fall (1 pt) Confusion or Disorientation No (0 pts) Intoxicated or Sedated No (0 pts) Impaired Gait No (0 pts) Mobility Assist Device Used No (0 pt) Altered Elimination No (0 pt) Score/Fall Risk Level 0 - 2 = Low Risk Oriented to surroundings, Maintained a safe environment, Educated pt \T\ family on fall prevention, incl call for assistance when getting out of bed, Assessed \T\ reinforced patient's understanding of fall precautions, Hourly rounding (assess needs \T\ fall precautionary measures) done. Nutritional screening: No deficits noted. Primary Survey: 15:33 NO uncontrolled hemorrhage observed. Breathing/Chest: Spontaneous respiratory effort, ss equal unlabored respirations, breath sounds clear bilaterally, regular pattern, symmetrical chest rise and fall. Respiratory effort: spontaneous, unlabored. Circulation: No external hemorrhage present. Regular and strong central pulse, skin warm/dry/normal color. Disability Pupils are equal, round, reactive to light and accommodation. Client is alert. Exposure/Environment: There is no evidence of uncontrolled external bleeding. 15:54 Reassessment Alertness and Airway: Awake and alert. The airway is patent. Breathing: jl7 Respiratory effort Spontaneous Unlabored Breath sounds Clear Respiratory pattern Regular Chest inspection Symmetrical Circulation: No external hemorrhage noted. Regular and strong central pulse, skin warm/dry/normal color. Disability: Alert. Assessment: 15:33 General: Appears in no apparent distress. comfortable, Behavior is calm, cooperative. ss Neuro: Level of Consciousness is awake, alert, obeys commands, Oriented to person, place, time, situation, Speech is normal, Pupils are PERRLA. Cardiovascular: Capillary refill < 3 seconds is brisk in bilateral fingers. Respiratory: Airway is patent Respiratory effort is even, unlabored, Respiratory pattern is regular, symmetrical. Derm: Skin is intact, is healthy with good turgor, Skin is pink, warm \T\ dry. normal. Injury Description: Laceration sustained to mid forehead, lateral aspect of R eye. 15:54 Pain: Complains of pain in forehead Pain currently is 6 out of 10 on a pain scale. jl7 16:44 Reassessment: Patient appears in no apparent distress at this time. Patient and/or hb family updated on plan of care and expected duration. Pain level reassessed. Patient is alert, oriented x 3, equal unlabored respirations, skin warm/dry/pink. 17:00 Reassessment: Patient appears in no apparent distress at this time. No changes from jl7 previously documented assessment. Patient and/or family updated on plan of care and expected duration. Pain level reassessed. Patient is alert, oriented x 3, equal unlabored respirations, skin warm/dry/pink. Vital Signs: 15:33 BP 177 / 94; Pulse 76; Resp 18; Temp 97.6(TE); Pulse Ox 98% on R/A; Weight 58.51 kg; ss Height 5 ft. 0 in. (152.40 cm); Pain 6/10; 16:15 BP 150 / 89; Pulse 73; Resp 15; Pulse Ox 99% ; Pain 3/10; jl7 17:00 BP 135 / 80; Pulse 63; Resp 15; Temp 97.8(TE); Pulse Ox 96% on R/A; Pain 0/10; jl7 15:33 Body Mass Index 25.19 (58.51 kg, 152.40 cm) Macario Coma Score: 15:33 Eye Response: spontaneous(4). Verbal Response: oriented(5). Motor Response: obeys ss commands(6). Total: 15. 16:15 Eye Response: spontaneous(4). Verbal Response: oriented(5). Motor Response: obeys jl7 commands(6). Total: 15. 17:00 Eye Response: spontaneous(4). Verbal Response: oriented(5). Motor Response: obeys jl7 commands(6). Total: 15. Trauma Score (Adult): 15:33 Eye Response: spontaneous(1); Verbal Response: oriented(1); Motor Response: obeys ss commands(2); Systolic BP: > 89 mm Hg(4); Respiratory Rate: 10 to 29 per min(4); [place] Score: 15; Trauma Score: 12 ED Course: 15:30 Thermoregulation: warm blanket given to patient. jl7 15:33 Patient has correct armband on for positive identification. Patient maintains SpO2 ss saturation greater than 95% on room air. 15:36 Patient arrived in ED. jl7 15:37 Anish Thomas MD is Attending Physician. rn 15:41 Triage completed. ss 15:45 Arm band placed on right wrist. ss 15:57 Pulse ox on. NIBP on. Warm blanket given. jl7 15:57 Inserted saline lock: 20 gauge in left antecubital area, using aseptic technique. jl7 16:04 CT Head Brain wo Cont In Process Unspecified. EDMS 16:04 Facial Bones W/O Con CT In Process Unspecified. EDMS 16:05 Fortunato Costello, SARITA is Primary Nurse. jl7 17:45 No provider procedures requiring assistance completed. IV discontinued, intact, jl7 bleeding controlled, No redness/swelling at site. Pressure dressing applied. Administered Medications: 15:45 Drug: Zofran (Ondansetron) 4 mg Route: IVP; Site: left antecubital; jl7 18:02 Follow up: Response: No adverse reaction jl7 16:06 Drug: morphine 4 mg Route: IVP; Infused Over: 4 mins; Site: left antecubital; jl7 16:30 Follow up: Response: No adverse reaction; Pain is decreased jl7 17:00 Drug: Lidocaine-Epinephrine -1%: (1:100,000) 1 vials {Note: aministered by ERP.} jl7 Volume: 20 ml; Route: Infiltration; Medication: 17:00 VIS not applicable for this client. jl7 Intake: 17:00 PO: 0ml; IV: 0ml; Tubes: 0ml (); Total: 0ml. jl7 Output: 17:00 Urine: 0ml; Gastric: 0ml; Stool: 0; EBL: 0ml; Drainage: 0ml; Other: 0; Total: 0ml. jl7 Outcome: 17:26 Discharge ordered by . rn 17:45 Discharged to home ambulatory, with significant other. jl7 17:45 Condition: stable 17:45 Discharge instructions given to patient, family, Instructed on discharge instructions, follow up and referral plans. medication usage, Demonstrated understanding of instructions, follow-up care, medications, Prescriptions given X 1. 18:04 Patient's length of stay was not longer than 2 hours. jl7 18:04 Patient left the ED. jl7 Signatures: Dispatcher [employer] EDMS Anish Thomas MD MD rn Smirch, Shelby, RN RN ss Baxter, Heather, RN RN hb Leal, Jahala, RN RN jl7 Corrections: (The following items were deleted from the chart) 18:02 17:44 Lidocaine-Epinephrine -1%: (1:100,000) 1 vials 20 ml Infiltration 20 ml jl7 jl7 18:03 17:44 Lidocaine-Epinephrine -1%: (1:100,000) 1 vials 20 ml Infiltration 20 ml jl7 jl7
[2022-02-21 18:14] VITALS: BP 135/80; TEMP 97.8; O2SAT 96
== END 2022-02-21 18:04 | disposition home or self-care (01) ==
LOC: ER 15:31
PROC: 0HQ1XZZ Repair Face Skin, External Approach (ICD-10-PCS; principal; 2022-02-21)
DX: S02.2XXA Fracture of nasal bones, initial encounter for closed fracture (principal); S01.81XA Laceration without foreign body of other part of head, initial encounter
CPT/HCPCS: 70450; 70486; 76377; 96375; 96374; 99284; 12015; J2405

== ENCOUNTER 2024-03-16 17:57 | Emergency (ER) | payer BC, OTHER ==
[2024-03-16] MEDS ORDERED: dexAMETHasone 10 MG/ML VIAL ONE (18:31)
[2024-03-16] MEDS ORDERED: KETOROLAC 30 MG/ML INJ ONE (18:31)
--- NOTE | 2024-03-16 19:11 | EDPHYS ---
Physician Documentation [facility] Name: Ramandeep Gooden Age: 73 yrs Sex: Female : 1950 Arrival Date: 03/16/2024 Time: 17:57 Bed 23 Private MD: ED Physician Kalpesh Mccloud HPI: 03/16 23:34 This 73 yrs old Female presents to ER via Wheelchair with complaints of Hip kb Pain, Leg Pain. 23:34 Pt is a 73 year old female who presents for pain to left buttock that radiates down kb left leg that started over one month ago. States she has had xrays and was sent to physical therapy, but it hasn't improved. States she has been to the [place] ER a few times for this and her regular dr a few times, but the medication they give her doesn't take the pain away. States she has been taking tylenol every 8 hours for the pain and it goes away but always comes back. . Historical: - Allergies: 18:24 MILK PRODUCTS; hb 18:24 Sulfa (Sulfonamide Antibiotics); hb - PMHx: 18:24 Diabetes - NIDDM; Hypertension; Hypothyroidism; Multiple Sclerosis; hb - Immunization history:: Adult Immunizations up to date. - Infectious Disease History:: Denies. - Social history:: Smoking status: Patient denies any tobacco usage or history of. ROS: 23:32 Constitutional: As per HPI kb Exam: 23:32 Constitutional: This is a well developed, well nourished patient who is awake, alert, kb and in no acute distress. Head/Face: Normocephalic, atraumatic. ENT: Moist Mucous membranes Cardiovascular: Regular rate Respiratory: Respirations even and unlabored. No increased work of breathing. Talking in full sentences Abdomen/GI: Soft, non-tender. No distention Skin: Warm, dry with normal turgor. Normal color. MS/ Extremity: Pulses equal, no cyanosis. Neurovascular intact. Full, normal range of motion. Neuro: Awake and alert, GCS 15, oriented to person, place, time, and situation. 23:32 Back: pain, that is moderate, of the left low back, upper buttock, ROM is painful, normal spinal alignment noted, CVA tenderness, is absent, Vital Signs: 18:23 BP 153 / 83; Pulse 65; Resp 16; Temp 97.7(TE); Pulse Ox 100% on R/A; Pain 9/10; hb 18:23 Pain Scale: Adult hb MDM: 18:08 Medical Screening Exam initiated kb 23:33 Differential diagnosis: arthritis, strain, fracture, sciatica. Data reviewed: vital kb signs, nurses notes. Test considered but Not performed: X-ray: xray considered but pt has had xrays that were normal. Counseling: I had a detailed discussion with the patient and/or guardian regarding the historical points, exam findings, and any diagnostic results supporting the discharge/admit diagnosis, the need for outpatient follow up, a family practitioner, to return to the emergency department if symptoms worsen or persist or if there are any questions or concerns that arise at home. ED course: Pt reports pain has improved and is ready to go home. Administered Medications: 18:39 Drug: Dexamethasone IM 10 mg IM once Route: IM; Site: right gluteus; jb4 19:27 Follow up: Response: No adverse reaction; Marked relief of symptoms jb4 18:40 Drug: Ketorolac IM 30 mg IM once Route: IM; Site: right gluteus; jb4 19:27 Follow up: Response: No adverse reaction; Marked relief of symptoms jb4 Disposition Summary: 03/16/24 19:11 Discharge Ordered Notes: Location: Home kb Condition: Stable kb Diagnosis - Sciatica, left side kb Followup: kb - With: Emergency Department - When: As needed - Reason: Worsening of condition Followup: kb - With: Private Physician - When: 2 - 3 days - Reason: Recheck today's complaints, Continuance of care, Re-evaluation by your physician Discharge Instructions: - Discharge Summary Sheet kb - Sciatica, [id number] kb - Back Exercises, [id number] kb Forms: - Medication Reconciliation Form kb - Antibiotic Education kb - Prescription Opioid Use kb - Patient Portal Instructions kb - Leadership Thank You Letter kb Prescriptions: - orphenadrine citrate 100 mg Oral Tablet Sustained Release - take 1 tablet ORAL route 2 times per day As needed; 20 tablet; Refills: 0, kb Product Selection Permitted Signatures: Karen Marshall, Beth Toribio RN RN Aniceto Quinn RN RN jb4
--- NOTE | 2024-03-16 19:11 | ER ---
Nurse's Notes [facility] Name: Ramandeep Gooden Age: 73 yrs Sex: Female : 1950 Arrival Date: 03/16/2024 Time: 17:57 Bed 23 Private MD: Diagnosis: Sciatica, left side Presentation: 03/16 18:23 Chief complaint: Pain that radiates from left buttock to left leg x 1 month. hb Coronavirus screen: At this time, the client does not indicate any symptoms associated with coronavirus-19. Ebola Screen: No symptoms or risks identified at this time. Initial Sepsis Screen: Does the patient meet any 2 criteria? No. Patient's initial sepsis screen is negative. Does the patient have a suspected source of infection? No. Patient's initial sepsis screen is negative. Risk Assessment: Do you want to hurt yourself or someone else? Patient reports no desire to harm self or others. Onset of symptoms was February 2023. 18:23 Method Of Arrival: Wheelchair hb 18:23 Acuity: BLAINE 4 hb Historical: - Allergies: 18:24 MILK PRODUCTS; hb 18:24 Sulfa (Sulfonamide Antibiotics); hb - PMHx: 18:24 Diabetes - NIDDM; Hypertension; Hypothyroidism; Multiple Sclerosis; hb - Immunization history:: Adult Immunizations up to date. - Infectious Disease History:: Denies. - Social history:: Smoking status: Patient denies any tobacco usage or history of. Screenin:26 [facility] ED Fall Risk Assessment (Adult) History of falling in the last 3 months, jb4 including since admission No falls in past 3 months (0 pts) Confusion or Disorientation No (0 pts) Intoxicated or Sedated No (0 pts) Impaired Gait Yes (1 pt) Mobility Assist Device Used Yes (1 pt) Altered Elimination No (0 pt) Score/Fall Risk Level 0 - 2 = Low Risk Oriented to surroundings, Maintained a safe environment. Abuse screen: Denies threats or abuse. Nutritional screening: No deficits noted. Tuberculosis screening: No symptoms or risk factors identified. Assessment: 18:30 General: Appears in no apparent distress. uncomfortable, Behavior is calm, cooperative, jb4 appropriate for age. Pain: Complains of pain in left low back Pain radiates to left leg Pain currently is 8 out of 10 on a pain scale. Neuro: Level of Consciousness is awake, alert, obeys commands, Oriented to person, place, time, situation. Cardiovascular: Patient's skin is warm and dry. Respiratory: Airway is patent Respiratory effort is even, unlabored, Respiratory pattern is regular, symmetrical. Derm: Skin is intact, Skin is pink, warm \T\ dry. Musculoskeletal: Circulation, motion, and sensation intact. Range of motion: intact in all extremities. 19:26 Reassessment: Patient appears in no apparent distress at this time. Patient and/or jb4 family updated on plan of care and expected duration. Pain level reassessed. Patient is alert, oriented x 3, equal unlabored respirations, skin warm/dry/pink. Vital Signs: 18:23 BP 153 / 83; Pulse 65; Resp 16; Temp 97.7(TE); Pulse Ox 100% on R/A; Pain 9/10; hb 18:23 Pain Scale: Adult hb ED Course: 18:02 Patient arrived in ED. im 18:07 Karen Marshall FNP-C [facility]. kb 18:07 Kalpesh Mccloud MD is Attending Physician. kb 18:24 Triage completed. hb 18:24 Arm band placed on. hb 19:26 Patient has correct armband on for positive identification. Bed in low position. Call jb4 light in reach. Side rails up X 1. Provided Education on: discharge instructions. 19:26 No provider procedures requiring assistance completed. Patient did not have IV access jb4 during this emergency room visit. Administered Medications: 18:39 Drug: Dexamethasone IM 10 mg IM once Route: IM; Site: right gluteus; jb4 19:27 Follow up: Response: No adverse reaction; Marked relief of symptoms jb4 18:40 Drug: Ketorolac IM 30 mg IM once Route: IM; Site: right gluteus; jb4 19:27 Follow up: Response: No adverse reaction; Marked relief of symptoms jb4 Medication: 19:26 VIS not applicable for this client. jb4 Outcome: 19:11 Discharge ordered by . kb 19:26 Discharged to home ambulatory, jb4 19:26 Condition: stable 19:26 Discharge instructions given to patient, Instructed on discharge instructions, follow up and referral plans. medication usage, Demonstrated understanding of instructions, follow-up care, medications, Prescriptions given X 1, 19:27 Patient left the ED. jb4 Signatures: Karen Marshall, ESL INSTRUCTOR-C ESL INSTRUCTOR-CkBeth Mittal, RN RN hb Aniceto Quinn, RN RN jb4 Melinda Jordan
[2024-03-16 22:14] VITALS: BP 153/83; TEMP 97.7; O2SAT 100
== END 2024-03-16 19:27 | disposition home or self-care (01) ==
LOC: ER 17:57
DX: M54.32 Sciatica, left side (principal)
CPT/HCPCS: 96372; 99284; J1100